=== PATIENT | male | born 1965 | race Caucasian/White ===

== ENCOUNTER 2016-11-29 11:17 | Day surgery (SDC) | payer BC ==
[2016-11-28 13:38] VITALS: BMI 31.7
[~2016-11-29 11:17] MED LIST: SODIUM CHLORIDE 0.9% 1,000 ML IV SCH
[2016-11-29 11:52] VITALS: RESP 16; TEMP 97.9
[2016-11-29 11:56] LABS: CH 30.9; CHCM 34.1; HCT 42.7 % (39.0-53.0); HDW 2.46; HGB 14.5 gm/dL (13.0-17.5); MCH 30.8 pg (25.0-35.0); MCHC 33.9 g/dL (31.0-37.0); MCV 90.8 fL (80.0-100.0); Mean Platelet Volume 6.6; RDW 13.1 % (11.5-15.5); WBC 8.9 k/uL (3.8-10.6)
[2016-11-29 12:04] LABS: Glucose,Whole Blood 173 mg/dL (75-99)
[2016-11-29 12:09] LABS: Anion Gap 10 mmol/L; Blood Urea Nitrogen 14 mg/dL (9-20); Calcium 9.2 mg/dL (8.4-10.2); Carbon Dioxide 23 mmol/L (22-30); Chloride 106 mmol/L (98-107); Cholesterol 133 mg/dL (<200); Glucose 175 mg/dL (74-99); HDL Cholesterol 35 mg/dL (40-60); Non-African American GFR(MDRD) >60 (>60 ml/min/1.73 sqM); Potassium 4.6 mmol/L (3.5-5.1); Sodium 139 mmol/L (137-145); Triglycerides 302 mg/dL (<150)
[2016-11-29] MEDS ORDERED: PROPOFOL 10 MG/ML 20 ML VIAL IV ONE (12:41)
[2016-11-29] MEDS ORDERED: fentaNYL (PF) 50 MCG/ML 2 ML AMP ONE (12:41)
[2016-11-29] MEDS ORDERED: LIDOCAINE 1% INJ 10MG/ML (20 ML MDV) ONE (12:41)
[2016-11-29] MEDS ORDERED: SODIUM CHLORIDE 0.9% 500 ML IV ONE (12:41)
[2016-11-29 14:07] VITALS: BP 104/62; PULSE 72
[2016-11-29 14:19] LABS: Hemoglobin A1C 8.2 % (4.2-6.1)
--- NOTE | 2016-11-29 14:51 | CC ---
Mr. Buenrostro has known ischemic cardiomyopathy with high DFT's. He was brought in for ICD interrogation and DFT testing on anesthesia. Shock and P-wave protocol was used to induce ventricular fibrillation. This was adequately detected at least sensitivity with 3 dropouts unsuccessfully, internally defibrillated with a 20 joule shock, charge time of 4 seconds, shocking impedance 69 ohms, no post-shock noise. The device was then reprogrammed, sensitivity was reprogrammed to 0.45 mV, pacing threshold was 1.25 v at 0.8 ms, R-wave 2.9 mV. Two zones of therapy, there is a VT zone of 176 beats a minute with extending detections. VF zone at 214 beats per minute with extended detections. Appropriate antitachycardiac therapy with cardioversion defibrillation programmed. A monitor VT zone is programmed. IMPRESSION: Ischemic cardiomyopathy high DVT and diminutive R waves, adequate sensing was noted During VF detection at least sensitivity. DFT at about 20 joules. MTDD
== END 2016-11-29 14:10 | disposition home or self-care (01) ==
LOC: CATHEP 11:17
PROVIDERS: ATTEND Internal Medicine Clinical Cardiac Electrophysiology
DX: I25.5 Ischemic cardiomyopathy (principal); Z45.02 Encounter for adjustment and management of automatic implantable cardiac defibrillator; I25.10 Atherosclerotic heart disease of native coronary artery without angina pectoris; Z95.5 Presence of coronary angioplasty implant and graft; I10 Essential (primary) hypertension; E78.5 Hyperlipidemia, unspecified; Z82.49 Family history of ischemic heart disease and other diseases of the circulatory system; E11.9 Type 2 diabetes mellitus without complications; Z79.84 Long term (current) use of oral hypoglycemic drugs; Z79.82 Long term (current) use of aspirin; Z79.891 Long term (current) use of opiate analgesic; Z79.899 Other long term (current) drug therapy; Z88.5 Allergy status to narcotic agent; Z88.8 Allergy status to other drugs, medicaments and biological substances; Z91.09 Other allergy status, other than to drugs and biological substances
CPT/HCPCS: 93642; 80061; 80048; 83036; 85027; J2001; J3010; J2704

== ENCOUNTER 2018-10-01 05:59 | Day surgery (SDC) | payer BC ==
[2018-09-26 15:28] VITALS: BMI 32.5
[2018-10-01] MEDS ORDERED: ASPIRIN 325 MG TAB PO STA (06:06)
[2018-10-01] MEDS ORDERED: ALPRAZolam 0.25 MG TAB PO PRN (06:06)
[2018-10-01] MEDS ORDERED: SODIUM CHLORIDE 0.9% 1,000 ML in EMPTY BAG 1 BAG IV ONE (06:06)
[2018-10-01] MEDS ORDERED: ATORVASTATIN 80 MG TAB PO STA (06:06)
[2018-10-01] MEDS ORDERED: ALPRAZolam 0.5 MG TAB PO PRN (06:06)
[2018-10-01] MEDS ORDERED: NITROGLYCERIN SL TABS 0.4 MG TAB SUBLINGUAL PRN (06:06)
[2018-10-01] MEDS ORDERED: HEPARIN SODIUM 1,000 UN/ML (10ML VL) ONE (07:23)
[2018-10-01] MEDS ORDERED: VERAPAMIL 2.5 MG/ML 2 ML AMP ONE (07:23)
[2018-10-01 07:24] LABS: Glucose,Whole Blood 207 mg/dL (75-99)
[2018-10-01 07:26] VITALS: TEMP 99
[2018-10-01] MEDS ORDERED: SODIUM CHLORIDE 0.9% 1,000 ML IV ONE ×2 (07:26→08:18)
[2018-10-01] MEDS ORDERED: BENZOCAINE SPRAY 1 CAN MUCOUS MEM ONE (07:34)
[2018-10-01 07:35] LABS: Basophils # (A) 0.1 k/uL (0-0.2); Basophils % (A) 1 %; Eosinophils # (A) 0.5 k/uL (0-0.7); Eosinophils % (A) 6 %; HCT 40.1 % (39.0-53.0); HGB 13.2 gm/dL (13.0-17.5); Lymphocytes # (A) 2.1 k/uL (1.0-4.8); Lymphocytes % (A) 25 %; MCH 29.7 pg (25.0-35.0); MCHC 33.1 g/dL (31.0-37.0); MCV 89.9 fL (80.0-100.0); Mean Platelet Volume 6.4; Monocytes # (A) 0.5 k/uL (0-1.0); Monocytes % (A) 7 %; Neutrophils # (A) 4.9 k/uL (1.3-7.7); Neutrophils % (A) 60 %; Platelet Count 257 k/uL (150-450); RBC 4.46 m/uL (4.30-5.90); RDW 12.7 % (11.5-15.5); WBC 8.2 k/uL (3.8-10.6)
[2018-10-01] MEDS ORDERED: MIDAZOLAM (PF) 2 MG/2 ML VIAL IV ONE ×2 (07:35→07:37)
[2018-10-01] MEDS ORDERED: fentaNYL (PF) 50 MCG/ML 2 ML AMP IV ONE (07:35)
[2018-10-01 07:42] VITALS: RESP 16
[2018-10-01 07:57] LABS: Anion Gap 6 mmol/L; Blood Urea Nitrogen 20 mg/dL (9-20); Carbon Dioxide 25 mmol/L (22-30); Chloride 108 mmol/L (98-107); Glucose 196 mg/dL (74-99); Potassium 4.4 mmol/L (3.5-5.1); Sodium 139 mmol/L (137-145)
[2018-10-01] MEDS ORDERED: LIDOCAINE 1% INJ 10MG/ML (20 ML MDV) SQ ONE (08:13)
[2018-10-01] MEDS ORDERED: VERAPAMIL SYRINGE (5 MG/10 ML) INTRAARTER ONE (08:15)
[2018-10-01] MEDS ORDERED: HEPARIN SODIUM 1,000 UN/ML (10ML VL) IV ONE (08:16)
--- NOTE | 2018-10-01 08:24 | ECHOT ---
TRANSESOPHAGEAL ECHOCARDIOGRAM DATE OF SERVICE: October 01, 2018 PERFORMING PHYSICIAN: Felton Yañez MD, coal hauler operator. PROCEDURE PERFORMED: Transesophageal echocardiogram. INDICATION: This is a pleasant 52-year-old gentleman with known history of coronary artery disease and prior stenting of the RCA and LAD and also known bicuspid aortic valve, underwent recently a transthoracic echocardiogram showed evidence of moderate to severe aortic insufficiency and mild aortic stenosis. Because of that, he was brought today to undergo transesophageal echocardiogram as well as a heart catheterization. COMPLICATION: None. LEVEL OF SEDATION: Moderate with sedation length of 16 minutes. PROCEDURE DESCRIPTION: After obtaining an informed consent, explaining the procedure, benefits, risks, complications and alternatives, the patient was brought to the transesophageal echocardiogram suite. A pulse oximetry and heart rate monitors were attached to the patient prior to the procedure. The patient's throat was sprayed using lidocaine locally. Following that, the patient was turned into left lateral position. A bite guard was placed and the patient was then sedated with the above doses of Versed and fentanyl in divided doses. Following that, the transesophageal echocardiogram probe was advanced through the bite guard into the mid esophagus where 2-D echocardiogram images as well as color Doppler images of various cardiac structures were obtained. We evaluated the interatrial septum using 2-D echocardiogram, color Doppler, and contrast study. The procedure was completed. There were no complications. FINDINGS: The left ventricle appeared to be dilated. Left ventricular systolic function is impaired with EF between 30% to 35% with a global hypokinesia. Right ventricle appeared to be of normal size and function. The left atrium and right atrium appeared to be mildly dilated. The aortic valve is bicuspid valve with fusion of the left and noncoronary cusp and evidence of moderate aortic insufficiency and mild aortic stenosis. The mitral valve seems to be mildly thickened with mild MR. Normal tricuspid valve and pulmonic valve seen. Aortic root is mildly dilated and measures 4.0 cm. CONCLUSION: 1. Impaired left ventricular function with ejection fraction between 30% to 35%. 2. Mild biatrial enlargement. 3. Bicuspid aortic valve with evidence of moderate aortic insufficiency and mild aortic stenosis. 4. Mildly thickened mitral valve leaflets with mild to moderate mitral regurgitation. 5. Mild tricuspid regurgitation and mild pulmonic insufficiency. 6. Mildly dilated aortic root at 4.0 cm. 7. No evidence of pericardial effusion. MMODL / IJN: [id number] /
[2018-10-01] MEDS ORDERED: IOPAMIDOL-370 125ML BTL INJ ONE (08:25)
[2018-10-01] MEDS ORDERED: IOPAMIDOL-370 50ML BTL INJ ONE (08:26)
[2018-10-01] MEDS ORDERED: RX INFO: IV CONTRAST WAS GIVEN 1 EACH MISC MISCELLANE PRN (08:31)
[2018-10-01] MEDS ORDERED: SODIUM CHLORIDE 0.9% 1,000 ML IV SCH (08:45)
[2018-10-01 08:49] LABS: Glucose,Whole Blood 194 mg/dL (75-99)
--- NOTE | 2018-10-01 09:30 | CC ---
CARDIAC CATHETERIZATION REPORT DATE OF SERVICE: October 01, 2018 PERFORMING PHYSICIAN: Felton Yañez MD, auto body detailer. PROCEDURE PERFORMED: 1. Selective right and left coronary angiogram. 2. Left heart catheterization. 3. Aortic root angiogram. INDICATION: This is a 52-year-old gentleman with history of coronary artery disease and prior stenting of the LAD and RCA as well as ischemic cardiomyopathy, and status post AICD and also known bicuspid aortic valve, underwent recently a transthoracic echocardiogram revealed evidence of bicuspid aortic valve with moderate to severe aortic insufficiency and mild aortic stenosis. APPROACH: Right radial artery. COMPLICATION: None. LEVEL OF SEDATION: Moderate with sedation length of 15 minutes. PROCEDURE DESCRIPTION: After obtaining an informed consent, the patient was brought to the cardiac blood bank laboratory technologist. The right radial artery was cannulated using micropuncture technique, the micropuncture wire passed easily then I placed a 6-Korean sheath in the right radial artery. After that I gave the patient 2 mg of verapamil IA and 10,000 units of heparin IV. I did selective right and left coronary angiogram using JR4 and JL3.5 catheters. Left heart catheterization and aortic root angiogram performed using 5-Korean pigtail catheter. The procedure was completed without any complication. SELECTIVE CORONARY ANGIOGRAM: 1. The right coronary artery is a large caliber vessel and it is a dominant vessel. The RCA appeared to be angiographically normal. Distally it bifurcates into PDA and PLV branches. The PDA branch appeared to have mild disease only and the PLV branch has intermediate disease in the midportion. That disease appeared to be distal to a stented segment. 2. The left main is angiographically normal. It bifurcates into the left circumflex and left anterior descending artery. The left circumflex is chronically occluded after the takeoff of a medium-sized obtuse marginal branch. It fills by left-to- left collateral. 3. The LAD: The proximal LAD appeared to be angiographically normal. The mid LAD appeared to be stented and the stent is patent. The LAD distally appeared to have intermediate disease only in the range of 50%, seems to be unchanged compared to before. HEMODYNAMICS: The left ventricular end-diastolic pressure appeared to be in the range of 10 mmHg with mild gradient across the aortic valve. AORTIC ROOT: Aortic root angiogram was performed in the KEMP projection and using a power injection. There was only 1 to 2+ AI. CONCLUSION: 1. Intermediate disease involving the PLV branch of the RCA distal to a stented segment. 2. 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 3. Intermediate disease involving the mid to distal LAD. 4. Mild aortic stenosis. 5. Moderate aortic insufficiency. POSTPROCEDURE MANAGEMENT: Giving the above anatomy, I do recommend maximized medical treatment and follow up with the patient. MMALEXUS / IJN: [id number] /
[2018-10-01 12:25] VITALS: BP 111/75; PULSE 75
== END 2018-10-01 13:35 | disposition home or self-care (01) ==
LOC: CATHCVL 05:59
PROVIDERS: ATTEND Internal Medicine Interventional Cardiology
DX: I25.10 Atherosclerotic heart disease of native coronary artery without angina pectoris (principal); I25.82 Chronic total occlusion of coronary artery; I08.3 Combined rheumatic disorders of mitral, aortic and tricuspid valves; I10 Essential (primary) hypertension; Q23.1 Congenital insufficiency of aortic valve; I25.5 Ischemic cardiomyopathy; Z95.810 Presence of automatic (implantable) cardiac defibrillator; E11.9 Type 2 diabetes mellitus without complications; E78.5 Hyperlipidemia, unspecified; Z82.49 Family history of ischemic heart disease and other diseases of the circulatory system; Z95.5 Presence of coronary angioplasty implant and graft; Z79.84 Long term (current) use of oral hypoglycemic drugs; Z79.82 Long term (current) use of aspirin; Z79.891 Long term (current) use of opiate analgesic; Z79.899 Other long term (current) drug therapy; Z88.5 Allergy status to narcotic agent; Z88.8 Allergy status to other drugs, medicaments and biological substances; Z91.09 Other allergy status, other than to drugs and biological substances
CPT/HCPCS: 93312; 93320; 93325; 93458; 93567; 80048; 85025; C1769; C1894; J2001; J3010; J1644; Q9967 ×2; J2250

== ENCOUNTER → 2020-05-13 | Day surgery (SDC) | payer BC ==
[2020-05-11 09:45] VITALS: BMI 32.2
[~2020-05-13] MED LIST changes: +ALPRAZolam 0.25 MG TAB PO PRN; +ALPRAZolam 0.5 MG TAB PO PRN; +ASPIRIN 325 MG TAB PO STA; +ATORVASTATIN 80 MG TAB PO STA; +HEPARIN SODIUM 1,000 UN/ML (10ML VL) ONE; +IOPAMIDOL-370 125ML BTL INJ ONE; +LIDOCAINE 1% INJ 10MG/ML (20 ML MDV) ONE; +LIDOCAINE 1% INJ 10MG/ML (20 ML MDV) SQ ONE; +MIDAZOLAM 2 MG/2 ML VIAL IV ONE; +NITROGLYCERIN SL TABS 0.4 MG TAB SUBLINGUAL PRN; +RX INFO: IV CONTRAST WAS GIVEN 1 EACH MISC MISCELLANE PRN; +SODIUM CHLORIDE 0.9% 1,000 ML IV ONE; +SODIUM CHLORIDE 0.9% 1,000 ML in EMPTY BAG 1 BAG IV ONE; +VERAPAMIL 2.5 MG/ML 2 ML AMP ONE
[2020-05-13 10:54] LABS: Glucose,Whole Blood 161 mg/dL (75-99)
[2020-05-13 10:57] VITALS: RESP 16; TEMP 99
[2020-05-13] MEDS: VERAPAMIL SYRINGE (5 MG/10 ML) INTRAARTER ONE ×2 (13:03→13:17)
--- NOTE | 2020-05-13 16:08 | CC ---
CARDIAC CATHETERIZATION REPORT DATE OF SERVICE: 05/13/2020 PERFORMING PHYSICIAN: Felton Yañez M.D. PROCEDURE PERFORMED: 1. Selective right and left coronary angiogram. INDICATION: This is a 54-year-old gentleman with coronary artery disease and prior stenting of the RCA and LAD who was experiencing symptoms of chest discomfort and underwent myocardial perfusion imaging and stress test. That revealed lateral ischemia. Because of that, a heart catheterization was advised. APPROACH: Right radial artery. COMPLICATIONS: None. LEVEL OF SEDATION: Moderate, with sedation length of 18 minutes. PROCEDURE DESCRIPTION: After obtaining informed consent, the patient was brought to the cardiac director of laboratory operations. The right radial artery was cannulated using micropuncture technique. The micropuncture wire passed easily. Then I placed a 6-Nepali sheath in the right radial artery. After that I gave the patient 2 mg of verapamil IA and 10,000 units of heparin IV. Selective right and left coronary angiogram was performed with JR4 and JL3.5 catheters. The procedure was completed without any complication. SELECTIVE CORONARY ANGIOGRAM: 1. The right coronary artery is a large-caliber vessel. It is a dominant vessel. The RCA is stented in the mid portion and the stent is patent. Distally it bifurcates into PDA and PLV branches. The PDA branch has mild disease only and the PLV branch has intermediate lesion in the mid portion. 2. The left main is angiographically normal. It bifurcates into LCX and LAD. 3. The LCX is a moderate-caliber vessel, a nondominant vessel. The proximal left circumflex is normal and gives rise to an OM1 which appeared to be normal. The proximal left circumflex after the bifurcation of OM1 is chronically occluded and fills by ipsilateral collateral. 4. The LAD. The proximal LAD is stented, and the stent is patent. The mid LAD has an intermediate lesion that appeared to be in the range of 60% to 70%. The LAD gives rise to a diagonal branch which seems to be normal. CONCLUSION: 1. Patent stent in the mid RCA. 2. Intermediate disease involving the PLV branch of the RCA. 3. Normal left main coronary artery. 4. 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 5. Intermediate to severe lesion involving the mid LAD. POST-PROCEDURE MANAGEMENT: 1. Given the above anatomy, I would advise maximized medical treatment. 2. Follow up with the patient. MMODL / IJN: [id number] /
[2020-05-13 17:21] VITALS: BP 115/71; PULSE 69
== END ==
LOC: CATHCVL 10:19
PROVIDERS: ATTEND Internal Medicine Interventional Cardiology
DX: I25.110 Atherosclerotic heart disease of native coronary artery with unstable angina pectoris (principal); I25.82 Chronic total occlusion of coronary artery; I25.5 Ischemic cardiomyopathy; I10 Essential (primary) hypertension; E78.00 Pure hypercholesterolemia, unspecified; E11.9 Type 2 diabetes mellitus without complications; E78.5 Hyperlipidemia, unspecified; Z82.49 Family history of ischemic heart disease and other diseases of the circulatory system; Z79.82 Long term (current) use of aspirin; Z79.899 Other long term (current) drug therapy; Z79.84 Long term (current) use of oral hypoglycemic drugs; Z91.048 Other nonmedicinal substance allergy status; Z88.5 Allergy status to narcotic agent; Z88.8 Allergy status to other drugs, medicaments and biological substances
CPT/HCPCS: 93454; C1769; C1894; J2250; J2001; J1644; Q9967

== ENCOUNTER 2020-08-10 09:53 | Day surgery (SDC) | payer BC ==
[2020-08-07 08:57] VITALS: BMI 34.9
[~2020-08-10 09:53] MED LIST changes: -ALPRAZolam 0.25 MG TAB PO PRN; -ALPRAZolam 0.5 MG TAB PO PRN; -ASPIRIN 325 MG TAB PO STA; -ATORVASTATIN 80 MG TAB PO STA; -HEPARIN SODIUM 1,000 UN/ML (10ML VL) ONE; -IOPAMIDOL-370 125ML BTL INJ ONE; -LIDOCAINE 1% INJ 10MG/ML (20 ML MDV) ONE; -LIDOCAINE 1% INJ 10MG/ML (20 ML MDV) SQ ONE; -MIDAZOLAM 2 MG/2 ML VIAL IV ONE; -NITROGLYCERIN SL TABS 0.4 MG TAB SUBLINGUAL PRN; -RX INFO: IV CONTRAST WAS GIVEN 1 EACH MISC MISCELLANE PRN; -SODIUM CHLORIDE 0.9% 1,000 ML IV ONE; -SODIUM CHLORIDE 0.9% 1,000 ML in EMPTY BAG 1 BAG IV ONE; -VERAPAMIL 2.5 MG/ML 2 ML AMP ONE; +ceFAZolin 1 GM in SODIUM CHLORIDE 0.9% 250 ML IRRIGATION PRN
[2020-08-10 10:21] VITALS: RESP 16; TEMP 98.4
[2020-08-10 10:23] LABS: Glucose,Whole Blood 193 mg/dL (75-99)
[2020-08-10 10:34] LABS: Basophils # (A) 0.1 k/uL (0-0.2); Basophils % (A) 1 %; Eosinophils # (A) 0.6 k/uL (0-0.7); Eosinophils % (A) 7 %; HCT 41.6 % (39.0-53.0); HGB 14.4 gm/dL (13.0-17.5); Lymphocytes # (A) 1.5 k/uL (1.0-4.8); Lymphocytes % (A) 19 %; MCH 31.1 pg (25.0-35.0); MCHC 34.6 g/dL (31.0-37.0); MCV 89.7 fL (80.0-100.0); Mean Platelet Volume 7.4; Monocytes # (A) 0.6 k/uL (0-1.0); Monocytes % (A) 7 %; Neutrophils # (A) 5.3 k/uL (1.3-7.7); Neutrophils % (A) 65 %; Platelet Count 235 k/uL (150-450); RBC 4.63 m/uL (4.30-5.90); RDW 12.7 % (11.5-15.5); WBC 8.1 k/uL (3.8-10.6)
[2020-08-10 10:52] LABS: African American GFR (CKD) >90 (>60 ml/min/1.73 sqM); Anion Gap 7 mmol/L; Blood Urea Nitrogen 19 mg/dL (9-20); Carbon Dioxide 25 mmol/L (22-30); Chloride 108 mmol/L (98-107); Glucose 212 mg/dL (74-99); Non-African American GFR(CKD) >90 (>60 ml/min/1.73 sqM); Potassium 4.6 mmol/L (3.5-5.1); Sodium 140 mmol/L (137-145)
[2020-08-10] MEDS ORDERED: fentaNYL (PF) 50 MCG/ML 2 ML AMP ONE (13:17)
[2020-08-10] MEDS ORDERED: MIDAZOLAM 2 MG/2 ML VIAL ONE (13:17)
[2020-08-10] MEDS ORDERED: PROPOFOL 10 MG/ML 20 ML VIAL IV ONE (13:17)
[2020-08-10] MEDS ORDERED: LIDOCAINE 1% INJ 10MG/ML (20 ML MDV) ONE (13:47)
[2020-08-10] MEDS ORDERED: LIDOCAINE 1% INJ 10MG/ML (20 ML MDV) SQ ONE (14:03)
[2020-08-10] MEDS ORDERED: ACETAMINOPHEN IV (For NPO) 1,000 MG in EMPTY BAG 1 BAG IVPB ONE (14:51)
[2020-08-10] MEDS ORDERED: ACETAMINOPHEN TAB 325 MG TAB PO PRN (14:51)
[2020-08-10] MEDS ORDERED: HYDROcodone/APAP 5-325MG 1 EACH TAB PO PRN (14:51)
--- NOTE | 2020-08-10 14:55 | P.PRLE ---
RE: Chase Buenrostro Dear Dr. Pete Stone underwent a single chamber ICD generator change. His generator had reached ROBYN His medications remain unchanged Follow-up with you and Dr. Cordova as before Thank you for entrusting me with the care of the patient Warm regards Sincerely Moreno Hernandez
--- NOTE | 2020-08-10 15:33 | CE ---
CARDIAC ELECTROPHYSIOLOGY REPORT Chase Buenrostro is a 54-year-old male patient with known ischemic cardiomyopathy, single- chamber ICD implantation in the past. Device at [facility], class 2 CHF, on guideline- directed medical treatment. His device at [facility] and he was brought in for ICD generator change. First cinefluoroscopy of the lead was performed. He has a single coil single-chamber ICD lead screwed in the low RV septum. No fractures or breaks were noted. The left pectoral area was prepped and draped as per protocol and 1% lidocaine was used for local anesthesia. A 4 cm incision was made parallel to the deltopectoral groove, about 1.5 cm medial to it. The incision was carried down to the level of the pectoralis muscle. A subfascial pocket was made. Hemostasis was assured. The generator was explanted. The lead was freed from the surrounding soft tissue and capsule. Partial capsulectomy was performed. The new generator was implanted. The lead was interrogated. The wound was closed in 3 layers and dressed per protocol and DFT testing was performed. The chronic RV lead was Medtronic model #6935, 65 cm in length and serial #[id number]. R-waves 5.3, pacing impedance 304 ohms, high-voltage impedance 71 ohms, pacing threshold 1.75 V at 0.4 milliseconds. The new ICD generator was a Medtronic model number NXOM6Q9, serial #[id number]. DFT testing was performed. Shock and T-wave protocol was used to induce ventricular fibrillation. This was adequately and appropriately detected at least sensitivity and successfully internally defibrillated with a 10-joule shock. The charge time was 4.3 seconds. Shocking impedance 71 ohms. No post shock noise. Post shock, he went into atrial fibrillation briefly for 20-30 seconds and spontaneously converted back to sinus rhythm. The device was then programmed to 2 zones of therapy, VT zone of 176 beats per minute, VF zone at 214 beats per minute. Appropriate antitachycardia pacing cardioversion defibrillation programmed. Sensitivity is programmed at 0.45. MMODL / IJN: [id number] /
[2020-08-10 16:38] VITALS: BP 107/71; PULSE 80
== END 2020-08-10 17:38 | disposition home or self-care (01) ==
LOC: CATHEP 09:53
PROVIDERS: ATTEND Internal Medicine Clinical Cardiac Electrophysiology
DX: Z45.02 Encounter for adjustment and management of automatic implantable cardiac defibrillator (principal); I25.10 Atherosclerotic heart disease of native coronary artery without angina pectoris; I25.82 Chronic total occlusion of coronary artery; I25.5 Ischemic cardiomyopathy; E78.5 Hyperlipidemia, unspecified; E11.9 Type 2 diabetes mellitus without complications; I35.1 Nonrheumatic aortic (valve) insufficiency; I25.2 Old myocardial infarction; I25.9 Chronic ischemic heart disease, unspecified; I11.0 Hypertensive heart disease with heart failure; I50.9 Heart failure, unspecified; Z95.5 Presence of coronary angioplasty implant and graft; Z79.82 Long term (current) use of aspirin; Z79.891 Long term (current) use of opiate analgesic; Z79.899 Other long term (current) drug therapy; Z79.84 Long term (current) use of oral hypoglycemic drugs; Z91.09 Other allergy status, other than to drugs and biological substances; Z88.5 Allergy status to narcotic agent; Z88.6 Allergy status to analgesic agent; Z88.8 Allergy status to other drugs, medicaments and biological substances; Z82.49 Family history of ischemic heart disease and other diseases of the circulatory system
CPT/HCPCS: 93641; 33262; 80048; 85025; C1722; J0690; J2001; J0131

== ENCOUNTER 2023-09-03 21:41 | Inpatient (IN) | payer MEDICARE, BC ==
--- NOTE | 2023-09-03 22:13 | ED ---
General Adult HPI - General Chief complaint: Abdominal Pain Stated complaint: Abdominal Pain Time Seen by Provider: 09/03/23 21:50 Source: patient, EMS, RN notes reviewed, old records reviewed Mode of arrival: EMS Limitations: no limitations - History of Present Illness Initial comments: 57-year-old male with right-sided abdominal pain. Pain began within the last 24 hours. Patient had normal bowel movement. He states that there was a significant amount of time with the pain had resolved and then just prior to arrival the pain returned suddenly, right sided abdominal pain no specific flank pain. No hematuria. He had several episodes of vomiting secondary to pain. No fever. - Related Data Home Medications Medication Instructions Recorded Confirmed Aspirin 81 mg PO DAILY 10/10/13 08/10/20 Atorvastatin [Lipitor] 40 mg PO HS 10/10/13 08/10/20 Enalapril [Vasotec] 2.5 mg PO DAILY 10/10/13 08/10/20 Metoprolol Succinate [Toprol XL] 50 mg PO BID 10/10/13 08/10/20 Nitroglycerin Sl Tabs [Nitrostat] 0.4 mg SUBLINGUAL DIRECTED PRN 10/10/13 08/07/20 Cholecalciferol [Vitamin D3 (25 2,000 unit PO DAILY@1200 02/20/14 08/10/20 Mcg = 1000 Iu)] Dulaglutide [Trulicity] 1.5 mg SQ ARCE 09/26/18 08/10/20 traMADol HCL [Ultram] 100 mg PO Q6HR PRN 05/11/20 08/10/20 metFORMIN HCL [Glucophage] 500 mg PO BID 08/07/20 08/10/20 Allergies Allergy/AdvReac Type Severity Reaction Status Date / Time codeine Allergy Itching Verified 09/03/23 21:57 prochlorperazine edisylate Allergy FEELING OF Verified 09/03/23 21:57 [From Compazine] BEING HOT AND IRRITABLE prochlorperazine maleate Allergy FEELING OF Verified 09/03/23 21:57 [From Compazine] BEING HOT AND IRRITABLE diclofenac AdvReac joint & Verified 09/03/23 21:57 muscle pain, hands numb ADHESIVE TAPE Allergy Severe Rash/Hives Uncoded 09/03/23 21:57 BANANAS Allergy Severe THROAT Uncoded 09/03/23 21:57 FEELS SCRATCHY AND SWOLLEN muskmelon Allergy Severe THROAT Uncoded 09/03/23 21:57 FEELS SCRATCHY AND SWOLLEN Review of Systems ROS Statement: Those systems with pertinent positive or pertinent negative responses have been documented in the HPI. ROS Other: All systems not noted in ROS Statement are negative. Past Medical History Past Medical History: Asthma, Coronary Artery Disease (CAD), Chest Pain / Angina, Diabetes Mellitus, Hyperlipidemia, Hypertension, Myocardial Infarction ([place]), Osteoarthritis (OA) Additional Past Medical History / Comment(s): HX: Severe ischemic cardiomyopathy, chronic stable asthma, SOB W/ ACTIVITY, DJD, HX DIVERTICULITIS, aortic valve leaking per pt, Last Myocardial Infarction Date:: 11/10/16 History of Any Multi-Drug Resistant Organisms: MRSA Date of last positivie culture/infection: 2010 MDRO Source:: AREAS TO NECK,BACK,AND ARMPIT Past Surgical History: AICD, Bowel Resection, Heart Catheterization, Heart Yue terization With Stent, Hernia Repair Additional Past Surgical History / Comment(s): multiple cardiac cath's w/stents, MEDTRONIC AICD 2011. Colostomy with reversal, pain procedure Past Anesthesia/Blood Transfusion Reactions: Postoperative Nausea & Vomiting (PONV) Additional Past Anesthesia/Blood Transfusion Reaction / Comment(s): Pt has never received blood. Date of Last Stent Placement:: 02/23/15 Type of Cardiac Device: AICD Device Placement Date:: 2011 Past Psychological History: No Psychological Hx Reported Smoking Status: Never smoker - Past Family History Father Family Medical History: Chest Pain / Angina, Coronary Artery Disease (CAD), Hypertension, Myocardial Infarction ([place]) Additional Family Medical History / Comment(s): CABG Mother Family Medical History: CVA/TIA Additional Family Medical History / Comment(s): right carotid endarterectomy, rh eumatic fever Brother(s) Family Medical History: AICD/Pacemaker, Coronary Artery Disease (CAD), Hypertension Additional Family Medical History / Comment(s): CODED on treadmill at [facility] Office General Exam Limitations: no limitations General appearance: alert, in no apparent distress Head exam: Present: atraumatic, normocephalic Eye exam: Present: normal appearance, PERRL ENT exam: Present: normal exam Neck exam: Present: normal inspection Respiratory exam: Present: normal lung sounds bilaterally. Absent: respiratory distress, wheezes Cardiovascular Exam: Present: regular rate, normal rhythm GI/Abdominal exam: Present: soft, tenderness (Minimal right lower quadrant tenderness). Absent: distended, guarding, rebound Extremities exam: Present: normal inspection, normal capillary refill. Absent: pedal edema Neurological exam: Present: alert, oriented X3, CN II-XII intact. Absent: motor sensory deficit Psychiatric exam: Present: normal affect, normal mood Skin exam: Present: warm, dry, intact. Absent: cyanosis, diaphoretic Course Vital Signs 09/03/23 09/04/23 21:51 00:00 Temperature 98.1 F Pulse Rate 101 H 98 Respiratory 18 16 Rate Blood Pressure 117/84 98/53 O2 Sat by Pulse 94 L 99 Oximetry Medical Decision Making - Medical Decision Making Was pt. sent in by a medical professional or institution (, PA, PRESCHOOL PRINCIPAL, urgent care, hospital, or halfway...) When possible be specific @ -No Did you speak to anyone other than the patient for history (EMS, parent, family, police, friend...)? What history was obtained from this source @ -No Did you review nursing and triage notes (agree or disagree)? Why? @ -I reviewed and agree with nursing and triage notes Were old charts reviewed (outside hosp., previous admission, EMS record, old EKG , old radiological studies, urgent care reports/EKG's, halfway records)? Report findings @ -No old charts were reviewed Differential Abdominal Pain Men: Appendicitis, cholecystitis, diverticulosis, ischemic bowel, pancreatitis, hepatitis, UTI, gastroenteritis, AAA, incarcerated hernia, bowel obstruction, constipation, inflammatory bowel, hepatitis, peptic ulcer disease, splenic infarction, perforated viscus, testicular torsion, this is not meant to be an all-inclusive list EKG interpreted by me (3pts min.). @ -As above X-rays interpreted by me (1pt min.). @ -None done CT interpreted by me (1pt min.). @ -CT showing nonobstructing renal calculi, no acute finding to explain this patient's pain. U/S interpreted by me (1pt. min.). @ -None done What testing was considered but not performed or refused? (CT, X-rays, U/S, labs)? Why? @ -None What meds were considered but not given or refused? Why? @ -None Did you discuss the management of the patient with other professionals (prof bell i.e. , PA, PRESCHOOL PRINCIPAL, lab, RT, psych nurse, socially responsible investment adviser, wood gluer, teacher, aoc plans intelligence officer, casey saw operator)? Give summary @[facility] Was smoking cessation discussed for >3mins.? @ -No Was critical care preformed (if so, how long)? @ -No Were there social determinants of health that impacted care today? How? (Homelessness, low income, unemployed, alcoholism, drug addiction, transportation, low edu. Level, literacy, decrease access to med. care, [place] [facility], rehab)? @ -No Was there de-escalation of care discussed even if they declined (Discuss DNR or withdrawal of care, Hospice)? DNR status @ -No What co-morbidities impacted this encounter? (DM, HTN, Smoking, COPD, CAD, Cancer, CVA, ARF, Chemo, Hep., AIDS, mental health diagnosis, sleep apnea, morbid obesity)? @ -Previous bowel resection Was patient admitted / discharged? Hospital course, mention meds given and route, prescriptions, significant lab abnormalities, going to OR and other pertinent info. @ -57-year-old male with right lower quadrant abdominal pain. Patient states the pain began somewhat abruptly. He does have hematuria, there is concern for renal colic versus other intra-abdominal pathology. Workup is initiated including CBC CMP. He has a white blood cell count at 18. Normal lactic acid. CT does not demonstrate obstructing renal calculi. Patient may have passed renal stone or have an alternative diagnosis. He continues to have pain in the emergency department. He is admitted for intractable abdominal pain. General surgery is placed on consult for evaluation of this pain. Undiagnosed new problem with uncertain prognosis? @ -No Drug Therapy requiring intensive monitoring for toxicity (Heparin, Nitro, Insu jak, Cardizem)? @ -No Were any procedures done? @ -No Diagnosis/symptom? @Intractable abdominal pain Acute, or Chronic, or Acute on Chronic? @Acute Uncomplicated (without systemic symptoms) or Complicated (systemic symptoms)? @ -Default Side effects of treatment? @ -No Exacerbation, Progression, or Severe Exacerbation? @ -No Poses a threat to life or bodily function? How? (Chest pain, USA, AR, pneumonia, PE, COPD, DKA, ARF, appy, cholecystitis, CVA, Diverticulitis, Homicidal, Suicidal, threat to staff... and all critical care pts) @ -No - Lab Data Result diagrams: 09/03/23 22:08 09/03/23 22:08 Lab Results 09/03/23 09/03/23 09/03/23 Range/Units 22:08 22:08 22:08 WBC 18.0 H (3.8-10.6) k/uL RBC 4.18 L (4.30-5.90) m/uL Hgb 13.2 (13.0-17.5) gm/dL Hct 38.7 L (39.0-53.0) % MCV 92.6 (80.0-100.0) fL MCH 31.5 (25.0-35.0) pg MCHC 34.0 (31.0-37.0) g/dL RDW 13.4 (11.5-15.5) % Plt Count 258 (150-450) k/uL MPV 8.1 Neutrophils % 88 % Lymphocytes % 5 % Monocytes % 4 % Eosinophils % 2 % Basophils % 0 % Neutrophils # 15.9 H (1.3-7.7) k/uL Lymphocytes # 1.0 (1.0-4.8) k/uL Monocytes # 0.7 (0-1.0) k/uL Eosinophils # 0.4 (0-0.7) k/uL Basophils # 0.1 (0-0.2) k/uL PT 10.8 (10.0-12.5) sec INR 1.0 (<1.2) APTT 21.0 L (22.0-30.0) sec Sodium 138 (137-145) mmol/L Potassium 5.0 (3.5-5.1) mmol/L Chloride 111 H (98-107) mmol/L Carbon Dioxide 17 L (22-30) mmol/L Anion Gap 10 mmol/L BUN 22 H (9-20) mg/dL Creatinine 1.06 (0.66-1.25) mg/dL Est GFR (CKD-EPI)AfAm 89 (>60 ml/min/1.73 sqM) Est GFR (CKD-EPI)NonAf 77 (>60 ml/min/1.73 sqM) Glucose 177 H (74-99) mg/dL Plasma Lactic Acid Dante (0.7-2.0) mmol/L Calcium 9.1 (8.4-10.2) mg/dL Total Bilirubin 2.2 H (0.2-1.3) mg/dL AST 44 (17-59) U/L ALT 36 (4-49) U/L Alkaline Phosphatase 78 (38-126) U/L Total Protein 6.8 (6.3-8.2) g/dL Albumin 4.0 (3.5-5.0) g/dL Amylase 58 (30-110) U/L Lipase 105 (23-300) U/L Urine Color Urine Appearance (Clear) Urine pH (5.0-8.0) Ur Specific Milton (1.001-1.035) Urine Protein (Negative) Urine Glucose (UA) (Negative) Urine Ketones (Negative) Urine Blood (Negative) Urine Nitrite (Negative) Urine Bilirubin (Negative) Urine Urobilinogen (<2.0) mg/dL Ur Leukocyte Esterase (Negative) Urine RBC (0-5) /hpf Urine WBC (0-5) /hpf Ur Squamous Epith Cells (0-4) /hpf Urine Bacteria (None) /hpf Urine Mucus (None) /hpf 09/03/23 09/03/23 Range/Units 22:08 22:25 WBC (3.8-10.6) k/uL RBC (4.30-5.90) m/uL Hgb (13.0-17.5) gm/dL Hct (39.0-53.0) % MCV (80.0-100.0) fL MCH (25.0-35.0) pg MCHC (31.0-37.0) g/dL RDW (11.5-15.5) % Plt Count (150-450) k/uL MPV Neutrophils % % Lymphocytes % % Monocytes % % Eosinophils % % Basophils % % Neutrophils # (1.3-7.7) k/uL Lymphocytes # (1.0-4.8) k/uL Monocytes # (0-1.0) k/uL Eosinophils # (0-0.7) k/uL Basophils # (0-0.2) k/uL PT (10.0-12.5) sec INR (<1.2) APTT (22.0-30.0) sec Sodium (137-145) mmol/L Potassium (3.5-5.1) mmol/L Chloride (98-107) mmol/L Carbon Dioxide (22-30) mmol/L Anion Gap mmol/L BUN (9-20) mg/dL Creatinine (0.66-1.25) mg/dL Est GFR (CKD-EPI)AfAm (>60 ml/min/1.73 sqM) Est GFR (CKD-EPI)NonAf (>60 ml/min/1.73 sqM) Glucose (74-99) mg/dL Plasma Lactic Acid Dante 1.4 (0.7-2.0) mmol/L Calcium (8.4-10.2) mg/dL Total Bilirubin (0.2-1.3) mg/dL AST (17-59) U/L ALT (4-49) U/L Alkaline Phosphatase (38-126) U/L Total Protein (6.3-8.2) g/dL Albumin (3.5-5.0) g/dL Amylase (30-110) U/L Lipase (23-300) U/L Urine Color Yellow Urine Appearance Clear (Clear) Urine pH 5.0 (5.0-8.0) Ur Specific Milton 1.025 (1.001-1.035) Urine Protein Trace H (Negative) Urine Glucose (UA) 3+ H (Negative) Urine Ketones 2+ H (Negative) Urine Blood Moderate H (Negative) Urine Nitrite Negative (Negative) Urine Bilirubin Negative (Negative) Urine Urobilinogen <2.0 (<2.0) mg/dL Ur Leukocyte Esterase Negative (Negative) Urine RBC 48 H (0-5) /hpf Urine WBC 1 (0-5) /hpf Ur Squamous Epith Cells <1 (0-4) /hpf Urine Bacteria Rare H (None) /hpf Urine Mucus Few H (None) /hpf Disposition Clinical Impression: Intractable abdominal pain Disposition: ADMITTED IP TO THIS [facility] Condition: Stable Is patient prescribed a controlled substance at d/c from ED?: No Referrals: Efraín Freeman MD [REFERRING] - 1-2 days Time of Disposition: 01:12
[2023-09-03 22:35] LABS: Basophils # (A) 0.1 k/uL (0-0.2); Basophils % (A) 0 %; Eosinophils # (A) 0.4 k/uL (0-0.7); Eosinophils % (A) 2 %; HCT 38.7 % (39.0-53.0); HGB 13.2 gm/dL (13.0-17.5); Lymphocytes % (A) 5 %; MCH 31.5 pg (25.0-35.0); MCV 92.6 fL (80.0-100.0); Mean Platelet Volume 8.1; Monocytes # (A) 0.7 k/uL (0-1.0); Monocytes % (A) 4 %; Neutrophils # (A) 15.9 k/uL (1.3-7.7); Neutrophils % (A) 88 %; Platelet Count 258 k/uL (150-450); RBC 4.18 m/uL (4.30-5.90); RDW 13.4 % (11.5-15.5)
[2023-09-03 22:44] LABS: ALT 36 U/L (4-49); AST 44 U/L (17-59); African American GFR (CKD) 89 (>60 ml/min/1.73 sqM); Alkaline Phosphatase 78 U/L (38-126); Amylase 58 U/L (30-110); Anion Gap 10 mmol/L; Blood Urea Nitrogen 22 mg/dL (9-20); Calcium 9.1 mg/dL (8.4-10.2); Carbon Dioxide 17 mmol/L (22-30); Chloride 111 mmol/L (98-107); Glucose 177 mg/dL (74-99); Lipase 105 U/L (23-300); Non-African American GFR(CKD) 77 (>60 ml/min/1.73 sqM); Sodium 138 mmol/L (137-145); Total Bilirubin 2.2 mg/dL (0.2-1.3); Total Protein 6.8 g/dL (6.3-8.2)
[2023-09-03] MEDS: HYDROmorphone 0.5 MG/0.5 ML SYRINGE IVP STA ×2 (22:44→23:54)
[2023-09-03 22:45] LABS: Prothrombin Time 10.8 sec (10.0-12.5)
[2023-09-03 23:27] LABS: Appearance,Urine Clear (Clear); Bacteria,Urine Rare /hpf; Bilirubin,Urine Negative (Negative); Blood,Urine Moderate (Negative); Color,Urine Yellow; Glucose,Urine (UA) 3+ (Negative); Leukocyte Esterase,Urine Negative (Negative); Mucus,Urine Few /hpf; Nitrite,Urine Negative (Negative); Protein,Urine Trace (Negative); RBC,Urine 48 /hpf (0-5); Specific Gravity,Urine 1.025 (1.001-1.035); Squamous Epithelial Cell,Urine <1 /hpf (0-4); Urobilinogen,Urine <2.0 mg/dL (<2.0); WBC,Urine 1 /hpf (0-5)
[2023-09-03 23:38] LABS: Ketones,Urine 2+ (Negative)
[2023-09-03] MEDS: SODIUM CHLORIDE 0.9% 500 ML 500 ML IV ONE (23:54)
--- NOTE | 2023-09-04 01:01 | CT ---
EXAM: CT Abdomen and Pelvis Without Intravenous Contrast CLINICAL HISTORY: ITS.REASON CT Reason: rt ab pain TECHNIQUE: Axial computed tomography images of the abdomen and pelvis without intravenous contrast. CTDI is 12.6 mGy and DLP is 788.6 mGy-cm. This CT exam was performed using one or more of the following dose reduction techniques: automated exposure control, adjustment of the mA and/or kV according to patient size, and/or use of iterative reconstruction technique. COMPARISON: No relevant prior studies available. FINDINGS: Lung bases: Unremarkable. No mass. No consolidation. ABDOMEN: Liver: Unremarkable. Gallbladder and bile ducts: Unremarkable. No calcified stones. No ductal dilation. Pancreas: Unremarkable. No ductal dilation. Spleen: Unremarkable. No splenomegaly. Adrenals: Unremarkable. No mass. Kidneys and ureters: Nonobstructing bilateral renal stones measuring up to 7 mm in the LEFT lower pole. Renal cysts. Stomach and bowel: Partial resection of the transverse colon. Diverticulosis, without acute diverticulitis. No small bowel obstruction. No free intraperitoneal air. PELVIS: Appendix: No findings to suggest acute appendicitis. Bladder: Decompressed urinary bladder. No stones. Reproductive: Unremarkable as visualized. ABDOMEN and PELVIS: Intraperitoneal space: Unremarkable. No free air. No significant fluid collection. Bones/joints: Degenerative changes of the spine. No acute fracture. No dislocation. Soft tissues: Unremarkable. Vasculature: Atherosclerotic changes of the aorta. No abdominal aortic aneurysm. Lymph nodes: Unremarkable. No enlarged lymph nodes. IMPRESSION: 1. Partial resection of the transverse colon. 2. Nonobstructing bilateral renal stones measuring up to 7 mm in the LEFT lower pole. 3. Diverticulosis, without acute diverticulitis. No small bowel obstruction. No free intraperitoneal air.
[2023-09-04] MEDS ORDERED: NALOXONE 0.4 MG/ML 1 ML VIAL IV PRN (01:10)
[2023-09-04] MEDS ORDERED: ACETAMINOPHEN TAB 325 MG TAB PO PRN (01:10)
[2023-09-04] MEDS: HYDROmorphone 0.5 MG/0.5 ML SYRINGE IVP STA (01:26)
[2023-09-04] MEDS: SODIUM CHLORIDE 0.9% 1,000 ML IV SCH (01:27)
[2023-09-04] MEDS: HYDROmorphone 0.5 MG/0.5 ML SYRINGE IVP PRN (01:30)
[2023-09-04] MEDS: ONDANSETRON 4 MG/2 ML VIAL IVP PRN (12:52)
[2023-09-04 12:58] LABS: Glucose,Whole Blood 180 mg/dL (70-110)
[2023-09-04] MEDS ORDERED: DEXTROSE 50% SYRINGE 50 ML IVP PRN ×2 (13:01)
--- NOTE | 2023-09-04 13:05 | P.HPIM ---
History of Present Illness H&P Date: 09/04/23 Chief Complaint: abdominal pain and nausea vomiting Patient is a 57-year-old male with a past medical history of diabetes mellitus, hypertension, hyperlipidemia, chronic systolic heart failure status post ICD, coronary disease status post multiple stents who presents to the ED with right flank pain. Patient states that he initially had an episode last night which woke him up from his sleep. He states that it then resolved on its own. He states that he then carried on with his normal work to schedule. The pain then came back. This time it prompted him to come to the ED. Patient states that since he has been in the ED he has been having intermittent right flank pain. He states that the pain gets up to 10 out of 10. He states that the IV pain medications are helping with his pain however when it wears off the pain comes back and he needs to get another shot of IV pain meds. He states that it is associated with nausea vomiting. He states that since this morning he has not yet vomited. He denies any dysuria or hematuria. In the ED patient WBC was 18.0. Total bilirubin 2.2. Urine showed 2+ ketones and moderate blood. CT abdomen pelvis showed nonobstructing bilateral renal stones measuring up to 7 mm in the left lower lobe. Patient was admitted to the medicine service due to intractable abdominal pain. Review of systems: 10 ROS reviewed and are negative except as noted in HPI Physical exam General: No acute distress, awake and alert Eye: [PERRL, EOMI, normal conjunctiva]. HENT: [Normocephalic, clear tympanic membranes, normal hearing, moist oral mucosa, no scleral icterus, no sinus tenderness]. Neck: [Supple, non-tender, no carotid bruits, no JVD, no lymphadenopathy]. Lungs: [Clear to auscultation and percussion, non-labored respiration]. Heart: [Normal rate, regular rhythm, no murmur, gallop or edema]. Abdomen: [Soft, non-tender, non-distended, normal bowel sounds, no masses]. Musculoskeletal: [Normal range of motion and strength, no tenderness or swelling]. Skin: [Skin is warm, dry and pink, no rashes or lesions]. Neurologic: [Awake, alert, and oriented X3, CN II-XII intact]. Psychiatric: [Cooperative, appropriate mood and affect]. Assessment and plan Intractable abdominal pain. Could be passing of renal stone Continue with as needed Dilaudid 0.5 mg every 3 hours Continue with normal saline 75 cc an hour Consult general surgery for acute abdomen Consult urology Zofran as needed Clear liquid diet Microscopic hematuria Likely due to kidney stones Repeat UA outpatient Leukocytosis Secondary to vomiting No signs or symptoms of infection Trend CBC Mildly elevated bilirubin Patient denying any right upper quadrant pain Trend CMP Hypertension Continue with enalapril 2.5 mg daily, metoprolol 1 mg p.o. daily Chronic heart failure with reduced ejection fraction status post ICD Patient currently appears hypovolemic so we will hold off on spironolactone Monitor volume status while on gentle fluids Continue with PAYAM inhibitor and beta-mirela Hyperlipidemia Continue with statin Coronary disease status post stents Continue with statin Diabetes mellitus Hold oral meds Sliding scale insulin DVT prophylaxis: Subcu Lovenox Past Medical History Past Medical History: Asthma, Coronary Artery Disease (CAD), Chest Pain / Angina, Diabetes Mellitus, Hyperlipidemia, Hypertension, Myocardial Infarction ([place]), Osteoarthritis (OA) Additional Past Medical History / Comment(s): HX: Severe ischemic cardiomyopathy, chronic stable asthma, SOB W/ ACTIVITY, DJD, HX DIVERTICULITIS, aortic valve leaking per pt, Last Myocardial Infarction Date:: 11/10/16 History of Any Multi-Drug Resistant Organisms: MRSA Date of last positivie culture/infection: 2010 MDRO Source:: AREAS TO NECK,BACK,AND ARMPIT Past Surgical History: AICD, Bowel Resection, Heart Catheterization, Heart Catheterization With Stent, Hernia Repair Additional Past Surgical History / Comment(s): multiple cardiac cath's w/stents, MEDTRONIC AICD 2011. Colostomy with reversal, pain procedure Past Anesthesia/Blood Transfusion Reactions: Postoperative Nausea & Vomiting (PONV) Additional Past Anesthesia/Blood Transfusion Reaction / Comment(s): Pt has never received blood. Date of Last Stent Placement:: 02/23/15 Type of Cardiac Device: AICD Device Placement Date:: 2011 Past Psychological History: No Psychological Hx Reported Additional Psychological History / Comment(s): Pt resides with his spouse. He is independent. He drives. Smoking Status: Never smoker Past Alcohol Use History: Rare Past Drug Use History: None Reported - Past Family History Father Family Medical History: Chest Pain / Angina, Coronary Artery Disease (CAD), Hypertension, Myocardial Infarction ([place]) Additional Family Medical History / Comment(s): CABG Mother Family Medical History: CVA/TIA Additional Family Medical History / Comment(s): right carotid endarterectomy, rheumatic fever Brother(s) Family Medical History: AICD/Pacemaker, Coronary Artery Disease (CAD), Hypertension Additional Family Medical History / Comment(s): CODED on treadmill at [facility] Office Medications and Allergies Home Medications Medication Instructions Recorded Confirmed Type Enalapril [Vasotec] 2.5 mg PO DAILY 10/10/13 09/04/23 History Nitroglycerin Sl Tabs [Nitrostat] 0.4 mg SUBLINGUAL Q5M PRN 10/10/13 09/04/23 History traMADol HCL [Ultram] 50 mg PO Q6HR PRN 05/11/20 09/04/23 History metFORMIN HCL [Glucophage] 500 mg PO BID 08/07/20 09/04/23 History Atorvastatin [Lipitor] 80 mg PO HS 09/04/23 09/04/23 History Dulaglutide [Trulicity] 3 mg SQ WE 09/04/23 09/04/23 History Glimepiride [Amaryl] 1 mg PO [id number] 09/04/23 09/04/23 History Ibuprofen [Motrin] 800 mg PO TID 09/04/23 09/04/23 History Metoprolol Succinate [Toprol XL] 100 mg PO DAILY 09/04/23 09/04/23 History Spironolactone [Aldactone] 25 mg PO DAILY 09/04/23 09/04/23 History Allergies Allergy/AdvReac Type Severity Reaction Status Date / Time adhesive tape Allergy Rash/Hives Verified 09/04/23 10:31 banana Allergy THROAT Verified 09/04/23 10:31 FEELS SCRATCHY AND SWOLLEN codeine Allergy Itching Verified 09/04/23 10:31 diclofenac AdvReac joint & Verified 09/04/23 10:31 muscle pain, hands numb prochlorperazine edisylate AdvReac FEELING OF Verified 09/04/23 10:31 [From Compazine] BEING HOT AND IRRITABLE prochlorperazine maleate AdvReac FEELING OF Verified 09/04/23 10:31 [From Compazine] BEING HOT AND IRRITABLE muskmelon Allergy Severe THROAT Uncoded 09/04/23 10:31 FEELS SCRATCHY AND SWOLLEN Physical Exam Osteopathic Statement: *. No significant issues noted on an osteopathic structural exam other than those noted in the History and Physical/Consult. Vitals: Vital Signs Temp Pulse Pulse Resp BP BP Pulse Ox 09/04/23 12:32 97 09/04/23 09:07 98.1 F 89 16 125/87 96 09/04/23 06:16 92 18 105/73 96 09/04/23 04:48 97 09/04/23 04:40 99 16 128/93 90 L 09/04/23 00:00 98 16 98/53 99 09/03/23 21:51 98.1 F 101 H 18 117/84 94 L Intake and Output 09/03/23 09/04/23 09/04/23 22:59 06:59 14:59 Other: # Voids 1 Weight 90.718 kg 90.718 kg Results CBC & Chem 7: 09/03/23 22:08 09/03/23 22:08 Labs: Abnormal Lab Results - Last 24 Hours (Table) 09/03/23 09/03/23 09/03/23 Range/Units 22:08 22:08 22:08 WBC 18.0 H (3.8-10.6) k/uL RBC 4.18 L (4.30-5.90) m/uL Hct 38.7 L (39.0-53.0) % Neutrophils # 15.9 H (1.3-7.7) k/uL APTT 21.0 L (22.0-30.0) sec Chloride 111 H (98-107) mmol/L Carbon Dioxide 17 L (22-30) mmol/L BUN 22 H (9-20) mg/dL Glucose 177 H (74-99) mg/dL POC Glucose (mg/dL) (70-110) mg/dL Total Bilirubin 2.2 H (0.2-1.3) mg/dL Urine Protein (Negative) Urine Glucose (UA) (Negative) Urine Ketones (Negative) Urine Blood (Negative) Urine RBC (0-5) /hpf Urine Bacteria (None) /hpf Urine Mucus (None) /hpf 09/03/23 09/04/23 Range/Units 22:25 12:56 WBC (3.8-10.6) k/uL RBC (4.30-5.90) m/uL Hct (39.0-53.0) % Neutrophils # (1.3-7.7) k/uL APTT (22.0-30.0) sec Chloride (98-107) mmol/L Carbon Dioxide (22-30) mmol/L BUN (9-20) mg/dL Glucose (74-99) mg/dL POC Glucose (mg/dL) 180 H (70-110) mg/dL Total Bilirubin (0.2-1.3) mg/dL Urine Protein Trace H (Negative) Urine Glucose (UA) 3+ H (Negative) Urine Ketones 2+ H (Negative) Urine Blood Moderate H (Negative) Urine RBC 48 H (0-5) /hpf Urine Bacteria Rare H (None) /hpf Urine Mucus Few H (None) /hpf
--- NOTE | 2023-09-04 15:18 | P.GSCN ---
History of Present Illness Consult date: 09/04/23 History of present illness: CHIEF COMPLAINT: Abdominal pain HISTORY OF PRESENT ILLNESS: This is a 57-year-old male who presented with right- sided abdominal pain x 2 days. Patient reports the pain started 2 days ago around 3 AM. Pain radiated from the right flank to the right side of the abdomen and down into the groin. He did have nausea and vomiting last night. He initially thought he was constipated but did have a loose stool. His urinalysis did reveal hematuria. He denies any urinary symptoms. He does believe he had a prior history of a kidney stone. CT scan abdomen pelvis without contrast did reveal bilateral renal stones and diverticulosis. He has a past abdominal surgical history of diverticulitis with bowel resection and colostomy with colostomy reversal about 20 years ago and surgery was down close in general and had a history of umbilical hernia with mesh placement over 20 years ago. Patient has a cardiac history of coronary disease with cardiac stents ischemic cardiomyopathy with AICD. Last colonoscopy he reports was 2 years ago with no significant findings per patient. PAST MEDICAL HISTORY: Asthma, Coronary Artery Disease (CAD), Chest Pain / Angina, Diabetes Mellitus, Hyperlipidemia, Hypertension, Myocardial Infarction ([place]), Osteoarthritis (OA),Severe ischemic cardiomyopathy, chronic stable asthma, SOB W/ ACTIVITY, DJD, HX DIVERTICULITIS, aortic valve leaking per pt, diabetes mellitus PAST SURGICAL HISTORY: AICD, Bowel Resection, Heart Catheterization, Heart Catheterization With Stent, Hernia Repair, multiple cardiac cath's w/stents, [employer] AICD 2011. Colostomy with reversal, pain procedure MEDICATIONS: See below ALLERGIES: See below SOCIAL HISTORY: No illicit drug use. REVIEW OF SYSTEMS: CONSTITUTIONAL: Denies fever or chills. HEENT: Denies blurred vision, vision changes, or eye pain. Denies hemoptysis CARDIOVASCULAR: Denies chest pain or pressure. RESPIRATORY: No shortness of breath. GASTROINTESTINAL: See HPI for pertinent findings HEMATOLOGIC: Denies bleeding disorders. GENITOURINARY: Denies any blood in urine or increased urinary frequency. SKIN: Denies pruitis. Denies rash. PHYSICAL EXAM: VITAL SIGNS: Reviewed GENERAL: Well-developed in no acute distress. HEENT: No sclera icterus. Extraocular movements grossly intact. Moist buccal mucosa. Head is atraumatic, normocephalic. No nasal drainage. ABDOMEN: Soft. Nondistended. Tenderness with palpation to right lower quadrant and right groin NEUROLOGIC: Alert and oriented. Cranial nerves II through XII grossly intact. LABORATORY DATA: WBC 18 Hgb 13.2 platelets 258 Sodium is 138 potassium is 5.0 creatinine 1.06 Lactic acid 1.4 Total bili 2.2 AST 44 ALT 36 lipase 105 Urinalysis with moderate blood IMAGING: CT scan of pelvis reports partial resection of the transverse colon. Nonobstructing bilateral renal stones measuring up to 7 mm in the left lower pole. Diverticulosis without diverticulitis. No small bowel obstruction. No free intraperitoneal air. No findings to suggest acute appendicitis. ASSESSMENT: 1. Right-sided lower abdominal pain possibly related to kidney stones. Patient does have blood noted on urinalysis 2. Leukocytosis 3. Nonobstructing bilateral renal stones noted on CT 4. History of diverticulitis with bowel resection colostomy placement and colostomy reversal 5. History of umbilical hernia repair with abdominal mesh PLAN: -ok for regular diet -Continue supportive care -Continue pain management -Continue IV fluids -Repeat CBC in a.m. Physician Controls Technician note has been reviewed by physician. Signing provider agrees with the documented findings, assessment, and plan of care. Past Medical History Past Medical History: Asthma, Coronary Artery Disease (CAD), Chest Pain / Angina, Diabetes Mellitus, Hyperlipidemia, Hypertension, Myocardial Infarction ([place]), Osteoarthritis (OA) Additional Past Medical History / Comment(s): HX: Severe ischemic cardiomyopathy, chronic stable asthma, SOB W/ ACTIVITY, DJD, HX DIVERTICULITIS, aortic valve leaking per pt, Last Myocardial Infarction Date:: 11/10/16 History of Any Multi-Drug Resistant Organisms: MRSA Year Discovered:: 2010 MDRO Source:: AREAS TO NECK,BACK,AND ARMPIT Past Surgical History: AICD, Bowel Resection, Heart Catheterization, Heart Catheterization With Stent, Hernia Repair Additional Past Surgical History / Comment(s): multiple cardiac cath's w/stents, [employer] AICD 2011. Colostomy with reversal, pain procedure Past Anesthesia/Blood Transfusion Reactions: Postoperative Nausea & Vomiting (PONV) Additional Past Anesthesia/Blood Transfusion Reaction / Comm: Pt has never received blood. Date of Last Stent Placement:: 02/23/15 Type of Cardiac Device: AICD Device Placement Date:: 2011 Past Psychological History: No Psychological Hx Reported Additional Psychological History / Comment(s): Pt resides with his spouse. He is independent. He drives. Smoking Status: Never smoker Past Alcohol Use History: Rare Past Drug Use History: None Reported - Past Family History Father Family Medical History: Chest Pain / Angina, Coronary Artery Disease (CAD), Hypertension, Myocardial Infarction ([place]) Additional Family Medical History / Comment(s): CABG Mother Family Medical History: CVA/TIA Additional Family Medical History / Comment(s): right carotid endarterectomy, rheumatic fever Brother(s) Family Medical History: AICD/Pacemaker, Coronary Artery Disease (CAD), Hypertension Additional Family Medical History / Comment(s): CODED on treadmill at [facility] Office Medications and Allergies Home Medications Medication Instructions Recorded Confirmed Type Enalapril [Vasotec] 2.5 mg PO DAILY 10/10/13 09/04/23 History Nitroglycerin Sl Tabs [Nitrostat] 0.4 mg SUBLINGUAL Q5M PRN 10/10/13 09/04/23 History traMADol HCL [Ultram] 50 mg PO Q6HR PRN 05/11/20 09/04/23 History metFORMIN HCL [Glucophage] 500 mg PO BID 08/07/20 09/04/23 History Atorvastatin [Lipitor] 80 mg PO HS 09/04/23 09/04/23 History Dulaglutide [Trulicity] 3 mg SQ WE 09/04/23 09/04/23 History Glimepiride [Amaryl] 1 mg PO AC-BRKFST 09/04/23 09/04/23 History Ibuprofen [Motrin] 800 mg PO TID 09/04/23 09/04/23 History Metoprolol Succinate [Toprol XL] 100 mg PO DAILY 09/04/23 09/04/23 History Spironolactone [Aldactone] 25 mg PO DAILY 09/04/23 09/04/23 History Allergies Allergy/AdvReac Type Severity Reaction Status Date / Time adhesive tape Allergy Rash/Hives Verified 09/04/23 10:31 banana Allergy THROAT Verified 09/04/23 10:31 FEELS SCRATCHY AND SWOLLEN codeine Allergy Itching Verified 09/04/23 10:31 diclofenac AdvReac joint & Verified 09/04/23 10:31 muscle pain, hands numb prochlorperazine edisylate AdvReac FEELING OF Verified 09/04/23 10:31 [From Compazine] BEING HOT AND IRRITABLE prochlorperazine maleate AdvReac FEELING OF Verified 09/04/23 10:31 [From Compazine] BEING HOT AND IRRITABLE muskmelon Allergy Severe THROAT Uncoded 09/04/23 10:31 FEELS SCRATCHY AND SWOLLEN Surgical - Exam Vital Signs Temp Pulse Resp BP Pulse Ox 98.1 F 101 H 18 117/84 94 L 09/03/23 21:51 09/03/23 21:51 09/03/23 21:51 09/03/23 21:51 09/03/23 21:51 Results - Labs 09/03/23 22:08 09/03/23 22:08 Abnormal Lab Results - Last 24 Hours (Table) 09/03/23 09/03/23 09/03/23 Range/Units 22:08 22:08 22:08 WBC 18.0 H (3.8-10.6) k/uL RBC 4.18 L (4.30-5.90) m/uL Hct 38.7 L (39.0-53.0) % Neutrophils # 15.9 H (1.3-7.7) k/uL APTT 21.0 L (22.0-30.0) sec Chloride 111 H (98-107) mmol/L Carbon Dioxide 17 L (22-30) mmol/L BUN 22 H (9-20) mg/dL Glucose 177 H (74-99) mg/dL Total Bilirubin 2.2 H (0.2-1.3) mg/dL Urine Protein (Negative) Urine Glucose (UA) (Negative) Urine Ketones (Negative) Urine Blood (Negative) Urine RBC (0-5) /hpf Urine Bacteria (None) /hpf Urine Mucus (None) /hpf 09/03/23 Range/Units 22:25 WBC (3.8-10.6) k/uL RBC (4.30-5.90) m/uL Hct (39.0-53.0) % Neutrophils # (1.3-7.7) k/uL APTT (22.0-30.0) sec Chloride (98-107) mmol/L Carbon Dioxide (22-30) mmol/L BUN (9-20) mg/dL Glucose (74-99) mg/dL Total Bilirubin (0.2-1.3) mg/dL Urine Protein Trace H (Negative) Urine Glucose (UA) 3+ H (Negative) Urine Ketones 2+ H (Negative) Urine Blood Moderate H (Negative) Urine RBC 48 H (0-5) /hpf Urine Bacteria Rare H (None) /hpf Urine Mucus Few H (None) /hpf Diabetes panel 09/03/23 Range/Units 22:08 Sodium 138 (137-145) mmol/L Potassium 5.0 (3.5-5.1) mmol/L Chloride 111 H (98-107) mmol/L Carbon Dioxide 17 L (22-30) mmol/L BUN 22 H (9-20) mg/dL Creatinine 1.06 (0.66-1.25) mg/dL Glucose 177 H (74-99) mg/dL Calcium 9.1 (8.4-10.2) mg/dL AST 44 (17-59) U/L ALT 36 (4-49) U/L Alkaline Phosphatase 78 (38-126) U/L Total Protein 6.8 (6.3-8.2) g/dL Albumin 4.0 (3.5-5.0) g/dL Calcium panel 09/03/23 Range/Units 22:08 Calcium 9.1 (8.4-10.2) mg/dL Albumin 4.0 (3.5-5.0) g/dL Pituitary panel 09/03/23 Range/Units 22:08 Sodium 138 (137-145) mmol/L Potassium 5.0 (3.5-5.1) mmol/L Chloride 111 H (98-107) mmol/L Carbon Dioxide 17 L (22-30) mmol/L BUN 22 H (9-20) mg/dL Creatinine 1.06 (0.66-1.25) mg/dL Glucose 177 H (74-99) mg/dL Calcium 9.1 (8.4-10.2) mg/dL Adrenal panel 09/03/23 Range/Units 22:08 Sodium 138 (137-145) mmol/L Potassium 5.0 (3.5-5.1) mmol/L Chloride 111 H (98-107) mmol/L Carbon Dioxide 17 L (22-30) mmol/L BUN 22 H (9-20) mg/dL Creatinine 1.06 (0.66-1.25) mg/dL Glucose 177 H (74-99) mg/dL Calcium 9.1 (8.4-10.2) mg/dL Total Bilirubin 2.2 H (0.2-1.3) mg/dL AST 44 (17-59) U/L ALT 36 (4-49) U/L Alkaline Phosphatase 78 (38-126) U/L Total Protein 6.8 (6.3-8.2) g/dL Albumin 4.0 (3.5-5.0) g/dL
[2023-09-04 17:28] LABS: Glucose,Whole Blood 117 mg/dL (70-110)
[2023-09-04] MEDS: INSULIN ASPART (NovoLOG) 100 UNIT/ML VIAL SQ SCH (17:44)
[2023-09-04 21:02] LABS: Glucose,Whole Blood 147 mg/dL (70-110)
[2023-09-04] MEDS: ATORVASTATIN 80 MG TAB PO SCH (21:27)
[2023-09-05 06:24] LABS: Glucose,Whole Blood 105 mg/dL (70-110)
[2023-09-05] MEDS: METOPROLOL SUCCINATE (ER) 100 MG TAB.ER.24H PO SCH (08:32)
[2023-09-05] MEDS: lisinopriL 5 MG TAB PO SCH (08:32)
[2023-09-05 11:46] LABS: Basophils # (A) 0.05 X 10*3/uL (0.00-0.10); Basophils % (A) 0.6 %; Eosinophils # (A) 0.34 X 10*3/uL (0.04-0.35); Eosinophils % (A) 4.2 %; HCT 34.2 % (39.6-50.0); HGB 11.1 g/dL (13.0-17.0); Lymphocytes # (A) 1.36 X 10*3/uL (0.90-5.00); Lymphocytes % (A) 16.9 %; MCH 30.8 pg (27.0-32.0); MCHC 32.5 g/dL (32.0-37.0); Mean Platelet Volume 10.4 FL (9.5-12.2); Monocytes # (A) 0.73 X 10*3/uL (0.20-1.00); NRBC Per 100 WBC 0 X 10*3/uL (0.00-0.01); Neutrophils # (A) 5.56 X 10*3/uL (1.80-7.70); Neutrophils % (A) 68.9 %; Platelet Count 185 X 10*3/uL (140-440); RDW 13.2 % (11.5-14.5); WBC 8.07 X 10*3/uL (4.50-10.00)
[2023-09-05 11:57] LABS: ALT 23 U/L (10-49); AST 41 U/L (14-35); Albumin 3.6 g/dL (3.8-4.9); Alkaline Phosphatase 63 U/L (41-126); Blood Urea Nitrogen 16.7 mg/dL (9.0-27.0); Calcium 8.3 mg/dL (8.7-10.3); Carbon Dioxide 22.3 mmol/L (21.6-31.8); Chloride 109 mmol/L (96-109); Globulin 1.8 g/dL (1.6-3.3); Glucose 101 mg/dL (70-110); Potassium 4.3 mmol/L (3.5-5.5); Sodium 141 mmol/L (135-145); Total Bilirubin 1.7 mg/dL (0.3-1.2); Total Protein 5.4 g/dL (6.2-8.2)
[2023-09-05 12:25] LABS: Glucose,Whole Blood 157 mg/dL (70-110)
[2023-09-05] MEDS: ENOXAPARIN 40 MG/0.4 ML SYRINGE SQ SCH (12:45)
--- NOTE | 2023-09-05 12:58 | US ---
EXAMINATION TYPE: US gallbladder DATE OF EXAM: 09/05/2023 COMPARISON: Correlation CT 09/04/2023 CLINICAL INDICATION: Male, 57 years old with history of pain; Right sided pain and nausea TECHNIQUE: Multiple sonographic images of the right upper quadrant are obtained. FINDINGS: EXAM MEASUREMENTS: Liver Length: 16.4 cm Gallbladder Wall: 0.2 cm CBD: 0.4 cm Right Kidney: 10.8 x 5.6 x 6.4 cm Pancreas: Only portions of the pancreatic head and body are seen. Most of the body and tail is obscu red by bowel gas shadowing. Liver: wnl Gallbladder: 1.1cm non shadowing stone versus other etiology. No abnormal distention, wall thickenin g, or surrounding fluid. Evidence for sonographic Walton's sign: no CBD: wnl Right Kidney: 9 mm echogenic focus at the mid pole. Superior pole cyst = 4.3 x 4.0 x 3.7cm. No hydro nephrosis. IMPRESSION: 1. Either a 1.1 cm nonshadowing stone versus gallbladder wall polyp near the neck of the gallbladder. The former is favored. 3 month follow-up ultrasound to reassess. 2. No ancillary findings of acute cholecystitis. No biliary ductal dilatation. 3. 9 mm nonobstructive right renal calculus.
--- NOTE | 2023-09-05 15:14 | P.GSCN ---
History of Present Illness Consult date: 09/05/23 Reason for Consult: Right ureteral stone History of present illness: This is a 57-year-old male that presented to the hospital with right-sided abdominal pain that radiates to the flank and the right growing, pain is sudden onset. Pain is associated with nausea but denies any vomiting. He denies any gross hematuria or dysuria. In the ER he underwent a CT abdomen pelvis which showed evidence of bilateral nonobstructing stone, but on review of images there is also evidence of a 4 mm right-sided distal stone. No previous history of kidney stones. No previous urological history. No known family history of kidney stones. This afternoon on evaluation he indicated the pain has improved but he is still having some pain along the right flank and groin Review of Systems - Constitutional Denies fever, Denies weight loss - EENT Ears, nose, mouth and throat: Denies dysphagia - Cardiovascular Denies chest pain, Denies shortness of breath - Respiratory Denies cough, Denies 7 - Gastrointestinal Reports abdominal pain, Reports nausea, Denies vomiting - Genitourinary Reports flank pain, Denies hematuria - Neurological Denies headaches, Denies syncope Past Medical History Past Medical History: Asthma, Coronary Artery Disease (CAD), Chest Pain / Angina, Diabetes Mellitus, Hyperlipidemia, Hypertension, Myocardial Infarction ([place]), Osteoarthritis (OA) Additional Past Medical History / Comment(s): HX: Severe ischemic cardiomyopathy, chronic stable asthma, SOB W/ ACTIVITY, DJD, HX DIVERTICULITIS, aortic valve leaking per pt, Last Myocardial Infarction Date:: 11/10/16 History of Any Multi-Drug Resistant Organisms: MRSA Year Discovered:: 2010 MDRO Source:: AREAS TO NECK,BACK,AND ARMPIT Past Surgical History: AICD, Bowel Resection, Heart Catheterization, Heart Catheterization With Stent, Hernia Repair Additional Past Surgical History / Comment(s): multiple cardiac cath's w/stents, [employer] AICD 2011. Colostomy with reversal, pain procedure Past Anesthesia/Blood Transfusion Reactions: Postoperative Nausea & Vomiting (PONV) Additional Past Anesthesia/Blood Transfusion Reaction / Comm: Pt has never received blood. Date of Last Stent Placement:: 02/23/15 Type of Cardiac Device: AICD Device Placement Date:: 2011 Past Psychological History: No Psychological Hx Reported Additional Psychological History / Comment(s): Pt resides with his spouse. He is independent. He drives. Smoking Status: Never smoker Past Alcohol Use History: Rare Past Drug Use History: None Reported - Past Family History Father Family Medical History: Chest Pain / Angina, Coronary Artery Disease (CAD), Hypertension, Myocardial Infarction ([place]) Additional Family Medical History / Comment(s): CABG Mother Family Medical History: CVA/TIA Additional Family Medical History / Comment(s): right carotid endarterectomy, rheumatic fever Brother(s) Family Medical History: AICD/Pacemaker, Coronary Artery Disease (CAD), Hypertension Additional Family Medical History / Comment(s): CODED on treadmill at [facility] Office Medications and Allergies Home Medications Medication Instructions Recorded Confirmed Type Enalapril [Vasotec] 2.5 mg PO DAILY 10/10/13 09/04/23 History Nitroglycerin Sl Tabs [Nitrostat] 0.4 mg SUBLINGUAL Q5M PRN 10/10/13 09/04/23 History traMADol HCL [Ultram] 50 mg PO Q6HR PRN 05/11/20 09/04/23 History metFORMIN HCL [Glucophage] 500 mg PO BID 08/07/20 09/04/23 History Atorvastatin [Lipitor] 80 mg PO HS 09/04/23 09/04/23 History Dulaglutide [Trulicity] 3 mg SQ WE 09/04/23 09/04/23 History Glimepiride [Amaryl] 1 mg PO AC-BRKFST 09/04/23 09/04/23 History Ibuprofen [Motrin] 800 mg PO TID 09/04/23 09/04/23 History Metoprolol Succinate [Toprol XL] 100 mg PO DAILY 09/04/23 09/04/23 History Spironolactone [Aldactone] 25 mg PO DAILY 09/04/23 09/04/23 History Allergies Allergy/AdvReac Type Severity Reaction Status Date / Time adhesive tape Allergy Rash/Hives Verified 09/04/23 10:31 banana Allergy THROAT Verified 09/04/23 10:31 FEELS SCRATCHY AND SWOLLEN codeine Allergy Itching Verified 09/04/23 10:31 diclofenac AdvReac joint & Verified 09/04/23 10:31 muscle pain, hands numb prochlorperazine edisylate AdvReac FEELING OF Verified 09/04/23 10:31 [From Compazine] BEING HOT AND IRRITABLE prochlorperazine maleate AdvReac FEELING OF Verified 09/04/23 10:31 [From Compazine] BEING HOT AND IRRITABLE muskmelon Allergy Severe THROAT Uncoded 09/04/23 10:31 FEELS SCRATCHY AND SWOLLEN Surgical - Exam Vital Signs Temp Pulse Resp BP Pulse Ox 98.1 F 101 H 18 117/84 94 L 09/03/23 21:51 09/03/23 21:51 09/03/23 21:51 09/03/23 21:51 09/03/23 21:51 - General no distress, moderate pain - Eyes normal ocular movement, no pale - ENT normal nares, normal mucosa - Respiratory normal expansion, normal respiratory effort - Abdomen Abdomen: soft, non tender, no distended - Psychiatric oriented to time, oriented to person, oriented to place Results - Labs 09/05/23 06:15 09/05/23 06:15 Abnormal Lab Results - Last 24 Hours (Table) 09/04/23 09/04/23 09/05/23 Range/Units 17:27 21:02 06:15 RBC (4.40-5.60) X 10*6/uL Hgb (13.0-17.0) g/dL Hct (39.6-50.0) % POC Glucose (mg/dL) 117 H 147 H (70-110) mg/dL Hemoglobin A1c 7.3 H (<=6.0) % Calcium (8.7-10.3) mg/dL Total Bilirubin (0.3-1.2) mg/dL AST (14-35) U/L Total Protein (6.2-8.2) g/dL Albumin (3.8-4.9) g/dL 09/05/23 09/05/23 09/05/23 Range/Units 06:15 06:15 12:23 RBC 3.60 L (4.40-5.60) X 10*6/uL Hgb 11.1 L (13.0-17.0) g/dL Hct 34.2 L (39.6-50.0) % POC Glucose (mg/dL) 157 H (70-110) mg/dL Hemoglobin A1c (<=6.0) % Calcium 8.3 L (8.7-10.3) mg/dL Total Bilirubin 1.7 H (0.3-1.2) mg/dL AST 41 H (14-35) U/L Total Protein 5.4 L (6.2-8.2) g/dL Albumin 3.6 L (3.8-4.9) g/dL Diabetes panel 09/05/23 09/05/23 Range/Units 06:15 06:15 Sodium 141 (135-145) mmol/L Potassium 4.3 (3.5-5.5) mmol/L Chloride 109 (96-109) mmol/L Carbon Dioxide 22.3 (21.6-31.8) mmol/L BUN 16.7 (9.0-27.0) mg/dL Creatinine 1.0 (0.6-1.5) mg/dL Glucose 101 (70-110) mg/dL Hemoglobin A1c 7.3 H (<=6.0) % Calcium 8.3 L (8.7-10.3) mg/dL AST 41 H (14-35) U/L ALT 23 (10-49) U/L Alkaline Phosphatase 63 (41-126) U/L Total Protein 5.4 L (6.2-8.2) g/dL Albumin 3.6 L (3.8-4.9) g/dL Calcium panel 09/05/23 Range/Units 06:15 Calcium 8.3 L (8.7-10.3) mg/dL Albumin 3.6 L (3.8-4.9) g/dL Pituitary panel 09/05/23 Range/Units 06:15 Sodium 141 (135-145) mmol/L Potassium 4.3 (3.5-5.5) mmol/L Chloride 109 (96-109) mmol/L Carbon Dioxide 22.3 (21.6-31.8) mmol/L BUN 16.7 (9.0-27.0) mg/dL Creatinine 1.0 (0.6-1.5) mg/dL Glucose 101 (70-110) mg/dL Calcium 8.3 L (8.7-10.3) mg/dL Adrenal panel 09/05/23 Range/Units 06:15 Sodium 141 (135-145) mmol/L Potassium 4.3 (3.5-5.5) mmol/L Chloride 109 (96-109) mmol/L Carbon Dioxide 22.3 (21.6-31.8) mmol/L BUN 16.7 (9.0-27.0) mg/dL Creatinine 1.0 (0.6-1.5) mg/dL Glucose 101 (70-110) mg/dL Calcium 8.3 L (8.7-10.3) mg/dL Total Bilirubin 1.7 H (0.3-1.2) mg/dL AST 41 H (14-35) U/L ALT 23 (10-49) U/L Alkaline Phosphatase 63 (41-126) U/L Total Protein 5.4 L (6.2-8.2) g/dL Albumin 3.6 L (3.8-4.9) g/dL - Imaging CT scan - abdomen: image reviewed (4 mm right-sided distal stone with minimal hydronephrosis) Assessment and Plan Assessment: This is a 57-year-old male admitted to the hospital with right-sided flank pain, I reviewed the CT there is evidence of a 4 mm right-sided distal ureteral stone, discussed with him his pain is most likely secondary to that. Discussed with him the stone is fairly small and high potential of spontaneous passage. Discussed with him medical expulsive is preferred. Discussed potential of passing the stones (80 to 90%. Discussed if he continues to have intractable pain then we can proceed with right-sided ureteroscopy with holmium laser to address the stone -strain urine -NPO past MN, will reassess tomorrow
--- NOTE | 2023-09-05 16:20 | P.PN ---
Subjective Progress Note Date: 09/05/23 CHIEF COMPLAINT: Abdominal pain HISTORY OF PRESENT ILLNESS: Patient continues to have right flank pain that radiates into the right groin. He reports the pain is slightly less. But he did have severe pain yesterday with vomiting last night. Patient reports that he is tolerating diet. He reports his urine has small black pieces noted. Gallbladder ultrasound reported either a 1.1 cm nonshadowing stone versus gallbladder wall polyp near the neck of the gallbladder. No findings of acute cholecystitis. No biliary ductal dilatation. 9 mm nonobstructive right renal calculus. Afebrile. WBC 8.07 total bilirubin 1.7 AST 41 ALT 23 alk phos 63 PHYSICAL EXAM: VITAL SIGNS: Reviewed. GENERAL: Well-developed in no acute distress. ABDOMEN: Soft. Nondistended. Right flank tenderness NEUROLOGIC: Alert and oriented. Cranial nerves II through XII grossly intact. ASSESSMENT: 1. Abdominal pain likely due to kidney stone 2. Ultrasound reporting 1.1 cm nonshadowing stone versus gallbladder wall polyp near the neck of the gallbladder. Reporting no findings of acute cholecystitis PLAN: -Continue urology workup -Strain urine -Mildly elevated AST and total bilirubin. Repeat labs in a.m. -Continue to monitor Physician Central Supply Nurse note has been reviewed by physician. Signing provider agrees with the documented findings, assessment, and plan of care. Objective - Vital Signs Vital signs: Vital Signs Temp 98.2 F 09/05/23 15:00 Pulse 101 H 09/05/23 15:00 Resp 18 09/05/23 15:00 BP 100/63 09/05/23 15:00 Pulse Ox 93 L 09/05/23 15:00 FiO2 Intake & Output 09/04/23 09/05/23 09/05/23 18:59 06:59 18:59 Intake Total 358 Balance 358 Weight 90.718 kg Intake: Oral 358 Other: # Voids 1 2 1 - Labs CBC & Chem 7: 09/05/23 06:15 09/05/23 06:15 Labs: Abnormal Lab Results - Last 24 Hours (Table) 09/04/23 09/04/23 09/05/23 Range/Units 17:27 21:02 06:15 RBC (4.40-5.60) X 10*6/uL Hgb (13.0-17.0) g/dL Hct (39.6-50.0) % POC Glucose (mg/dL) 117 H 147 H (70-110) mg/dL Hemoglobin A1c 7.3 H (<=6.0) % Calcium (8.7-10.3) mg/dL Total Bilirubin (0.3-1.2) mg/dL AST (14-35) U/L Total Protein (6.2-8.2) g/dL Albumin (3.8-4.9) g/dL 09/05/23 09/05/23 09/05/23 Range/Units 06:15 06:15 12:23 RBC 3.60 L (4.40-5.60) X 10*6/uL Hgb 11.1 L (13.0-17.0) g/dL Hct 34.2 L (39.6-50.0) % POC Glucose (mg/dL) 157 H (70-110) mg/dL Hemoglobin A1c (<=6.0) % Calcium 8.3 L (8.7-10.3) mg/dL Total Bilirubin 1.7 H (0.3-1.2) mg/dL AST 41 H (14-35) U/L Total Protein 5.4 L (6.2-8.2) g/dL Albumin 3.6 L (3.8-4.9) g/dL
--- NOTE | 2023-09-05 17:06 | P.PN ---
Subjective Progress Note Date: 09/05/23 (delayed charting seen at 1045) Patient is a 57-year-old male with diabetes mellitus, hypertension, hyperlipidemia, chronic systolic heart failure status post ICD, coronary disease status post multiple stents who presented to the ED with right flank pain. IN the ER he underwent extensive evaluation. Laboratory analysis was remarkable for WBC was 18.0, Total bilirubin 2.2, Urine showed 2+ ketones and moderate blood. His CT abdomen pelvis showed nonobstructing bilateral renal stones measuring up to 7 mm in the left lower lobe. For intractable abdominal pain. He was started on a clear liquid diet, normal saline, and IV narcotic medications for pain. General surgery and urology were consulted. Patient seen and examined at bedside. Continues to have significant right lower abdominal pain that radiates into his groin. He states this started after being active on his boat. He denies any chest pain or shortness of breath. Continues to have some nausea without vomiting. No other complaints currently. Vital signs reviewed General: Nontoxic, no distress, appears at stated age Cardiovascular: S1S2 reg, no murmur Lungs: CTA bilateral, no rhonchi, no rales, no accessory muscle use Abdominal: Soft, nontender to palpation, no guarding Ext: No gross muscle atrophy, no edema b/l lower extremities, no contractures Neuro: CN II-XI grossly intact, no focal neuro deficits Psych: Alert, oriented, appropriate affect Assessment/Plan: Intractable abdominal pain due to 4 mm right sided ureteric stone Microscopic hematuria -Urology consult reviewed: Likely will pass spontaneously but if continues to have intractable pain could consider right sided ureteroscope, strain urine, n.p.o. past midnight - Dilaudid 0.5 mg every 3 hours as needed for pain -normal saline 75 cc an hour - consistent carb diet Mildly elevated bilirubin - Gallbladder US ordered and reviewed nonobstructing 1.1 cm stone versus. 3- month follow-up recommended -Surgical recs: Continue to monitor Hypertension Chronic heart failure with reduced ejection fraction status post ICD, EF 30-35% Coronary disease status post stents Hyperlipidemia -Continue with 5 mg daily, metoprolol succinate 100 mg daily, - hold off on spironolactone conitnue with normal saline 75 ml/hr - Continue to monitor volume status while on gentle fluids - Lipitor 80 mg daily Diabetes mellitus - Hold metformin, glimepride - Sliding scale insulin - A1C 7.3 Leukocytosis, resolved Imaging: As above Data Review: Today include CBC, CMP, A1c which are remarkable for hemoglobin 11.1, bilirubin 1.5 then down from 2.2, and AST of 71 DVT prophylaxis: Lovenox Anticipated discharge date: Pending Clinical Course Anticipated discharge place: Pending Clinical Course This dictation was prepared using [employer] voice recognition software. Though every attempt is made to correct errors during dictation some may still exist. Objective - Vital Signs Vital signs: Vital Signs Temp 98.2 F 09/05/23 15:00 Pulse 101 H 09/05/23 15:00 Resp 18 09/05/23 15:00 BP 100/63 09/05/23 15:00 Pulse Ox 93 L 09/05/23 15:00 FiO2 Intake & Output 09/04/23 09/05/23 09/05/23 18:59 06:59 18:59 Intake Total 358 Balance 358 Weight 90.718 kg Intake: Oral 358 Other: # Voids 1 2 1 - Labs CBC & Chem 7: 09/05/23 06:15 09/05/23 06:15 Labs: Abnormal Lab Results - Last 24 Hours (Table) 09/04/23 09/04/23 09/05/23 Range/Units 17:27 21:02 06:15 RBC (4.40-5.60) X 10*6/uL Hgb (13.0-17.0) g/dL Hct (39.6-50.0) % POC Glucose (mg/dL) 117 H 147 H (70-110) mg/dL Hemoglobin A1c 7.3 H (<=6.0) % Calcium (8.7-10.3) mg/dL Total Bilirubin (0.3-1.2) mg/dL AST (14-35) U/L Total Protein (6.2-8.2) g/dL Albumin (3.8-4.9) g/dL 09/05/23 09/05/23 09/05/23 Range/Units 06:15 06:15 12:23 RBC 3.60 L (4.40-5.60) X 10*6/uL Hgb 11.1 L (13.0-17.0) g/dL Hct 34.2 L (39.6-50.0) % POC Glucose (mg/dL) 157 H (70-110) mg/dL Hemoglobin A1c (<=6.0) % Calcium 8.3 L (8.7-10.3) mg/dL Total Bilirubin 1.7 H (0.3-1.2) mg/dL AST 41 H (14-35) U/L Total Protein 5.4 L (6.2-8.2) g/dL Albumin 3.6 L (3.8-4.9) g/dL
[2023-09-05 17:34] LABS: Glucose,Whole Blood 159 mg/dL (70-110)
[2023-09-05] MEDS: TAMSULOSIN 0.4 MG CAP.ER.24H PO SCH (17:45)
[2023-09-05 19:57] LABS: Glucose,Whole Blood 157 mg/dL (70-110)
[2023-09-06 06:37] LABS: Glucose,Whole Blood 147 mg/dL (70-110)
[2023-09-06 07:07] LABS: Basophils # (A) 0.1 k/uL (0-0.2); Basophils % (A) 1 %; Eosinophils # (A) 0.5 k/uL (0-0.7); Eosinophils % (A) 6 %; HCT 34.1 % (39.0-53.0); HGB 11.2 gm/dL (13.0-17.5); Lymphocytes % (A) 13 %; MCH 31.5 pg (25.0-35.0); MCHC 32.9 g/dL (31.0-37.0); MCV 95.7 fL (80.0-100.0); Mean Platelet Volume 8.2; Monocytes # (A) 0.5 k/uL (0-1.0); Monocytes % (A) 7 %; Neutrophils # (A) 5.8 k/uL (1.3-7.7); Neutrophils % (A) 73 %; Platelet Count 207 k/uL (150-450); RBC 3.56 m/uL (4.30-5.90); WBC 7.9 k/uL (3.8-10.6)
[2023-09-06 07:32] LABS: ALT 28 U/L (4-49); AST 33 U/L (17-59); African American GFR (CKD) >90 (>60 ml/min/1.73 sqM); Albumin/Globulin Ratio 1.3; Alkaline Phosphatase 62 U/L (38-126); Anion Gap 7 mmol/L; Blood Urea Nitrogen 19 mg/dL (9-20); Calcium 8.2 mg/dL (8.4-10.2); Carbon Dioxide 23 mmol/L (22-30); Chloride 110 mmol/L (98-107); Globulin 2.3 g/dL; Glucose 139 mg/dL (74-99); Non-African American GFR(CKD) >90 (>60 ml/min/1.73 sqM); Potassium 4.4 mmol/L (3.5-5.1); Sodium 140 mmol/L (137-145); Total Bilirubin 2.3 mg/dL (0.2-1.3); Total Protein 5.3 g/dL (6.3-8.2)
[2023-09-06] MEDS: ASPIRIN 81 MG PO SCH (09:14)
[2023-09-06] MEDS: ASPIRIN 325 MG TAB PO STA ×2 (09:14→11:20)
--- NOTE | 2023-09-06 09:28 | P.PN ---
Subjective Progress Note Date: 09/06/23 A shunt is in the hospital with abdominal pain due to a ureteral calculus. He is feeling better today. He was seen by yesterday. Objective - Vital Signs Vital signs: Vital Signs Temp 98.7 F 09/06/23 07:00 Pulse 94 09/06/23 07:00 Resp 16 09/06/23 07:00 BP 117/78 09/06/23 07:00 Pulse Ox 96 09/06/23 07:00 FiO2 Intake & Output 09/05/23 09/06/23 09/06/23 18:59 06:59 18:59 Intake Total 598 Balance 598 Intake: Oral 598 Other: Voiding Method Toilet # Voids 1 2 - Labs CBC & Chem 7: 09/06/23 06:12 09/06/23 06:12 Labs: Abnormal Lab Results - Last 24 Hours (Table) 09/05/23 09/05/23 09/05/23 Range/Units 06:15 06:15 06:15 RBC 3.60 L (4.40-5.60) X 10*6/uL Hgb 11.1 L (13.0-17.0) g/dL Hct 34.2 L (39.6-50.0) % Chloride (98-107) mmol/L Glucose (74-99) mg/dL POC Glucose (mg/dL) (70-110) mg/dL Hemoglobin A1c 7.3 H (<=6.0) % Calcium 8.3 L (8.7-10.3) mg/dL Total Bilirubin 1.7 H (0.3-1.2) mg/dL AST 41 H (14-35) U/L Total Protein 5.4 L (6.2-8.2) g/dL Albumin 3.6 L (3.8-4.9) g/dL 09/05/23 09/05/23 09/05/23 Range/Units 12:23 17:33 19:56 RBC (4.40-5.60) X 10*6/uL Hgb (13.0-17.0) g/dL Hct (39.6-50.0) % Chloride (98-107) mmol/L Glucose (74-99) mg/dL POC Glucose (mg/dL) 157 H 159 H 157 H (70-110) mg/dL Hemoglobin A1c (<=6.0) % Calcium (8.7-10.3) mg/dL Total Bilirubin (0.3-1.2) mg/dL AST (14-35) U/L Total Protein (6.2-8.2) g/dL Albumin (3.8-4.9) g/dL 09/06/23 09/06/23 09/06/23 Range/Units 06:12 06:12 06:35 RBC 3.56 L (4.40-5.60) X 10*6/uL Hgb 11.2 L (13.0-17.0) g/dL Hct 34.1 L (39.6-50.0) % Chloride 110 H (98-107) mmol/L Glucose 139 H (74-99) mg/dL POC Glucose (mg/dL) 147 H (70-110) mg/dL Hemoglobin A1c (<=6.0) % Calcium 8.2 L (8.7-10.3) mg/dL Total Bilirubin 2.3 H (0.3-1.2) mg/dL AST (14-35) U/L Total Protein 5.3 L (6.2-8.2) g/dL Albumin 3.0 L (3.8-4.9) g/dL Assessment and Plan Assessment: Impression/Recommendations: The patient has a right ureteral calculus. At present he is relatively asymptomatic. From urologic standpoint he wishes to try to pass this. He also has cardiac issues that need to be addressed including shortness of breath. In that light I do not wish to proceed with an anesthetic. He'll continue to try to pass this. We will follow.
[2023-09-06] MEDS ORDERED: HEPARIN SODIUM 1,000 UN/ML (10ML VL) IV PRN (10:29)
[2023-09-06] MEDS ORDERED: ALPRAZolam 0.25 MG TAB PO PRN (10:50)
[2023-09-06] MEDS ORDERED: NITROGLYCERIN SL TABS 0.4 MG TAB SUBLINGUAL PRN (10:50)
[2023-09-06] MEDS ORDERED: ALPRAZolam 0.5 MG TAB PO PRN (10:50)
[2023-09-06] MEDS: ATORVASTATIN 80 MG TAB PO STA (11:20)
--- NOTE | 2023-09-06 11:40 | P.CRDCN ---
History of Present Illness History of present illness: HISTORY OF PRESENT ILLNESS: This is a 57-year-old male with a past medical history significant for coronary artery disease with previous stenting, ischemic cardiomyopathy, AICD implantati on, hypertension, hyperlipidemia, valvular heart disease, bicuspid aortic valve with aortic stenosis and regurgitation, and diabetes. Patient follows in the office with Dr. Yañez. We have been asked to see the patient in consultation for chest pain. Patient examined at the bedside. Patient initially presented to the hospital with right sided abdominal pain. Patient was found to have right ureteral calculus. Patient is being followed by urology. Patient is requesting to attempt to pass the stone on his own. The patient developed discomfort this morning in between his shoulder blades which he states feels similar to when he required stenting in the past and cardiology was consulted for evaluation. EKG revealed sinus mechanism with no signs of acute ischemia. Troponin was drawn and resulted at 1.23. DIAGNOSTICS: - EKG reveals sinus mechanism with TWI laterally - Laboratory data: WBC 7.9. Hemoglobin 11.2. Platelet count 207. Sodium 140. Potassium 4.4. BUN 19. Creatinine 0.84. Troponin 1.230. - Current home cardiac medications include Lipitor 80 mg at night, metoprolol succinate 100 mg daily, Aldactone 25 mg daily, enalapril 2.5 mg daily. - Most recent echocardiogram obtained in February 2023 revealing EF 35%, severe , mild to moderate MR, moderate AR - Cardiac catheterization history: May 2020 revealing patent stent in the mid RCA. Intermediate disease involving the PLV branch of the RCA. Normal left main coronary artery. 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 Intermediate to severe lesion involving the mid LAD. Me dical management was recommended. REVIEW OF SYSTEMS: At the time of my exam: CONSTITUTIONAL: Denies fever or chills. HEENT: Denies blurred vision, vision changes, or eye pain. Denies hemoptysis CARDIOVASCULAR: Denies chest pain. Denies orthopnea. Denies PND. Denies palpitations RESPIRATORY: Denies shortness of breath. GASTROINTESTINAL: Denies abdominal pain. Denies nausea or vomiting. HEMATOLOGIC: Denies bleeding disorders. GENITOURINARY: Denies any blood in urine. SKIN: Denies pruitis. Denies rash. PHYSICAL EXAM: VITAL SIGNS: Reviewed. GENERAL: Well-developed in no acute distress. HEENT: Head is normocephalic. Pupils are equal, round. Sclerae anicteric. Mucous membranes of the mouth are moist. Neck supple. No JVD or thyromegaly LUNGS: Respirations even and unlabored. Lungs essentially clear to auscultation bilaterally. HEART: Regular rate and rhythm. S1 and S2 heard. Systolic murmur noted. ABDOMEN: Soft. Nondistended. Nontender. EXTREMITIES: Normal range of motion. No clubbing or cyanosis. Peripheral pulses intact. No lower extremity edema NEUROLOGIC: Awake and alert. Oriented x 3. ASSESSMENT: Abdominal pain Right-sided ureteral calculus Non-STEMI Coronary artery disease with previous stenting Ischemic cardiomyopathy History of AICD implantation Hypertension Hyperlipidemia Valvular heart disease including bicuspid aortic valve with severe , moderate AR, and mild to moderate MR Diabetes PLAN: Continue home cardiac medications Begin IV heparin Add Nitropaste Patient to undergo cardiac catheterization today with Dr. Yañez Further recommendations pending patient course Nurse practitioner note has been reviewed by physician. Signing provider agrees with the documented findings, assessment, and plan of care documented by [employer] as a scribe. Past Medical History Past Medical History: Asthma, Coronary Artery Disease (CAD), Chest Pain / Angina, Diabetes Mellitus, Hyperlipidemia, Hypertension, Myocardial Infarction ( NM), Osteoarthritis (OA) Additional Past Medical History / Comment(s): HX: Severe ischemic cardiomyopathy, chronic stable asthma, SOB W/ ACTIVITY, DJD, HX DIVERTICULITIS, aortic valve leaking per pt, Last Myocardial Infarction Date:: 11/10/16 History of Any Multi-Drug Resistant Organisms: MRSA Date of last positivie culture/infection: 2010 MDRO Source:: AREAS TO NECK,BACK,AND ARMPIT Past Surgical History: AICD, Bowel Resection, Heart Catheterization, Heart Catheterization With Stent, Hernia Repair Additional Past Surgical History / Comment(s): multiple cardiac cath's w/stents, [employer] AICD 2011. Colostomy with reversal, pain procedure Past Anesthesia/Blood Transfusion Reactions: Postoperative Nausea & Vomiting (PONV) Additional Past Anesthesia/Blood Transfusion Reaction / Comment(s): Pt has never received blood. Date of Last Stent Placement:: 02/23/15 Type of Cardiac Device: AICD Device Placement Date:: 2011 Past Psychological History: No Psychological Hx Reported Additional Psychological History / Comment(s): Pt resides with his spouse. He is independent. He drives. Smoking Status: Never smoker Past Alcohol Use History: Rare Past Drug Use History: None Reported - Past Family History Father Family Medical History: Chest Pain / Angina, Coronary Artery Disease (CAD), Hypertension, Myocardial Infarction (NM) Additional Family Medical History / Comment(s): CABG Mother Family Medical History: CVA/TIA Additional Family Medical History / Comment(s): right carotid endarterectomy, rheumatic fever Brother(s) Family Medical History: AICD/Pacemaker, Coronary Artery Disease (CAD), Hyperten kayden Additional Family Medical History / Comment(s): CODED on treadmill at [facility] Office Medications and Allergies Home Medications Medication Instructions Recorded Confirmed Type Enalapril [Vasotec] 2.5 mg PO DAILY 10/10/13 09/04/23 History Nitroglycerin Sl Tabs [Nitrostat] 0.4 mg SUBLINGUAL Q5M PRN 10/10/13 09/04/23 History traMADol HCL [Ultram] 50 mg PO Q6HR PRN 05/11/20 09/04/23 History metFORMIN HCL [Glucophage] 500 mg PO BID 08/07/20 09/04/23 History Atorvastatin [Lipitor] 80 mg PO HS 09/04/23 09/04/23 History Dulaglutide [Trulicity] 3 mg SQ WE 09/04/23 09/04/23 History Glimepiride [Amaryl] 1 mg PO [id number] 09/04/23 09/04/23 History Ibuprofen [Motrin] 800 mg PO TID 09/04/23 09/04/23 History Metoprolol Succinate [Toprol XL] 100 mg PO DAILY 09/04/23 09/04/23 History Spironolactone [Aldactone] 25 mg PO DAILY 09/04/23 09/04/23 History Allergies Allergy/AdvReac Type Severity Reaction Status Date / Time adhesive tape Allergy Rash/Hives Verified 09/04/23 10:31 banana Allergy THROAT Verified 09/04/23 10:31 FEELS SCRATCHY AND SWOLLEN codeine Allergy Itching Verified 09/04/23 10:31 diclofenac AdvReac joint & Verified 09/04/23 10:31 muscle pain, hands numb prochlorperazine edisylate AdvReac FEELING OF Verified 09/04/23 10:31 [From Compazine] BEING HOT AND IRRITABLE prochlorperazine maleate AdvReac FEELING OF Verified 09/04/23 10:31 [From Compazine] BEING HOT AND IRRITABLE muskmelon Allergy Severe THROAT Uncoded 09/04/23 10:31 FEELS SCRATCHY AND SWOLLEN Physical Exam Vitals: Vital Signs Temp Pulse Resp BP BP Pulse Ox 09/06/23 07:00 98.7 F 94 16 117/78 96 09/06/23 03:26 97.6 F 89 16 103/67 97 09/05/23 19:55 98.8 F 89 16 105/64 94 L 09/05/23 15:00 98.2 F 101 H 18 100/63 93 L Intake and Output 09/05/23 09/06/23 09/06/23 22:59 06:59 14:59 Intake Total 240 Balance 240 Intake: Oral 240 Other: Voiding Method Toilet Toilet # Voids 1 2 Results 09/06/23 12:03 09/06/23 06:12 Cardiac Enzymes 09/05/23 09/06/23 Range/Units 06:15 06:12 AST 41 H 33 (14-35) U/L CBC 09/05/23 09/06/23 Range/Units 06:15 06:12 WBC 8.07 7.9 (4.50-10.00) X 10*3/uL RBC 3.60 L 3.56 L (4.40-5.60) X 10*6/uL Hgb 11.1 L 11.2 L (13.0-17.0) g/dL Hct 34.2 L 34.1 L (39.6-50.0) % Plt Count 185 207 (140-440) X 10*3/uL Comprehensive Metabolic Panel 09/05/23 09/06/23 Range/Units 06:15 06:12 Sodium 141 140 (135-145) mmol/L Potassium 4.3 4.4 (3.5-5.5) mmol/L Chloride 109 110 H (96-109) mmol/L Carbon Dioxide 22.3 23 (21.6-31.8) mmol/L BUN 16.7 19 (9.0-27.0) mg/dL Creatinine 1.0 0.84 (0.6-1.5) mg/dL Glucose 101 139 H (70-110) mg/dL Calcium 8.3 L 8.2 L (8.7-10.3) mg/dL AST 41 H 33 (14-35) U/L ALT 23 28 (10-49) U/L Alkaline Phosphatase 63 62 (41-126) U/L Total Protein 5.4 L 5.3 L (6.2-8.2) g/dL Albumin 3.6 L 3.0 L (3.8-4.9) g/dL Current Medications Generic Name Dose Route Start Last Admin Trade Name Freq PRN Reason Stop Dose Admin Acetaminophen 650 mg 09/04/23 01:10 Acetaminophen Tab 325 Mg Tab PO Q6HR PRN Mild Pain or Fever > 100.5 Hydrocodone Bitart/Acetaminophen 1 each 09/06/23 09:00 Hydrocodone/Apap 7.5-325mg 1 Each Tab PO Q6HR PRN Pain Aspirin 81 mg 09/06/23 09:00 09/06/23 09:14 Aspirin 81 Mg PO Not Given DAILY MERLE Atorvastatin Calcium 80 mg 09/04/23 21:00 09/05/23 20:30 Atorvastatin 80 Mg Tab PO 80 mg HS MERLE Administration Dextrose/Water 25 ml 09/04/23 13:01 Dextrose 50% Syringe 50 Ml IVP PER PROTOCOL PRN Hypoglycemia Protocol Dextrose/Water 50 ml 09/04/23 13:01 Dextrose 50% Syringe 50 Ml IVP PER PROTOCOL PRN Hypoglycemia Protocol Enoxaparin Sodium 40 mg 09/05/23 09:00 09/06/23 09:14 Enoxaparin 40 Mg/0.4 Ml Syringe SQ 40 mg DAILY MERLE Administration Hydromorphone HCl 0.5 mg 09/06/23 09:02 Hydromorphone 0.5 Mg/0.5 Ml Syringe IVP Q4HR PRN Moderate Pain (Scale 4 to 6) Sodium Chloride 1,000 mls @ 75 mls/hr 09/04/23 01:15 09/06/23 05:48 Saline 0.9% IV 75 mls/hr .[id number] MERLE Administration Insulin Aspart 0 unit 09/04/23 17:30 09/06/23 06:42 Insulin Aspart (Novolog) 100 Unit/Ml Vial SQ Not Given ACHS MERLE Protocol Lisinopril 5 mg 09/05/23 09:00 09/06/23 09:14 Lisinopril 5 Mg Tab PO 5 mg DAILY MERLE Administration Metoprolol Succinate 100 mg 09/05/23 09:00 09/06/23 09:14 Metoprolol Succinate (Er) 100 Mg Tab.Er.24h PO 100 mg DAILY MERLE Administration Naloxone HCl 0.2 mg 09/04/23 01:10 Naloxone 0.4 Mg/Ml 1 Ml Vial IV Q2M PRN Opioid Reversal Ondansetron HCl 4 mg 09/04/23 01:10 09/05/23 08:38 Ondansetron 4 Mg/2 Ml Vial IVP 4 mg Q8HR PRN Administration Nausea And Vomiting Tamsulosin HCl 0.4 mg 09/05/23 18:30 09/05/23 17:45 Tamsulosin 0.4 Mg Cap.Er.24h PO 0.4 mg PC-SUPPER MERLE Administration Intake and Output 09/05/23 09/06/23 09/06/23 22:59 06:59 14:59 Intake Total 240 Balance 240 Intake: Oral 240 Other: Voiding Method Toilet Toilet # Voids 1 2 09/06/23 06:12 09/06/23 06:12
[2023-09-06] MEDS: HYDROcodone/APAP 7.5-325MG 1 EACH TAB PO PRN (11:45)
[2023-09-06] MEDS: HEPARIN SOD,PORK IN 0.45% NACL 25,000 UNIT in 0.45% NACL 1 250ML.BAG IV SCH (11:51)
[2023-09-06] MEDS: SODIUM CHLORIDE 0.9% 1,000 ML in EMPTY BAG 1 BAG IV SCH (11:51)
[2023-09-06] MEDS: HEPARIN SODIUM 1,000 UN/ML (10ML VL) IV ONE (11:52)
[2023-09-06] MEDS: tiZANidine 4 MG TAB PO PRN (11:55)
[2023-09-06 12:30] LABS: Glucose,Whole Blood 218 mg/dL (70-110)
[2023-09-06 12:31] LABS: Basophils # (A) 0.1 k/uL (0-0.2); Basophils % (A) 1 %; Eosinophils # (A) 0.4 k/uL (0-0.7); Eosinophils % (A) 5 %; HCT 38.2 % (39.0-53.0); HGB 12.1 gm/dL (13.0-17.5); Lymphocytes # (A) 1.4 k/uL (1.0-4.8); Lymphocytes % (A) 16 %; MCHC 31.7 g/dL (31.0-37.0); MCV 97.6 fL (80.0-100.0); Mean Platelet Volume 7.8; Monocytes # (A) 0.6 k/uL (0-1.0); Monocytes % (A) 7 %; Neutrophils # (A) 6.3 k/uL (1.3-7.7); Neutrophils % (A) 71 %; Platelet Count 202 k/uL (150-450); RBC 3.92 m/uL (4.30-5.90); RDW 12.9 % (11.5-15.5); WBC 8.9 k/uL (3.8-10.6)
[2023-09-06 12:36] LABS: INR 1.2 (<1.2); Prothrombin Time 12.4 sec (10.0-12.5)
[2023-09-06] MEDS: NITROGLYCERIN OINT 1 INCH/GM PACKET TOPICAL SCH (13:29)
[2023-09-06] MEDS ORDERED: VERAPAMIL 2.5 MG/ML 2 ML AMP ONE (13:44)
[2023-09-06] MEDS ORDERED: LIDOCAINE 1% INJ 10MG/ML (20 ML MDV) ONE (13:45)
[2023-09-06] MEDS ORDERED: fentaNYL (PF) 50 MCG/ML 2 ML AMP ONE (13:45)
[2023-09-06] MEDS ORDERED: HEPARIN SODIUM 1,000 UN/ML (10ML VL) ONE (13:45)
[2023-09-06] MEDS: SODIUM CHLORIDE 0.9% 1,000 ML IV ONE (13:53)
[2023-09-06] MEDS: fentaNYL (PF) 50 MCG/ML 2 ML AMP IVP ONE (13:53)
[2023-09-06] MEDS: MIDAZOLAM 2 MG/2 ML VIAL IVP ONE ×2 (13:53→14:10)
[2023-09-06] MEDS: LIDOCAINE 2% (PF) 20 MG/ML 5 ML VIAL SQ ONE (13:54)
[2023-09-06] MEDS: VERAPAMIL SYRINGE (5 MG/10 ML) INTRAARTER ONE (13:59)
[2023-09-06] MEDS: IOPAMIDOL-370 100ML BTL INJ ONE (14:21)
[2023-09-06] MEDS ORDERED: RX INFO: IV CONTRAST WAS GIVEN 1 EACH MISC MISCELLANE PRN (14:22)
--- NOTE | 2023-09-06 14:31 | P.PCN ---
Date of Procedure: 09/06/23 Operative Findings: CARDIAC CATHETERIZATION PERFORMING PHYSICIAN: Felton Yañez MD, RPVI PROCEDURE PERFORMED: 1. Selective right and left coronary angiogram 2. Ultrasound-guided access of the right radial artery INDICATION: Acute non-ST elevation myocardial infarction COMPLICATION: None APPROACH: Right radial artery LEVEL OF SEDATION: Moderate with a sedation length of 24 minutes PROCEDURE DESCRIPTION: After obtaining an informed consent, the patient was brought to cardiac laborer tanbark. Local anesthesia was performed using lidocaine subcutaneously. The right radial artery was cannulated using Seldinger technique, the guidewire passed easily, following that we advanced a 5-Turkmen sheath dilator assembly, the wire and dilator were removed and sheath was flushed. Following that, 2 mg of verapamil along with 5000 unit heparin were given. Selective right and left coronary angiogram using a 6-Turkmen JR4 and JL 3.5 catheters. The procedure was completed there was no complication. SELECTIVE CORONARY ANGIOGRAM: The right coronary artery: Large-caliber vessel and a dominant vessel. The stent in the mid RCA is patent. The RCA gives rise into the PDA branch which appears to be patent and PLV branch which has intermediate to severe lesion appears to be slightly worse compared to before. Left main: Is angiographically normal. The left circumflex: The left circumflex is chronically occluded and this is a known finding from before The left anterior descending artery: Large caliber vessel. The LAD is stented in the midportion and appears to have mild in-stent restenosis. The LAD gives rise into a large diagonal branch and that seems to be normal. Distal to the diagonal branch there is mild to moderate disease in the LAD CONCLUSION: 1. Patent stent in the mid RCA. Intermediate to severe disease involving the PLV branch of the RCA. 2. Chronic total occlusion of the LCx which is a known finding from before 3. Patent stent in the mid LAD with mild disease involving the distal LAD appears to be the same as before POSTPROCEDURE MANAGEMENT: Consider medical treatment at this point Follow-up on the echocardiogram to assess aortic valve Consider PCI of the PLV branch if the patient remains symptomatic on maximized medical treatment
[2023-09-06] MEDS: SODIUM CHLORIDE 0.9% 1,000 ML IV SCH (16:09)
--- NOTE | 2023-09-06 16:18 | P.PN ---
Subjective Progress Note Date: 09/06/23 CHIEF COMPLAINT: Abdominal pain HISTORY OF PRESENT ILLNESS: Patient reports improvement in his abdominal pain. He is now having pain between his shoulder blades and shortness of breath. Has had no further nausea or vomiting. He did have some dark stone flecks in his urine. Patient evaluated by cardiology for chest pain. Had elevated troponin and underwent heart catheterization today. Afebrile. WBC 8.9 Hgb 12.1 PHYSICAL EXAM: VITAL SIGNS: Reviewed. GENERAL: Well-developed in no acute distress. ABDOMEN: Soft. Nondistended. Nontender NEUROLOGIC: Alert and oriented. Cranial nerves II through XII grossly intact. ASSESSMENT: 1. Abdominal pain improved. Possibly due to both the kidney stone and cholecystitis 2. Chronic cholecystitis. Ultrasound reporting 1.1 cm nonshadowing stone versus gallbladder wall polyp near the neck of the gallbladder. Reporting no findings of acute cholecystitis PLAN: -Recommend outpatient cholecystectomy when medically stable and completed cardiac workup Physician Commercial Stripper note has been reviewed by physician. Signing provider agrees with the documented findings, assessment, and plan of care. Objective - Vital Signs Vital signs: Vital Signs Temp 98.1 F 09/06/23 14:39 Pulse 84 09/06/23 16:07 Resp 17 09/06/23 16:07 BP 101/67 09/06/23 16:07 Pulse Ox 96 09/06/23 16:07 FiO2 Intake & Output 09/05/23 09/06/23 09/06/23 18:59 06:59 18:59 Intake Total 598 415 Balance 598 415 Intake: IV 175 Oral 598 240 Other: Voiding Method Toilet Toilet # Voids 1 2 - Labs CBC & Chem 7: 09/06/23 12:03 09/06/23 06:12 Labs: Abnormal Lab Results - Last 24 Hours (Table) 09/05/23 09/05/23 09/06/23 Range/Units 17:33 19:56 06:12 RBC 3.56 L (4.30-5.90) m/uL Hgb 11.2 L (13.0-17.5) gm/dL Hct 34.1 L (39.0-53.0) % INR (<1.2) APTT (22.0-30.0) sec Chloride (98-107) mmol/L Glucose (74-99) mg/dL POC Glucose (mg/dL) 159 H 157 H (70-110) mg/dL Calcium (8.4-10.2) mg/dL Total Bilirubin (0.2-1.3) mg/dL Troponin I (0.000-0.034) ng/mL Total Protein (6.3-8.2) g/dL Albumin (3.5-5.0) g/dL 09/06/23 09/06/23 09/06/23 Range/Units 06:12 06:35 09:07 RBC (4.30-5.90) m/uL Hgb (13.0-17.5) gm/dL Hct (39.0-53.0) % INR (<1.2) APTT (22.0-30.0) sec Chloride 110 H (98-107) mmol/L Glucose 139 H (74-99) mg/dL POC Glucose (mg/dL) 147 H (70-110) mg/dL Calcium 8.2 L (8.4-10.2) mg/dL Total Bilirubin 2.3 H (0.2-1.3) mg/dL Troponin I 1.230 H* (0.000-0.034) ng/mL Total Protein 5.3 L (6.3-8.2) g/dL Albumin 3.0 L (3.5-5.0) g/dL 09/06/23 09/06/23 09/06/23 Range/Units 12:03 12:03 12:03 RBC 3.92 L (4.30-5.90) m/uL Hgb 12.1 L (13.0-17.5) gm/dL Hct 38.2 L (39.0-53.0) % INR 1.2 H (<1.2) APTT 93.0 H (22.0-30.0) sec Chloride (98-107) mmol/L Glucose (74-99) mg/dL POC Glucose (mg/dL) (70-110) mg/dL Calcium (8.4-10.2) mg/dL Total Bilirubin (0.2-1.3) mg/dL Troponin I 1.100 H* (0.000-0.034) ng/mL Total Protein (6.3-8.2) g/dL Albumin (3.5-5.0) g/dL 09/06/23 Range/Units 12:29 RBC (4.30-5.90) m/uL Hgb (13.0-17.5) gm/dL Hct (39.0-53.0) % INR (<1.2) APTT (22.0-30.0) sec Chloride (98-107) mmol/L Glucose (74-99) mg/dL POC Glucose (mg/dL) 218 H (70-110) mg/dL Calcium (8.4-10.2) mg/dL Total Bilirubin (0.2-1.3) mg/dL Troponin I (0.000-0.034) ng/mL Total Protein (6.3-8.2) g/dL Albumin (3.5-5.0) g/dL
[2023-09-06 16:23] LABS: Glucose,Whole Blood 226 mg/dL (70-110)
--- NOTE | 2023-09-06 16:28 | P.PN ---
Subjective Progress Note Date: 09/06/23 (delayed charting seen at 0930) Patient is a 57-year-old male with diabetes mellitus, hypertension, hyperlipidemia, chronic systolic heart failure status post ICD, coronary disease status post multiple stents who presented to the ED with right flank pain. IN the ER he underwent extensive evaluation. Laboratory analysis was remarkable for WBC was 18.0, Total bilirubin 2.2, Urine showed 2+ ketones and moderate blood. His CT abdomen pelvis showed nonobstructing bilateral renal stones measuring up to 7 mm in the left lower lobe. For intractable abdominal pain. He was started on a clear liquid diet, normal saline, and IV narcotic medications for pain. General surgery and urology were consulted. Patient seen and examined at bedside. He reports shortness of breath with pain in between his shoulder blades. He reports this is similar to his prior episodes of myocardial infarction. He denies any nausea or vomiting. His right lower quadrant pain has almost completely resolved. Vital signs reviewed General: Nontoxic, mild distress due to pain, appears at stated age Cardiovascular: S1S2 reg, no murmur Lungs: CTA bilateral, no rhonchi, no rales, no accessory muscle use Abdominal: Soft, nontender to palpation, no guarding Ext: No gross muscle atrophy, no edema b/l lower extremities, no contractures Neuro: CN II-XI grossly intact, no focal neuro deficits Psych: Alert, oriented, appropriate affect Assessment/Plan: Intractable abdominal pain due to 4 mm right sided ureteric stone Microscopic hematuria -Urology note reviewed: No surgical intervention warranted at this point in time - Dilaudid 0.5 mg every 3 hours as needed for pain -normal saline 75 cc an hour - consistent carb diet Chest pain NSTEMI -EKG ordered and reviewed which demonstrates no significant ST-T wave changes -Stat troponin ordered and reviewed -Stat administration of aspirin 325 mg ordered And consult cardiology -Troponin reviewed and elevated at 1.230. Orders reviewed and cardiology started heparin drip and plan is for cardiac catheterization Hypertension Chronic heart failure with reduced ejection fraction status post ICD, EF 30-35% Coronary disease status post stents Hyperlipidemia -Continue with Lisinopril 5 mg daily, metoprolol succinate 100 mg daily, - hold off on spironolactone continue - D/C normal saline 75 ml/hr - Continue to monitor volume status while on gentle fluids - Lipitor 80 mg daily Chronic cholecystitis possible gallstone vs polyp -Surgery note reviewed: Outpatient cholecystectomy when medically stable Diabetes mellitus - Hold metformin, glimepride - Sliding scale insulin - A1C 7.3 Leukocytosis, resolved Imaging: As above Data Review: Labs reviewed from today include CBC which is remarkable for hemoglobin 12 DVT prophylaxis: Lovenox Anticipated discharge date: Pending Clinical Course Anticipated discharge place: Pending Clinical Course This dictation was prepared using [email or web address] voice recognition software. Though every attempt is made to correct errors during dictation some may still exist. Objective - Vital Signs Vital signs: Vital Signs Temp 98.1 F 09/06/23 14:39 Pulse 84 09/06/23 16:07 Resp 17 09/06/23 16:07 BP 101/67 09/06/23 16:07 Pulse Ox 96 09/06/23 16:07 FiO2 Intake & Output 09/05/23 09/06/23 09/06/23 18:59 06:59 18:59 Intake Total 598 415 Balance 598 415 Intake: IV 175 Oral 598 240 Other: Voiding Method Toilet Toilet # Voids 1 2 - Labs CBC & Chem 7: 09/06/23 12:03 09/06/23 06:12 Labs: Abnormal Lab Results - Last 24 Hours (Table) 09/05/23 09/05/23 09/06/23 Range/Units 17:33 19:56 06:12 RBC 3.56 L (4.30-5.90) m/uL Hgb 11.2 L (13.0-17.5) gm/dL Hct 34.1 L (39.0-53.0) % INR (<1.2) APTT (22.0-30.0) sec Chloride (98-107) mmol/L Glucose (74-99) mg/dL POC Glucose (mg/dL) 159 H 157 H (70-110) mg/dL Calcium (8.4-10.2) mg/dL Total Bilirubin (0.2-1.3) mg/dL Troponin I (0.000-0.034) ng/mL Total Protein (6.3-8.2) g/dL Albumin (3.5-5.0) g/dL 09/06/23 09/06/23 09/06/23 Range/Units 06:12 06:35 09:07 RBC (4.30-5.90) m/uL Hgb (13.0-17.5) gm/dL Hct (39.0-53.0) % INR (<1.2) APTT (22.0-30.0) sec Chloride 110 H (98-107) mmol/L Glucose 139 H (74-99) mg/dL POC Glucose (mg/dL) 147 H (70-110) mg/dL Calcium 8.2 L (8.4-10.2) mg/dL Total Bilirubin 2.3 H (0.2-1.3) mg/dL Troponin I 1.230 H* (0.000-0.034) ng/mL Total Protein 5.3 L (6.3-8.2) g/dL Albumin 3.0 L (3.5-5.0) g/dL 09/06/23 09/06/23 09/06/23 Range/Units 12:03 12:03 12:03 RBC 3.92 L (4.30-5.90) m/uL Hgb 12.1 L (13.0-17.5) gm/dL Hct 38.2 L (39.0-53.0) % INR 1.2 H (<1.2) APTT 93.0 H (22.0-30.0) sec Chloride (98-107) mmol/L Glucose (74-99) mg/dL POC Glucose (mg/dL) (70-110) mg/dL Calcium (8.4-10.2) mg/dL Total Bilirubin (0.2-1.3) mg/dL Troponin I 1.100 H* (0.000-0.034) ng/mL Total Protein (6.3-8.2) g/dL Albumin (3.5-5.0) g/dL 09/06/23 Range/Units 12:29 RBC (4.30-5.90) m/uL Hgb (13.0-17.5) gm/dL Hct (39.0-53.0) % INR (<1.2) APTT (22.0-30.0) sec Chloride (98-107) mmol/L Glucose (74-99) mg/dL POC Glucose (mg/dL) 218 H (70-110) mg/dL Calcium (8.4-10.2) mg/dL Total Bilirubin (0.2-1.3) mg/dL Troponin I (0.000-0.034) ng/mL Total Protein (6.3-8.2) g/dL Albumin (3.5-5.0) g/dL
[2023-09-06 19:57] LABS: Glucose,Whole Blood 178 mg/dL (70-110)
[2023-09-07 06:08] LABS: Glucose,Whole Blood 141 mg/dL (70-110)
[2023-09-07] MEDS ORDERED: HEPARIN SODIUM,PORCINE (1 ML) 2,500 UNIT in SODIUM CHLORIDE 0.9% 250 ML IRRIGATION PRN (07:00)
[2023-09-07] MEDS ORDERED: HEPARIN SODIUM,PORCINE 10,000 UNIT in SODIUM CHLORIDE 0.9% 1,000 ML IRRIGATION PRN (07:00)
--- NOTE | 2023-09-07 07:46 | P.PN ---
Subjective Progress Note Date: 09/07/23 The patient has been seen by urology for a small distal right ureteral stone, 4mm. His pain is minimal He had a a cardiac cath yesterday. Objective - Vital Signs Vital signs: Vital Signs Temp 98.3 F 09/07/23 04:00 Pulse 87 09/07/23 04:00 Resp 16 09/07/23 04:00 BP 92/55 09/07/23 04:00 Pulse Ox 97 09/07/23 04:00 FiO2 Intake & Output 09/06/23 09/06/23 09/07/23 06:59 18:59 06:59 Intake Total 533 Balance 533 Intake: IV 175 Oral 358 Other: Voiding Method Toilet Toilet Toilet # Voids 2 1 - Labs CBC & Chem 7: 09/06/23 12:03 09/06/23 06:12 Labs: Abnormal Lab Results - Last 24 Hours (Table) 09/06/23 09/06/23 09/06/23 Range/Units 06:12 06:12 06:35 RBC 3.56 L (4.30-5.90) m/uL Hgb 11.2 L (13.0-17.5) gm/dL Hct 34.1 L (39.0-53.0) % INR (<1.2) APTT (22.0-30.0) sec Chloride 110 H (98-107) mmol/L Glucose 139 H (74-99) mg/dL POC Glucose (mg/dL) 147 H (70-110) mg/dL Calcium 8.2 L (8.4-10.2) mg/dL Total Bilirubin 2.3 H (0.2-1.3) mg/dL Troponin I (0.000-0.034) ng/mL Total Protein 5.3 L (6.3-8.2) g/dL Albumin 3.0 L (3.5-5.0) g/dL 09/06/23 09/06/23 09/06/23 Range/Units 09:07 12:03 12:03 RBC 3.92 L (4.30-5.90) m/uL Hgb 12.1 L (13.0-17.5) gm/dL Hct 38.2 L (39.0-53.0) % INR (<1.2) APTT (22.0-30.0) sec Chloride (98-107) mmol/L Glucose (74-99) mg/dL POC Glucose (mg/dL) (70-110) mg/dL Calcium (8.4-10.2) mg/dL Total Bilirubin (0.2-1.3) mg/dL Troponin I 1.230 H* 1.100 H* (0.000-0.034) ng/mL Total Protein (6.3-8.2) g/dL Albumin (3.5-5.0) g/dL 09/06/23 09/06/23 09/06/23 Range/Units 12:03 12:29 16:21 RBC (4.30-5.90) m/uL Hgb (13.0-17.5) gm/dL Hct (39.0-53.0) % INR 1.2 H (<1.2) APTT 93.0 H (22.0-30.0) sec Chloride (98-107) mmol/L Glucose (74-99) mg/dL POC Glucose (mg/dL) 218 H 226 H (70-110) mg/dL Calcium (8.4-10.2) mg/dL Total Bilirubin (0.2-1.3) mg/dL Troponin I (0.000-0.034) ng/mL Total Protein (6.3-8.2) g/dL Albumin (3.5-5.0) g/dL 09/06/23 09/07/23 Range/Units 19:56 06:06 RBC (4.30-5.90) m/uL Hgb (13.0-17.5) gm/dL Hct (39.0-53.0) % INR (<1.2) APTT (22.0-30.0) sec Chloride (98-107) mmol/L Glucose (74-99) mg/dL POC Glucose (mg/dL) 178 H 141 H (70-110) mg/dL Calcium (8.4-10.2) mg/dL Total Bilirubin (0.2-1.3) mg/dL Troponin I (0.000-0.034) ng/mL Total Protein (6.3-8.2) g/dL Albumin (3.5-5.0) g/dL Assessment and Plan Assessment: Impression; right ureteral stone Plan: spontaneous passage if possible. at present since he isnot having pain we will continue with that treatment plan.
[2023-09-07 08:12] LABS: Basophils % (A) 1 %; Eosinophils # (A) 0.6 k/uL (0-0.7); Eosinophils % (A) 8 %; HCT 36.8 % (39.0-53.0); Lymphocytes # (A) 1.1 k/uL (1.0-4.8); Lymphocytes % (A) 15 %; MCH 31.3 pg (25.0-35.0); MCHC 32.5 g/dL (31.0-37.0); MCV 96.2 fL (80.0-100.0); Mean Platelet Volume 7.7; Monocytes # (A) 0.5 k/uL (0-1.0); Monocytes % (A) 7 %; Neutrophils # (A) 4.9 k/uL (1.3-7.7); Neutrophils % (A) 69 %; Platelet Count 203 k/uL (150-450); RBC 3.83 m/uL (4.30-5.90); WBC 7.2 k/uL (3.8-10.6)
[2023-09-07 08:21] LABS: INR 1.1 (<1.2); Prothrombin Time 11.6 sec (10.0-12.5)
[2023-09-07 08:25] LABS: ALT 28 U/L (4-49); AST 27 U/L (17-59); African American GFR (CKD) >90 (>60 ml/min/1.73 sqM); Albumin 3.2 g/dL (3.5-5.0); Alkaline Phosphatase 71 U/L (38-126); Anion Gap 5 mmol/L; Blood Urea Nitrogen 16 mg/dL (9-20); Calcium 8.6 mg/dL (8.4-10.2); Carbon Dioxide 23 mmol/L (22-30); Chloride 112 mmol/L (98-107); Glucose 148 mg/dL (74-99); Magnesium 1.6 mg/dL (1.6-2.3); Non-African American GFR(CKD) >90 (>60 ml/min/1.73 sqM); Phosphorus 3.2 mg/dL (2.5-4.5); Potassium 4.1 mmol/L (3.5-5.1); Sodium 140 mmol/L (137-145); Total Bilirubin 2.8 mg/dL (0.2-1.3); Total Protein 5.7 g/dL (6.3-8.2)
--- NOTE | 2023-09-07 10:07 | P.PN ---
Subjective Progress Note Date: 09/07/23 Hospital course: Patient is a very pleasant 57-year-old male with a past medical history of diabetes mellitus, hypertension, hyperlipidemia, chronic systolic heart failure status post ICD, coronary disease status post multiple stents. He presented to the ED on 09/03/2023 with a chief complaint of right flank pain. Patient underwent evaluation in the emergency department.. Laboratory analysis was remarkable for WBC was 18.0, Total bilirubin 2.2, Urine showed 2+ ketones and moderate blood. His CT abdomen pelvis showed nonobstructing bilateral renal stones measuring up to 7 mm in the left lower lobe. He was admitted under our services for intractable abdominal pain and was started on a clear liquid diet, normal saline, and IV narcotic medications for pain. General surgery and urology were consulted. On 09/06/2023, patient developed reports of chest pain and an EKG was obtained showing normal sinus rhythm at 91 bpm with T wave inversion in leads I, aVL and V4 through V6. A troponin was obtained resulting at 1.230 with repeat troponin of 1.100. Cardiology was consulted and patient was taken for cardiac catheterization which reported patent stent in the mid RCA with intermediate to severe disease involving the PLV branch of the RCA and chronic total occlusion of the left circumflex with patent stent in the mid LAD with mild disease involving the distal LAD appearing to be unchanged per cardiology report. Gas Appliance Repairer recommending continuing of medical management at this point and following up with echocardiogram to assess aortic valve stating they will consider PCI of the PLV branch if patient remains symptomatic on maximized medical management. Physical exam: Seen and fully evaluated at bedside this morning. He is currently free from pain or complaints. Echocardiogram was completed and pending results. Vital signs reviewed and stable. General: Nontoxic, no distress and appears stated age. Derm: Skin warm and dry, normal coloration for ethnicity. Head: Atraumatic, normocephalic and symmetric. Eyes: EOMs intact, no lid lag, and anicteric sclera Mouth: no lip lesions, mucus membranes moist Cardiovascular: regular rate and rhythm with normal S1S2, no murmur, positive posterior tibial pulses bilaterally, and cap refill < 2 seconds. Lungs: Respirations even, regular, and unlabored on room air. Lungs CTA bilaterally, no rhonchi, no rales, no wheezing, and no accessory muscle usage. Abdominal: soft, nontender to palpation, no guarding, no appreciable organomegaly Ext: ROM intact. No gross muscle atrophy, no edema, no contractures Neuro: Speech clear, face symmetrical and CN II-XII grossly intact with no noted focal neuro deficits Psych: Alert and oriented to person, place, time, and situation. Appropriate and pleasant affect. Assessment and Plan of Care: NSTEMI -EKG was obtained showing normal sinus rhythm at 91 bpm with T wave inversion in leads I, aVL and V4 through V6. -Troponin resulting at 1.230 with repeat troponin of 1.100. -Cardiology following and took patient for cardiac catheterization on 09/06/2023 which reported patent stent in the mid RCA with intermediate to severe disease involving the PLV branch of the RCA and chronic total occlusion of the left circumflex with patent stent in the mid LAD with mild disease involving the distal LAD appearing to be unchanged per cardiology report. -Gas Appliance Repairer recommending continuing of medical management at this point and following up with echocardiogram to assess aortic valve stating they will consider PCI of the PLV branch if patient remains symptomatic on maximized medical management. -Continue aspirin 81 mg daily, atorvastatin 80 mg nightly, lisinopril 5 mg daily, metoprolol 100 mg daily, and as needed sublingual nitroglycerin 0.4 mg as needed for chest pain. -Echocardiogram pending. Intractable abdominal pain due to 4 mm right sided ureteric stone Microscopic hematuria -Urology note reviewed: No surgical intervention warranted at this point in time - Dilaudid 0.5 mg every 3 hours as needed for pain -normal saline 75 cc an hour - consistent carb diet Chronic cholecystitis possible gallstone vs polyp -Surgery note reviewed: Outpatient cholecystectomy when medically stable Hypertension Chronic heart failure with reduced ejection fraction status post ICD, EF 30-35% Coronary disease status post stents Hyperlipidemia -Continue aspirin 81 mg daily, atorvastatin 80 mg nightly, lisinopril 5 mg daily, and metoprolol 100 mg daily Diabetes mellitus - Hold metformin and glimepride and continue with glycemic protocol with NovoLog sliding scale. - A1C 7.3 Leukocytosis, resolved Imaging: As above Data Review: -Labs reviewed from today include CBC showing mild normocytic anemia with hemoglobin stable at 12.0. Coagulation profile normal findings. BMP revealing mild hyperchloremia with chloride of 112 otherwise normal findings. Blood glucose slightly elevated at 148. Liver profile showing continued elevation of total bili at 2.8. -Vital signs reviewed. Blood pressure 92/55, heart rate 87, respiratory rate 16, temp 98.3 F, and SpO2 of 97% on 2 L. CODE STATUS: Full code DVT prophylaxis: Heparin Anticipated discharge date: Pending Clinical Course Anticipated discharge place: Pending Clinical Course Patient was seen independently by Nurse Pracitioner. This document was prepared using [employer] dictation software. Please allow for errors in garbage collector, while rare they do occur. Asif Hernandez CONSUMER EDUCATOR rendered care for this patient independently, reviewed the findings and plan as documented in the note above. I did not physically speak with or examine the patient on this date. Objective - Vital Signs Vital signs: Vital Signs Temp 98.3 F 09/07/23 04:00 Pulse 87 09/07/23 04:00 Resp 16 09/07/23 04:00 BP 92/55 09/07/23 04:00 Pulse Ox 97 09/07/23 04:00 FiO2 Intake & Output 09/06/23 09/07/23 09/07/23 18:59 06:59 18:59 Intake Total 533 Balance 533 Intake: IV 175 Oral 358 Other: Voiding Method Toilet Toilet # Voids 1 - Labs CBC & Chem 7: 09/09/23 07:13 09/09/23 07:13 Labs: Abnormal Lab Results - Last 24 Hours (Table) 09/06/23 09/06/23 09/06/23 Range/Units 09:07 12:03 12:03 RBC 3.92 L (4.30-5.90) m/uL Hgb 12.1 L (13.0-17.5) gm/dL Hct 38.2 L (39.0-53.0) % INR (<1.2) APTT (22.0-30.0) sec POC Glucose (mg/dL) (70-110) mg/dL Troponin I 1.230 H* 1.100 H* (0.000-0.034) ng/mL 09/06/23 09/06/23 09/06/23 Range/Units 12:03 12:29 16:21 RBC (4.30-5.90) m/uL Hgb (13.0-17.5) gm/dL Hct (39.0-53.0) % INR 1.2 H (<1.2) APTT 93.0 H (22.0-30.0) sec POC Glucose (mg/dL) 218 H 226 H (70-110) mg/dL Troponin I (0.000-0.034) ng/mL 09/06/23 09/07/23 Range/Units 19:56 06:06 RBC (4.30-5.90) m/uL Hgb (13.0-17.5) gm/dL Hct (39.0-53.0) % INR (<1.2) APTT (22.0-30.0) sec POC Glucose (mg/dL) 178 H 141 H (70-110) mg/dL Troponin I (0.000-0.034) ng/mL
[2023-09-07 11:41] LABS: Glucose,Whole Blood 166 mg/dL (70-110)
--- NOTE | 2023-09-07 12:00 | P.PN ---
Subjective Progress Note Date: 09/07/23 CHIEF COMPLAINT: Abdominal pain HISTORY OF PRESENT ILLNESS: Patient is status post heart catheterization yesterday. He did have pain again between the shoulder blades earlier today with shortness of breath. He is still passing pieces of dark flecks in urine. Patient denies any abdominal pain. Denies any nausea or vomiting. Tolerating diet. Afebrile. WBC 7.2 Hgb 12 total bilirubin 2.8. LFTs normal PHYSICAL EXAM: VITAL SIGNS: Reviewed. GENERAL: Well-developed in no acute distress. ABDOMEN: Soft. Nondistended. Nontender NEUROLOGIC: Alert and oriented. Cranial nerves II through XII grossly intact. ASSESSMENT: 1. Abdominal pain improved. Possibly due to both the kidney stone and chol ecystitis 2. Chronic cholecystitis. Ultrasound reporting 1.1 cm nonshadowing stone versus gallbladder wall polyp near the neck of the gallbladder. Reporting no findings of acute cholecystitis PLAN: -Recommend outpatient cholecystectomy when medically stable Physician Recordak Operator note has been reviewed by physician. Signing provider agrees with the documented findings, assessment, and plan of care. Objective - Vital Signs Vital signs: Vital Signs Temp 98.2 F 09/07/23 11:30 Pulse 92 09/07/23 11:30 Resp 16 09/07/23 11:30 BP 109/74 09/07/23 11:30 Pulse Ox 96 09/07/23 11:30 FiO2 Intake & Output 09/06/23 09/07/23 09/07/23 18:59 06:59 18:59 Intake Total 533 118 Balance 533 118 Intake: IV 175 Oral 358 118 Other: Voiding Method Toilet Toilet Toilet # Voids 1 1 - Labs CBC & Chem 7: 09/07/23 07:56 09/07/23 07:56 Labs: Abnormal Lab Results - Last 24 Hours (Table) 09/06/23 09/06/23 09/06/23 Range/Units 12:03 12:03 12:03 RBC 3.92 L (4.30-5.90) m/uL Hgb 12.1 L (13.0-17.5) gm/dL Hct 38.2 L (39.0-53.0) % INR 1.2 H (<1.2) APTT 93.0 H (22.0-30.0) sec Chloride (98-107) mmol/L Glucose (74-99) mg/dL POC Glucose (mg/dL) (70-110) mg/dL Total Bilirubin (0.2-1.3) mg/dL Troponin I 1.100 H* (0.000-0.034) ng/mL Total Protein (6.3-8.2) g/dL Albumin (3.5-5.0) g/dL 09/06/23 09/06/23 09/06/23 Range/Units 12:29 16:21 19:56 RBC (4.30-5.90) m/uL Hgb (13.0-17.5) gm/dL Hct (39.0-53.0) % INR (<1.2) APTT (22.0-30.0) sec Chloride (98-107) mmol/L Glucose (74-99) mg/dL POC Glucose (mg/dL) 218 H 226 H 178 H (70-110) mg/dL Total Bilirubin (0.2-1.3) mg/dL Troponin I (0.000-0.034) ng/mL Total Protein (6.3-8.2) g/dL Albumin (3.5-5.0) g/dL 09/07/23 09/07/23 09/07/23 Range/Units 06:06 07:56 07:56 RBC 3.83 L (4.30-5.90) m/uL Hgb 12.0 L (13.0-17.5) gm/dL Hct 36.8 L (39.0-53.0) % INR (<1.2) APTT (22.0-30.0) sec Chloride 112 H (98-107) mmol/L Glucose 148 H (74-99) mg/dL POC Glucose (mg/dL) 141 H (70-110) mg/dL Total Bilirubin 2.8 H (0.2-1.3) mg/dL Troponin I (0.000-0.034) ng/mL Total Protein 5.7 L (6.3-8.2) g/dL Albumin 3.2 L (3.5-5.0) g/dL 09/07/23 Range/Units 11:40 RBC (4.30-5.90) m/uL Hgb (13.0-17.5) gm/dL Hct (39.0-53.0) % INR (<1.2) APTT (22.0-30.0) sec Chloride (98-107) mmol/L Glucose (74-99) mg/dL POC Glucose (mg/dL) 166 H (70-110) mg/dL Total Bilirubin (0.2-1.3) mg/dL Troponin I (0.000-0.034) ng/mL Total Protein (6.3-8.2) g/dL Albumin (3.5-5.0) g/dL
--- NOTE | 2023-09-07 15:07 | P.PN ---
Subjective HISTORY OF PRESENT ILLNESS: This is a 57-year-old male with a past medical history significant for coronary artery disease with previous stenting, ischemic cardiomyopathy, AICD implantation, hypertension, hyperlipidemia, valvular heart disease, bicuspid aortic valve with aortic stenosis and regurgitation, and diabetes. Patient follows in the office with Dr. Yañez. We have been asked to see the patient in consultation for chest pain. Patient examined at the bedside. Patient initially presented to the hospital with right sided abdominal pain. Patient was found to have right ureteral calculus. Patient is being followed by urology. Patient is requesting to attempt to pass the stone on his own. The patient developed discomfort this morning in between his shoulder blades which he states feels similar to when he required stenting in the past and cardiology was consulted for evaluation. EKG revealed sinus mechanism with no signs of acute ischemia. Troponin was drawn and resulted at 1.23. DIAGNOSTICS: - EKG reveals sinus mechanism with TWI laterally - Laboratory data: WBC 7.9. Hemoglobin 11.2. Platelet count 207. Sodium 140. Potassium 4.4. BUN 19. Creatinine 0.84. Troponin 1.230. - Current home cardiac medications include Lipitor 80 mg at night, metoprolol succinate 100 mg daily, Aldactone 25 mg daily, enalapril 2.5 mg daily. - Most recent echocardiogram obtained in February 2023 revealing EF 35%, severe , mild to moderate MR, moderate AR - Cardiac catheterization history: May 2020 revealing patent stent in the mid RCA. Intermediate disease involving the PLV branch of the RCA. Normal left main coronary artery. 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 Intermediate to severe lesion involving the mid LAD. Medical management was recommended. 09/06 patient seen and examined. Patient admits he is feeling short of breath and this is somewhat worse then previous. He has been receiving IV fluids. Repeat echo does show EF approximately 25-30% on personal review and does appear to have low flow low gradient severe aortic stenosis. He admits he has been having some shortness breath over the last few months. PHYSICAL EXAM: VITAL SIGNS: Reviewed. GENERAL: Well-developed in no acute distress. HEENT: Head is normocephalic. Pupils are equal, round. Sclerae anicteric. Mucous membranes of the mouth are moist. Neck supple. No JVD or thyromegaly LUNGS: Respirations even and unlabored. Lungs essentially clear to auscultation bilaterally. HEART: Regular rate and rhythm. S1 and S2 heard. Systolic murmur noted. ABDOMEN: Soft. Nondistended. Nontender. EXTREMITIES: Normal range of motion. No clubbing or cyanosis. Peripheral pulses intact. No lower extremity edema NEUROLOGIC: Awake and alert. Oriented x 3. ASSESSMENT: Abdominal pain Right-sided ureteral calculus Non-STEMI Coronary artery disease with previous stenting Ischemic cardiomyopathy History of AICD implantation Hypertension Hyperlipidemia Valvular heart disease including bicuspid aortic valve with severe , moderate AR, and mild to moderate MR Diabetes acute on chronic systolic heart failure PLAN: patient underwent heart catheterization with stable CAD other than small caliber PLV branch. This may be utility sales representative of stress-induced cardiomyopathy with echo on personal review showing some more atypical hypokinesis with basal sparing. He does have some increased shortness breath and appears to be in heart failure and we will give Lasix. Would recommend monitoring at least 1 mor e day and if stable discharge home tomorrow. Objective - Vital Signs Vital signs: Vital Signs Temp 98.2 F 09/07/23 11:30 Pulse 92 09/07/23 11:30 Resp 16 09/07/23 11:30 BP 109/74 09/07/23 11:30 Pulse Ox 96 09/07/23 11:30 FiO2 Intake & Output 09/06/23 09/07/23 09/07/23 18:59 06:59 18:59 Intake Total 533 236 Balance 533 236 Intake: IV 175 Oral 358 236 Other: Voiding Method Toilet Toilet Toilet # Voids 1 1 - Labs CBC & Chem 7: 09/07/23 07:56 09/07/23 07:56 Labs: Abnormal Lab Results - Last 24 Hours (Table) 09/06/23 09/06/23 09/07/23 Range/Units 16:21 19:56 06:06 RBC (4.30-5.90) m/uL Hgb (13.0-17.5) gm/dL Hct (39.0-53.0) % Chloride (98-107) mmol/L Glucose (74-99) mg/dL POC Glucose (mg/dL) 226 H 178 H 141 H (70-110) mg/dL Total Bilirubin (0.2-1.3) mg/dL Total Protein (6.3-8.2) g/dL Albumin (3.5-5.0) g/dL 09/07/23 09/07/23 09/07/23 Range/Units 07:56 07:56 11:40 RBC 3.83 L (4.30-5.90) m/uL Hgb 12.0 L (13.0-17.5) gm/dL Hct 36.8 L (39.0-53.0) % Chloride 112 H (98-107) mmol/L Glucose 148 H (74-99) mg/dL POC Glucose (mg/dL) 166 H (70-110) mg/dL Total Bilirubin 2.8 H (0.2-1.3) mg/dL Total Protein 5.7 L (6.3-8.2) g/dL Albumin 3.2 L (3.5-5.0) g/dL
[2023-09-07 16:48] LABS: Glucose,Whole Blood 140 mg/dL (70-110)
[2023-09-07] MEDS: FUROSEMIDE 10 MG/ML 4 ML VIAL IV SCH (17:01)
[2023-09-07 20:01] LABS: Glucose,Whole Blood 209 mg/dL (70-110)
[2023-09-08 06:16] LABS: Glucose,Whole Blood 134 mg/dL (70-110)
--- NOTE | 2023-09-08 07:39 | CA ---
Transthoracic Echo Report Name: Chase Buenrostro Age: 57 Gender: M : 1965 Exam Date: 09/07/2023 08:14 Exam Location: [facility] Ht (in): 68 Wt (lb): 200 Ordering Physician: Vira Neely Attending/Referring Phys: [id number], Florinda Folder Operator Gladys Hartley RDCS Procedure CPT: Indications: LV function Cardiac Hx: AICD, STENTS Technical Quality: Technically difficult study Contrast 1: Definity Total Dose (mL): 2 Contrast 2: Total Dose (mL): MEASUREMENTS (Male / Female) Normal Values 2D ECHO LV Diastolic Diameter PLAX 7.3 cm 4.2 - 5.9 / 3.9 - 5.3 cm LV Systolic Diameter PLAX 5.9 cm IVS Diastolic Thickness 1.7 cm 0.6 - 1.0 / 0.6 - 0.9 cm LVPW Diastolic Thickness 1.4 cm 0.6 - 1.0 / 0.6 - 0.9 cm LV Relative Wall Thickness 0.4 RV Internal Dim ED PLAX 3.2 cm LVOT Diameter 2.5 cm LA Systolic Diameter LX 3.7 cm 3.0 - 4.0 / 2.7 - 3.8 cm LA Volume 85.7 cm??? 18 - 58 / 22 - 52 cm??? LA Volume Index 40.6 cm???/m??? 16 - 28 cm???/m??? M-MODE Aortic Root Diameter MM 3.6 cm DOPPLER AV Peak Velocity 364.6 cm/s AV Peak Gradient 53.2 mmHg AV Mean Velocity 292.9 cm/s AV Mean Gradient 36.8 mmHg AV Velocity Time Integral 83.1 cm LVOT Peak Velocity 91.0 cm/s LVOT Peak Gradient 3.3 mmHg AV Area Cont Eq pk 1.3 cm??? MV Area PHT 6.4 cm??? Mitral E Point Velocity 133.2 cm/s Mitral A Point Velocity 70.0 cm/s Mitral E to A Ratio 1.9 MV Deceleration Time 119.3 ms TR Peak Velocity 362.8 cm/s TR Peak Gradient 52.7 mmHg Right Ventricular Systolic Press 56.2 mmHg FINDINGS Left Ventricle Left ventricular ejection fraction is estimated at 25-30 %. Severely increased septal wall thickness. Severely increased left ventricular diastolic diameter. Severely reduced global left ventricular systolic function. Right Ventricle Normal right ventricular size. Severe pulmonary hypertension. Right ventricular systolic pressure estimated at 56 mm hg. Right Atrium Normal right atrial size. Left Atrium Severely increased left atrial volume. Mildly increased left atrial area. Mitral Valve Structurally normal mitral valve. Mitral annular calcification. Mild mitral regurgitation. Aortic Valve Moderate aortic valve sclerosis. Moderate aortic stenosis with a peak gradient of 53 mmHg and a mean gradient of 37 mmHg. Tricuspid Valve Tricuspid valve not well visualized. [id number] tricuspid regurgitation. Pulmonic Valve Pulmonic valve not well visualized. Pericardium No pericardial effusion. Aorta Aortic annulus normal. Moderately dilated proximal ascending aorta 44 mm CONCLUSIONS Severe LV dysfunction Severe pulmonary hypertension Severe left atrial enlargement Reduced aortic valve excursion in the setting of a low EF Mean gradient 37 mmHg Previewed by: Dr. Moreno Hernandez MD (Electronically Signed) Final Date: 08 September 2023 07:38
[2023-09-08 10:11] LABS: HGB 13.3 gm/dL (13.0-17.5); MCH 32.2 pg (25.0-35.0); MCHC 34.2 g/dL (31.0-37.0); MCV 94.1 fL (80.0-100.0); Mean Platelet Volume 8.5; Platelet Count 241 k/uL (150-450); RBC 4.14 m/uL (4.30-5.90); RDW 13.3 % (11.5-15.5); WBC 8.6 k/uL (3.8-10.6)
[2023-09-08 10:17] LABS: African American GFR (CKD) >90 (>60 ml/min/1.73 sqM); Anion Gap 7 mmol/L; Blood Urea Nitrogen 18 mg/dL (9-20); Calcium 9.4 mg/dL (8.4-10.2); Carbon Dioxide 28 mmol/L (22-30); Chloride 104 mmol/L (98-107); Glucose 240 mg/dL (74-99); Magnesium 1.4 mg/dL (1.6-2.3); Non-African American GFR(CKD) >90 (>60 ml/min/1.73 sqM); Potassium 4.1 mmol/L (3.5-5.1); Sodium 139 mmol/L (137-145)
[2023-09-08 12:06] LABS: Glucose,Whole Blood 189 mg/dL (70-110)
[2023-09-08] MEDS: LIDOCAINE 4% PATCH TOPICAL SCH (12:38)
[2023-09-08] MEDS: MAGNESIUM SULFATE-D5W PMX 1 GM in DEXTROSE/WATER 1 100ML.BAG IVPB SCH (13:08)
--- NOTE | 2023-09-08 13:42 | P.PN ---
Subjective Progress Note Date: 09/08/23 Hospital course: Patient is a very pleasant 57-year-old male with a past medical history of diabetes mellitus, hypertension, hyperlipidemia, chronic systolic heart failure status post ICD, coronary disease status post multiple stents. He presented to the ED on 09/03/2023 with a chief complaint of right flank pain. Patient underwent evaluation in the emergency department.. Laboratory analysis was remarkable for WBC was 18.0, Total bilirubin 2.2, Urine showed 2+ ketones and moderate blood. His CT abdomen pelvis showed nonobstructing bilateral renal stones measuring up to 7 mm in the left lower lobe. He was admitted under our services for intractable abdominal pain and was started on a clear liquid diet, normal saline, and IV narcotic medications for pain. General surgery and urology were consulted. On 09/06/2023, patient developed reports of chest pain and an EKG was obtained showing normal sinus rhythm at 91 bpm with T wave inversion in leads I, aVL and V4 through V6. A troponin was obtained resulting at 1.230 with repeat troponin of 1.100. Cardiology was consulted and patient was taken for cardiac catheterization which reported patent stent in the mid RCA with intermediate to severe disease involving the PLV branch of the RCA and chronic total occlusion of the left circumflex with patent stent in the mid LAD with mild disease involving the distal LAD appearing to be unchanged per cardiology report. Community Marketing Coordinator recommending continuing of medical management at this point and following up with echocardiogram to assess aortic valve stating they will consider PCI of the PLV branch if patient remains symptomatic on maximized medical management. Echocardiogram revealing severely reduced EF of 25 to 30% with severe pulmonary hypertension and severe left atrial enlargement. Physical exam: Patient was seen and fully evaluated at bedside this morning. He is currently reporting pain to upper back/neck described as spasmy with sharp shooting pains downward his spine. Patient reports this is an acute on chronic pain and currently sees a painting instructor for lower lumbar spinal injections. Order placed for lidocaine patch. Vital signs reviewed and stable. General: Nontoxic, no distress and appears stated age. Derm: Skin warm and dry, normal coloration for ethnicity. Head: Atraumatic, normocephalic and symmetric. Eyes: EOMs intact, no lid lag, and anicteric sclera Mouth: no lip lesions, mucus membranes moist Cardiovascular: regular rate and rhythm with normal S1S2, no murmur, positive posterior tibial pulses bilaterally, and cap refill < 2 seconds. Lungs: Respirations even, regular, and unlabored on room air. Lungs CTA bilaterally, no rhonchi, no rales, no wheezing, and no accessory muscle usage. Abdominal: soft, nontender to palpation, no guarding, no appreciable organomegaly Ext: ROM intact. No gross muscle atrophy, no edema, no contractures Neuro: Speech clear, face symmetrical and CN II-XII grossly intact with no noted focal neuro deficits Psych: Alert and oriented to person, place, time, and situation. Appropriate and pleasant affect. Assessment and Plan of Care: NSTEMI Ischemic cardiomyopathy status post AICD Valvular heart disease with bicuspid aortic valve and severe aortic stenosis -EKG was obtained showing normal sinus rhythm at 91 bpm with T wave inversion in leads I, aVL and V4 through V6. -Troponin resulting at 1.230 with repeat troponin of 1.100. -Cardiology following and took patient for cardiac catheterization on 09/06/2023 which reported patent stent in the mid RCA with intermediate to severe disease involving the PLV branch of the RCA and chronic total occlusion of the left circumflex with patent stent in the mid LAD with mild disease involving the distal LAD appearing to be unchanged per cardiology report. -Echocardiogram revealing severely reduced EF of 25 to 30% with severe pulmonary hypertension and severe left atrial enlargement. -Continue aspirin 81 mg daily, atorvastatin 80 mg nightly, lisinopril 5 mg daily, metoprolol 100 mg daily, and as needed sublingual nitroglycerin 0.4 mg as needed for chest pain. Intractable abdominal pain due to 4 mm right sided ureteric stone Microscopic hematuria -Urology note reviewed: No surgical intervention warranted at this point in time - Dilaudid 0.5 mg every 3 hours as needed for pain -normal saline 75 cc an hour - consistent carb diet Chronic cholecystitis possible gallstone vs polyp -Surgery note reviewed: Outpatient cholecystectomy when medically stable Hypertension Chronic systolic heart failure Coronary artery disease status post stents Hyperlipidemia -Continue aspirin 81 mg daily, atorvastatin 80 mg nightly, lisinopril 5 mg daily, and metoprolol 100 mg daily Diabetes mellitus - Hold metformin and glimepride and continue with glycemic protocol with NovoLog sliding scale. - A1C 7.3 Leukocytosis, resolved Hypomagnesemia Magnesium 1.4. Orders placed for mag sulfate 2 g IVPB. Data Reviewed: -Labs reviewed from today include CBC and BMP unremarkable. Magnesium low at 1.4. -Vital signs reviewed. Blood pressure 105/71, heart rate 89, respiratory rate 16, temp 98.2 F, and SpO2 of 95% on room air. Initial plan was for discharge this morning as patient was medically cleared, cleared by urology, and cleared by cardiology, however was notified by RN that patient reported pain again in his right upper quadrant and right scapular r egion shortly after eating and is concerned that gallbladder is the cause of these pains. Discussed with general surgery, patient to remain hospitalized and they are planning to take patient for laparoscopic cholecystectomy on 09/11/2023. CODE STATUS: Full code DVT prophylaxis: Heparin Anticipated discharge date: Pending Clinical Course Anticipated discharge place: Pending Clinical Course Patient was seen independently by Nurse Pracitioner. This document was prepared using [employer] dictation software. Please allow for errors in helmet hat brim cutter, while rare they do occur. Asif Hernandez NP rendered care for this patient independently, reviewed the findings and plan as documented in the note above. I did not physically speak with or examine the patient on this date. Objective - Vital Signs Vital signs: Vital Signs Temp 98 F 09/08/23 04:00 Pulse 79 09/08/23 04:00 Resp 16 09/08/23 04:00 BP 92/59 09/08/23 04:00 Pulse Ox 92 L 09/08/23 04:00 FiO2 Intake & Output 09/07/23 09/08/23 09/08/23 18:59 06:59 18:59 Intake Total 236 118 Output Total 750 1700 Balance -514 -1582 Intake: Oral 236 118 Output: Urine 750 1700 Other: Voiding Method Toilet Toilet # Voids 1 2 - Labs CBC & Chem 7: 09/09/23 07:13 09/09/23 07:13 Labs: Abnormal Lab Results - Last 24 Hours (Table) 09/07/23 09/07/23 09/07/23 Range/Units 07:56 07:56 11:40 RBC 3.83 L (4.30-5.90) m/uL Hgb 12.0 L (13.0-17.5) gm/dL Hct 36.8 L (39.0-53.0) % Chloride 112 H (98-107) mmol/L Glucose 148 H (74-99) mg/dL POC Glucose (mg/dL) 166 H (70-110) mg/dL Total Bilirubin 2.8 H (0.2-1.3) mg/dL Total Protein 5.7 L (6.3-8.2) g/dL Albumin 3.2 L (3.5-5.0) g/dL 09/07/23 09/07/23 09/08/23 Range/Units 16:46 20:00 06:14 RBC (4.30-5.90) m/uL Hgb (13.0-17.5) gm/dL Hct (39.0-53.0) % Chloride (98-107) mmol/L Glucose (74-99) mg/dL POC Glucose (mg/dL) 140 H 209 H 134 H (70-110) mg/dL Total Bilirubin (0.2-1.3) mg/dL Total Protein (6.3-8.2) g/dL Albumin (3.5-5.0) g/dL
[2023-09-08 16:23] LABS: Glucose,Whole Blood 166 mg/dL (70-110)
--- NOTE | 2023-09-08 16:32 | P.PN ---
Subjective Progress Note Date: 09/08/23 CHIEF COMPLAINT: Abdominal pain HISTORY OF PRESENT ILLNESS: Patient was initially to be discharged today. Patient initially evaluated this morning and abdominal pain had resolved. However, patient had right-sided abdominal pain after eating this afternoon. He was concerned that it was his gallbladder and concerned about going home. Afebrile. WBC 8.6 Hgb 13.3 platelets 241 sodium is 139 potassium 4.1 creatinine 0.89 magnesium 1.4 PHYSICAL EXAM: VITAL SIGNS: Reviewed. GENERAL: Well-developed in no acute distress. ABDOMEN: Soft. Nondistended. Nontender NEUROLOGIC: Alert and oriented. Cranial nerves II through XII grossly intact. ASSESSMENT: 1. Recurrent episode of right upper quadrant abdominal pain after eating. Concerns for cholecystitis 2. Chronic cholecystitis. Ultrasound reporting 1.1 cm nonshadowing stone versus gallbladder wall polyp near the neck of the gallbladder. Reporting no findings of acute cholecystitis 3. Right sided kidney stones 4. Hypomagnesemia. Magnesium being replaced PLAN: -Recommend to keep patient and plan for laparoscopic cholecystectomy on Monday with Dr. Rees -add low fat diet Physician Community Relations Liaison note has been reviewed by physician. Signing provider agrees with the documented findings, assessment, and plan of care. Objective - Vital Signs Vital signs: Vital Signs Temp 98.2 F 09/08/23 08:11 Pulse 89 09/08/23 08:11 Resp 16 09/08/23 08:11 BP 105/71 09/08/23 08:11 Pulse Ox 95 09/08/23 08:11 FiO2 Intake & Output 09/07/23 09/08/23 09/08/23 18:59 06:59 18:59 Intake Total 236 118 Output Total 750 1700 Balance -514 -1582 Intake: Oral 236 118 Output: Urine 750 1700 Other: Voiding Method Toilet Toilet Toilet # Voids 1 2 - Labs CBC & Chem 7: 09/08/23 09:00 09/08/23 09:00 Labs: Abnormal Lab Results - Last 24 Hours (Table) 09/07/23 09/07/23 09/08/23 Range/Units 16:46 20:00 06:14 RBC (4.30-5.90) m/uL Glucose (74-99) mg/dL POC Glucose (mg/dL) 140 H 209 H 134 H (70-110) mg/dL Magnesium (1.6-2.3) mg/dL 09/08/23 09/08/23 Range/Units 09:00 09:00 RBC 4.14 L (4.30-5.90) m/uL Glucose 240 H (74-99) mg/dL POC Glucose (mg/dL) (70-110) mg/dL Magnesium 1.4 L (1.6-2.3) mg/dL
[2023-09-08 20:28] LABS: Glucose,Whole Blood 193 mg/dL (70-110)
--- NOTE | 2023-09-08 22:04 | CONS ---
CONSULTATION HISTORY OF PRESENT ILLNESS: Chase is a 57-year-old gentleman, who is admitted to hospital initially with abdominal discomfort and interscapular chest pain. He has renal stones and gallstones. The patient was seen by my associate, Dr. Moore. Has known ischemic cardiomyopathy, status post ICD implant. Has bicuspid aortic valve with aortic stenosis and regurgitation and he sees Dr. Yañez regularly in the office. Following discomfort between shoulder blades, he had elevated troponin and underwent cardiac catheterization that revealed stable CAD. He had episodes of shortness of breath and was given IV Lasix with significant improvement in his symptoms. At the time of my evaluation this morning, he is lying comfortably in bed and I asked him to ambulate and see how he does. I am going to switch his Lasix to p.o. PHYSICAL EXAMINATION: GENERAL: Comfortable at rest. VITAL SIGNS: Stable. CHEST: Reveals good air entry bilaterally. HEART: Reveals first and second heart sounds. A grade 3/6 ejection systolic murmur in the aortic area. ABDOMEN: Soft. EXTREMITIES: Did not reveal any edema. Peripheral pulses are felt. LABORATORY DATA: Hemoglobin is 13.3. Potassium is 4.1. Creatinine is 0.8. BNP was elevated. ASSESSMENT AND PLAN: 1. Acute exacerbation of chronic systolic heart failure. 2. Severe aortic stenosis thought to be low-flow gradient. 3. Coronary artery disease, on medical therapy, status post cardiac catheterization on this admission that revealed a patent stent in the mid RCA, chronically occluded circumflex coronary artery and a patent stent within the mid LAD and the patient was advised medical therapy. I am going to continue with Toprol-XL 100 mg daily, Zestril 5 mg daily, switch the nitroglycerin paste to Imdur and Lasix can be changed to p.o. Ambulate him and if he is feeling well, discharge him home with outpatient followup with Dr. Yañez. MMDEANNEL / IJN: [id number] /
[2023-09-09 06:23] LABS: Glucose,Whole Blood 166 mg/dL (70-110)
[2023-09-09 07:57] LABS: HGB 12.9 gm/dL (13.0-17.5); Mean Platelet Volume 8.6; Platelet Count 238 k/uL (150-450); RBC 4.15 m/uL (4.30-5.90); RDW 13.4 % (11.5-15.5); WBC 9.6 k/uL (3.8-10.6)
[2023-09-09 08:02] LABS: African American GFR (CKD) >90 (>60 ml/min/1.73 sqM); Anion Gap 6 mmol/L; Blood Urea Nitrogen 18 mg/dL (9-20); Calcium 9.1 mg/dL (8.4-10.2); Carbon Dioxide 24 mmol/L (22-30); Chloride 108 mmol/L (98-107); Glucose 172 mg/dL (74-99); Magnesium 1.7 mg/dL (1.6-2.3); Non-African American GFR(CKD) >90 (>60 ml/min/1.73 sqM); Potassium 4.4 mmol/L (3.5-5.1); Sodium 138 mmol/L (137-145)
[2023-09-09] MEDS: ENOXAPARIN 40 MG/0.4 ML SYRINGE SQ SCH (08:57)
--- NOTE | 2023-09-09 10:44 | P.PN ---
Subjective Progress Note Date: 09/09/23 The patient is in the hospital with abdominal pain. He apparently is going to have a cholecystectomy on Monday. He also has a ureteral calculus on the right. He is asymptomatic from that. Objective - Vital Signs Vital signs: Vital Signs Temp 98.7 F 09/09/23 04:00 Pulse 92 09/09/23 04:00 Resp 18 09/09/23 04:00 BP 98/68 09/09/23 04:00 Pulse Ox 92 L 09/09/23 04:00 FiO2 Intake & Output 09/08/23 09/09/23 09/09/23 18:59 06:59 18:59 Intake Total 360 120 180 Output Total 1900 1150 Balance -1540 -1030 180 Weight 86.5 kg Intake: Oral 360 120 180 Output: Urine 1900 1150 Other: Voiding Method Toilet Toilet # Bowel Movements 0 0 - Labs CBC & Chem 7: 09/09/23 07:13 09/09/23 07:13 Labs: Abnormal Lab Results - Last 24 Hours (Table) 09/08/23 09/08/23 09/08/23 Range/Units 12:02 16:20 20:26 RBC (4.30-5.90) m/uL Hgb (13.0-17.5) gm/dL Chloride (98-107) mmol/L Glucose (74-99) mg/dL POC Glucose (mg/dL) 189 H 166 H 193 H (70-110) mg/dL 09/09/23 09/09/23 09/09/23 Range/Units 06:20 07:13 07:13 RBC 4.15 L (4.30-5.90) m/uL Hgb 12.9 L (13.0-17.5) gm/dL Chloride 108 H (98-107) mmol/L Glucose 172 H (74-99) mg/dL POC Glucose (mg/dL) 166 H (70-110) mg/dL Assessment and Plan Assessment: Impression: Cholecystitis, right ureteral calculus Recommendations: The patient will have a cholecystectomy on Monday. I will obtain a KUB to see if the ureteral stone is still present. He is not having pain from that.
--- NOTE | 2023-09-09 10:52 | P.PN ---
Subjective Progress Note Date: 09/09/23 HISTORY OF PRESENT ILLNESS: This is a 57-year-old male with a past medical history significant for coronary artery disease with previous stenting, ischemic cardiomyopathy, AICD implantation, hypertension, hyperlipidemia, valvular heart disease, bicuspid aortic valve with aortic stenosis and regurgitation, and diabetes. Patient follows in the office with Dr. Yañez. We have been asked to see the patient in consultation for chest pain. Patient examined at the bedside. Patient initially presented to the hospital with right sided abdominal pain. Patient was found to have right ureteral calculus. Patient is being followed by urology. Patient is requesting to attempt to pass the stone on his own. The patient developed discomfort this morning in between his shoulder blades which he states feels s imilar to when he required stenting in the past and cardiology was consulted for evaluation. EKG revealed sinus mechanism with no signs of acute ischemia. Troponin was drawn and resulted at 1.23. DIAGNOSTICS: - EKG reveals sinus mechanism with TWI laterally - Laboratory data: WBC 7.9. Hemoglobin 11.2. Platelet count 207. Sodium 140. Potassium 4.4. BUN 19. Creatinine 0.84. Troponin 1.230. - Current home cardiac medications include Lipitor 80 mg at night, metoprolol succinate 100 mg daily, Aldactone 25 mg daily, enalapril 2.5 mg daily. - Most recent echocardiogram obtained in February 2023 revealing EF 35%, severe , mild to moderate MR, moderate AR - Cardiac catheterization history: May 2020 revealing patent stent in the mid RCA. Intermediate disease involving the PLV branch of the RCA. Normal left main coronary artery. 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 Intermediate to severe lesion involving the mid LAD. Medical management was recommended. 09/06 patient seen and examined. Patient admits he is feeling short of breath and this is somewhat worse then previous. He has been receiving IV fluids. Repeat echo does show EF approximately 25-30% on personal review and does appear to have low flow low gradient severe aortic stenosis. He admits he has been having some shortness breath over the last few months. 09/08 Blood pressure 98/68, heart rate 79-92, pulse ox 92% on room air. Repeat blood work reveals hemoglobin 12.9, WBC 9.6. Potassium 4.4, creatinine 0.77. Patient states that he is undergoing gallbladder surgery on Monday. He states he has had ongoing problems with pain between his shoulder blades. Yesterday Nitropaste was transition to Imdur and Lasix IV to oral. PHYSICAL EXAM: VITAL SIGNS: Reviewed. GENERAL: Well-developed in no acute distress. HEENT: Head is normocephalic. Pupils are equal, round. Sclerae anicteric. Mucous membranes of the mouth are moist. Neck supple. No JVD or thyromegaly LUNGS: Respirations even and unlabored. Lungs essentially clear to auscultation bilaterally. HEART: Regular rate and rhythm. S1 and S2 heard. Systolic murmur noted. ABDOMEN: Soft. Nondistended. Nontender. EXTREMITIES: Normal range of motion. No clubbing or cyanosis. Peripheral pulses intact. No lower extremity edema NEUROLOGIC: Awake and alert. Oriented x 3. ASSESSMENT: Abdominal pain Right-sided ureteral calculus Non-STEMI Coronary artery disease with previous stenting Ischemic cardiomyopathy versus stress-induced cardiomyopathy History of AICD implantation Hypertension Hyperlipidemia Valvular heart disease including bicuspid aortic valve with severe , moderate AR, and mild to moderate MR Diabetes acute on chronic systolic heart failure Cholecystitis with plan for laparoscopic cholecystectomy on Monday PLAN: Patient underwent heart catheterization with stable CAD other than small caliber PLV branch. This may be patient registration representative of stress-induced cardiomyopathy with echo on personal review showing some more atypical hypokinesis with basal sparing. Regarding surgical intervention planned for Monday, patient is at increased risk for complications during the perioperative period secondary to cardiomyopathy, coronary artery disease, aortic stenosis. Patient is not currently in overt heart failure and cardiac catheterization has revealed stable CAD. No absolute contraindications for surgical intervention. Continue current cardiac medications Further recommendations as patient progresses Nurse practitioner note has been reviewed, I agree with documented findings and plan of care. Patient was seen and examined. Objective - Vital Signs Vital signs: Vital Signs Temp 98.7 F 09/09/23 04:00 Pulse 92 09/09/23 04:00 Resp 18 09/09/23 04:00 BP 98/68 09/09/23 04:00 Pulse Ox 92 L 09/09/23 04:00 FiO2 Intake & Output 09/08/23 09/09/23 09/09/23 18:59 06:59 18:59 Intake Total 360 120 180 Output Total 1900 1150 Balance -1540 -1030 180 Weight 86.5 kg Intake: Oral 360 120 180 Output: Urine 1900 1150 Other: Voiding Method Toilet Toilet # Bowel Movements 0 0 - Labs CBC & Chem 7: 09/09/23 07:13 09/09/23 07:13 Labs: Abnormal Lab Results - Last 24 Hours (Table) 09/08/23 09/08/23 09/08/23 Range/Units 09:00 09:00 12:02 RBC 4.14 L (4.30-5.90) m/uL Hgb (13.0-17.5) gm/dL Chloride (98-107) mmol/L Glucose 240 H (74-99) mg/dL POC Glucose (mg/dL) 189 H (70-110) mg/dL Magnesium 1.4 L (1.6-2.3) mg/dL 09/08/23 09/08/23 09/09/23 Range/Units 16:20 20:26 06:20 RBC (4.30-5.90) m/uL Hgb (13.0-17.5) gm/dL Chloride (98-107) mmol/L Glucose (74-99) mg/dL POC Glucose (mg/dL) 166 H 193 H 166 H (70-110) mg/dL Magnesium (1.6-2.3) mg/dL 09/09/23 09/09/23 Range/Units 07:13 07:13 RBC 4.15 L (4.30-5.90) m/uL Hgb 12.9 L (13.0-17.5) gm/dL Chloride 108 H (98-107) mmol/L Glucose 172 H (74-99) mg/dL POC Glucose (mg/dL) (70-110) mg/dL Magnesium (1.6-2.3) mg/dL
[2023-09-09 11:31] LABS: Glucose,Whole Blood 177 mg/dL (70-110)
--- NOTE | 2023-09-09 13:22 | P.PN ---
Subjective Progress Note Date: 09/09/23 Hospital course: Patient is a very pleasant 57-year-old male with a past medical history of diabetes mellitus, hypertension, hyperlipidemia, chronic systolic heart failure status post ICD, coronary disease status post multiple stents. He presented to the ED on 09/03/2023 with a chief complaint of right flank pain. Patient underwent evaluation in the emergency department.. Laboratory analysis was remarkable for WBC was 18.0, Total bilirubin 2.2, Urine showed 2+ ketones and moderate blood. His CT abdomen pelvis showed nonobstructing bilateral renal stones measuring up to 7 mm in the left lower lobe. He was admitted under our services for intractable abdominal pain and was started on a clear liquid diet, normal saline, and IV narcotic medications for pain. General surgery and urology were consulted. On 09/06/2023, patient developed reports of chest pain and an EKG was obtained showing normal sinus rhythm at 91 bpm with T wave inversion in leads I, aVL and V4 through V6. A troponin was obtained resulting at 1.230 with repeat troponin of 1.100. Cardiology was consulted and patient was taken for cardiac catheterization which reported patent stent in the mid RCA with intermediate to severe disease involving the PLV branch of the RCA and chronic total occlusion of the left circumflex with patent stent in the mid LAD with mild disease involving the distal LAD appearing to be unchanged per cardiology report. Chipper recommending continuing of medical management at this point and following up with echocardiogram to assess aortic valve stating they will consider PCI of the PLV branch if patient remains symptomatic on maximized medical management. Echocardiogram revealing severely reduced EF of 25 to 30% with severe pulmonary hypertension and severe left atrial enlargement. Initial plan was for discharge 09/08/23 as patient was medically cleared, cleared by urology, and cleared by cardiology, however notified by RN that patient reported pain returned in his right upper quadrant and right scapular region shortly after eating and is concerned that gallbladder is the cause of these pains. Discussed with general surgery, they recommended patient to remain hospitalized and they are planning to take patient for laparoscopic cho lecystectomy on 09/11/2023. Physical exam: Patient was seen and fully evaluated at bedside this morning. He reports continued intermittent pain to upper back and beneath right scapula. He denies having any headache, lightheadedness, dizziness, palpitations, shortness of breath, or experiencing any other complaints at this time. Vital signs reviewed and stable. General: Nontoxic, no distress and appears stated age. Derm: Skin warm and dry, normal coloration for ethnicity. Head: Atraumatic, normocephalic and symmetric. Eyes: EOMs intact, no lid lag, and anicteric sclera Mouth: no lip lesions, mucus membranes moist Cardiovascular: regular rate and rhythm with normal S1S2, no murmur, positive posterior tibial pulses bilaterally, and cap refill < 2 seconds. Lungs: Respirations even, regular, and unlabored on room air. Lungs CTA bilaterally, no rhonchi, no rales, no wheezing, and no accessory muscle usage. Abdominal: soft, nontender to palpation, no guarding, no appreciable organomegaly Ext: ROM intact. No gross muscle atrophy, no edema, no contractures Neuro: Speech clear, face symmetrical and CN II-XII grossly intact with no noted focal neuro deficits Psych: Alert and oriented to person, place, time, and situation. Appropriate and pleasant affect. Assessment and Plan of Care: NSTEMI Ischemic cardiomyopathy status post AICD Valvular heart disease with bicuspid aortic valve and severe aortic stenosis -EKG was obtained showing normal sinus rhythm at 91 bpm with T wave inversion in leads I, aVL and V4 through V6. -Troponin resulting at 1.230 with repeat troponin of 1.100. -Cardiology following and took patient for cardiac catheterization on 09/06/2023 which reported patent stent in the mid RCA with intermediate to severe disease involving the PLV branch of the RCA and chronic total occlusion of the left circumflex with patent stent in the mid LAD with mild disease involving the distal LAD appearing to be unchanged per cardiology report. -Echocardiogram revealing severely reduced EF of 25 to 30% with severe pulmonary hypertension and severe left atrial enlargement. -Continue aspirin 81 mg daily, atorvastatin 80 mg nightly, lisinopril 5 mg daily, metoprolol 100 mg daily, and as needed sublingual nitroglycerin 0.4 mg as needed for chest pain. Intractable abdominal pain due to 4 mm right sided ureteric stone Microscopic hematuria -Urology note reviewed: No surgical intervention warranted at this point in time -Dilaudid 0.5 mg every 3 hours as needed for pain -normal saline 75 cc an hour -consistent carb diet Chronic cholecystitis possible gallstone vs polyp -Surgery evaluated planning to take patient for laparoscopic cholecystectomy on 09/11/2023. Hypertension Chronic systolic heart failure Coronary artery disease status post stents Hyperlipidemia -Continue aspirin 81 mg daily, atorvastatin 80 mg nightly, lisinopril 5 mg daily, and metoprolol 100 mg daily Diabetes mellitus - Hold metformin and glimepride and continue with glycemic protocol with NovoLog sliding scale. - A1C 7.3 Leukocytosis, resolved Hypomagnesemia Magnesium 1.7. Orders placed for mag sulfate 2 g IVPB. Data Reviewed: -Labs reviewed. CBC showing stable normocytic anemia with hemoglobin of 12.9. BMP showing mild hyperchloremia with chloride of 108 otherwise normal findings. Blood glucose 172. Magnesium 1.7. -Vital signs reviewed. Blood pressure 98/68, heart rate 92, respiratory rate 18, temp 98.7 F, and SpO2 of 92% on room air. CODE STATUS: Full code DVT prophylaxis: Heparin Anticipated discharge date: Pending Clinical Course Anticipated discharge place: Pending Clinical Course Patient was seen independently by Nurse Pracitioner. This document was prepared using [employer] dictation software. Please allow for errors in cardiac monitor, while rare they do occur. Asif Hernandez NP rendered care for this patient independently, reviewed the findings and plan as documented in the note above. I did not physically speak with or examine the patient on this date. Objective - Vital Signs Vital signs: Vital Signs Temp 98.7 F 09/09/23 04:00 Pulse 92 09/09/23 04:00 Resp 18 09/09/23 04:00 BP 98/68 09/09/23 04:00 Pulse Ox 92 L 09/09/23 04:00 FiO2 Intake & Output 09/08/23 09/09/23 09/09/23 18:59 06:59 18:59 Intake Total 360 120 Output Total 1900 1150 Balance -1540 -1030 Weight 86.5 kg Intake: Oral 360 120 Output: Urine 1900 1150 Other: Voiding Method Toilet Toilet # Bowel Movements 0 0 - Labs CBC & Chem 7: 09/09/23 07:13 09/09/23 07:13 Labs: Abnormal Lab Results - Last 24 Hours (Table) 09/08/23 09/08/23 09/08/23 Range/Units 09:00 09:00 12:02 RBC 4.14 L (4.30-5.90) m/uL Glucose 240 H (74-99) mg/dL POC Glucose (mg/dL) 189 H (70-110) mg/dL Magnesium 1.4 L (1.6-2.3) mg/dL 09/08/23 09/08/23 09/09/23 Range/Units 16:20 20:26 06:20 RBC (4.30-5.90) m/uL Glucose (74-99) mg/dL POC Glucose (mg/dL) 166 H 193 H 166 H (70-110) mg/dL Magnesium (1.6-2.3) mg/dL
--- NOTE | 2023-09-09 14:58 | XR ---
EXAMINATION TYPE: XR KUB DATE OF EXAM: 09/09/2023 Comparison: CT 09/04/2023 Clinical History: 57-year-old male Ureteral calculus right Findings: Left-sided AICD generator with right ventricular lead. Coronary sinus stent. Lung bases appear clear. No evidence for free intraperitoneal air. No dilated small bowel or air-fluid levels. There is mild stool throughout the abdomen. Surgical clips left side of the pelvis. Mild degenerative change of bot h hips. Suspect a 5 mm right renal calculus. Impression: 5 mm nonobstructive right renal stone. A potential distal right ureteral stone is not well depicted r adiographically. Mild stool burden
[2023-09-09 16:35] LABS: Glucose,Whole Blood 283 mg/dL (70-110)
--- NOTE | 2023-09-09 18:06 | P.PN ---
Subjective Progress Note Date: 09/09/23 Patient reports stabbing pain of the upper back on the left-hand side. Incidentally, patient has kidney stones. Reports a significant surgical history including umbilical hernia repair, perforated diverticulitis with colostomy creation reversal. He reports occasional right upper quadrant abdominal pain. Abdomen: No peritonitis. Reports: CT of the abdomen pelvis demonstrates gallstones. Ultrasound of gallbladder report demonstrates 1 cm gallstone. Plan: 1. Clinical symptoms overlap with symptomatic gallstones. Cholecystectomy described. 2. With his pre-existing history of multiple abdominal surgeries, he is at elevated risk for complications. Objective - Vital Signs Vital signs: Vital Signs Temp 98.1 F 09/09/23 08:00 Pulse 84 09/09/23 12:00 Resp 18 09/09/23 12:00 BP 101/66 09/09/23 12:00 Pulse Ox 95 09/09/23 12:00 FiO2 Intake & Output 09/08/23 09/09/23 09/09/23 18:59 06:59 18:59 Intake Total 360 120 180 Output Total 1900 1150 1000 Balance -1540 -1030 -820 Weight 86.5 kg Intake: Oral 360 120 180 Output: Urine 1900 1150 1000 Other: Voiding Method Toilet Toilet # Bowel Movements 0 0 - Labs CBC & Chem 7: 09/09/23 07:13 09/09/23 07:13 Labs: Abnormal Lab Results - Last 24 Hours (Table) 09/08/23 09/09/23 09/09/23 Range/Units 20:26 06:20 07:13 RBC 4.15 L (4.30-5.90) m/uL Hgb 12.9 L (13.0-17.5) gm/dL Chloride (98-107) mmol/L Glucose (74-99) mg/dL POC Glucose (mg/dL) 193 H 166 H (70-110) mg/dL 09/09/23 09/09/23 09/09/23 Range/Units 07:13 11:29 16:32 RBC (4.30-5.90) m/uL Hgb (13.0-17.5) gm/dL Chloride 108 H (98-107) mmol/L Glucose 172 H (74-99) mg/dL POC Glucose (mg/dL) 177 H 283 H (70-110) mg/dL
[2023-09-09] MEDS: MAGNESIUM SULFATE-D5W PMX 1 GM in DEXTROSE/WATER 1 100ML.BAG IVPB SCH (18:41)
[2023-09-09 20:06] LABS: Glucose,Whole Blood 165 mg/dL (70-110)
[2023-09-10 06:31] LABS: Glucose,Whole Blood 147 mg/dL (70-110)
--- NOTE | 2023-09-10 09:34 | P.PN ---
Subjective Progress Note Date: 09/10/23 the patient is in the hospital both ureteral and gallbladder stones. It appears as if the ureteral stone this past base and a KUB obtained yesterday. He is to have gallbladder surgery tomorrow. Objective - Vital Signs Vital signs: Vital Signs Temp 98.5 F 09/10/23 04:00 Pulse 83 09/10/23 04:00 Resp 18 09/10/23 04:00 BP 97/59 09/10/23 04:00 Pulse Ox 96 09/10/23 04:00 FiO2 Intake & Output 09/09/23 09/10/23 09/10/23 18:59 06:59 18:59 Intake Total 360 200 222 Output Total 1000 Balance -640 200 222 Intake: Oral 360 200 222 Output: Urine 1000 Other: Voiding Method Toilet # Voids 1 - Labs CBC & Chem 7: 09/09/23 07:13 09/09/23 07:13 Labs: Abnormal Lab Results - Last 24 Hours (Table) 09/09/23 09/09/23 09/09/23 Range/Units 11:29 16:32 20:05 POC Glucose (mg/dL) 177 H 283 H 165 H (70-110) mg/dL 09/10/23 Range/Units 06:26 POC Glucose (mg/dL) 147 H (70-110) mg/dL Assessment and Plan Assessment: impression: Right ureteral stone probably passed. Recommendations I explained the patient that the stone could still be there and we just could not see it on KUB however since he is asymptomatic and nothing is visualized I would do nothing further. If he has further pain please let us know.
--- NOTE | 2023-09-10 10:54 | P.PN ---
Subjective Progress Note Date: 09/10/23 HISTORY OF PRESENT ILLNESS: This is a 57-year-old male with a past medical history significant for coronary artery disease with previous stenting, ischemic cardiomyopathy, AICD implantation, hypertension, hyperlipidemia, valvular heart disease, bicuspid aortic valve with aortic stenosis and regurgitation, and diabetes. Patient follows in the office with Dr. Yañez. We have been asked to see the patient in consultation for chest pain. Patient examined at the bedside. Patient initially presented to the hospital with right sided abdominal pain. Patient was found to have right ureteral calculus. Patient is being followed by urology. Patient is requesting to attempt to pass the stone on his own. The patient developed discomfort this morning in between his shoulder blades which he states feels s imilar to when he required stenting in the past and cardiology was consulted for evaluation. EKG revealed sinus mechanism with no signs of acute ischemia. Troponin was drawn and resulted at 1.23. DIAGNOSTICS: - EKG reveals sinus mechanism with TWI laterally - Laboratory data: WBC 7.9. Hemoglobin 11.2. Platelet count 207. Sodium 140. Potassium 4.4. BUN 19. Creatinine 0.84. Troponin 1.230. - Current home cardiac medications include Lipitor 80 mg at night, metoprolol succinate 100 mg daily, Aldactone 25 mg daily, enalapril 2.5 mg daily. - Most recent echocardiogram obtained in February 2023 revealing EF 35%, severe , mild to moderate MR, moderate AR - Cardiac catheterization history: May 2020 revealing patent stent in the mid RCA. Intermediate disease involving the PLV branch of the RCA. Normal left main coronary artery. 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 Intermediate to severe lesion involving the mid LAD. Medical management was recommended. 09/06 patient seen and examined. Patient admits he is feeling short of breath and this is somewhat worse then previous. He has been receiving IV fluids. Repeat echo does show EF approximately 25-30% on personal review and does appear to have low flow low gradient severe aortic stenosis. He admits he has been having some shortness breath over the last few months. 09/08 Blood pressure 98/68, heart rate 79-92, pulse ox 92% on room air. Repeat blood work reveals hemoglobin 12.9, WBC 9.6. Potassium 4.4, creatinine 0.77. Patient states that he is undergoing gallbladder surgery on Monday. He states he has had ongoing problems with pain between his shoulder blades. Yesterday Nitropaste was transition to Imdur and Lasix IV to oral. 09/09 Patient is seen today in follow-up. He states he continues to have pain in his shoulders related to his oral intake. Blood pressure 97/59, heart rate 83, pulse ox 96% on room air. Patient is scheduled for laparoscopic cholecystectomy on Monday. PHYSICAL EXAM: VITAL SIGNS: Reviewed. GENERAL: Well-developed in no acute distress. HEENT: Head is normocephalic. Pupils are equal, round. Sclerae anicteric. Mucous membranes of the mouth are moist. Neck supple. No JVD or thyromegaly LUNGS: Respirations even and unlabored. Lungs essentially clear to auscultation bilaterally. HEART: Regular rate and rhythm. S1 and S2 heard. Systolic murmur noted. ABDOMEN: Soft. Nondistended. Nontender. EXTREMITIES: Normal range of motion. No clubbing or cyanosis. Peripheral pulses intact. No lower extremity edema NEUROLOGIC: Awake and alert. Oriented x 3. ASSESSMENT: Abdominal pain Right-sided ureteral calculus Non-STEMI Coronary artery disease with previous stenting Ischemic cardiomyopathy versus stress-induced cardiomyopathy History of AICD implantation Hypertension Hyperlipidemia Valvular heart disease including bicuspid aortic valve with severe , moderate AR, and mild to moderate MR Diabetes acute on chronic systolic heart failure Cholecystitis with plan for laparoscopic cholecystectomy on Monday PLAN: Regarding laparoscopic cholecystectomy on Monday, patient is at increased risk for complications during the perioperative period secondary to cardiomyopathy, coronary artery disease, aortic stenosis. Patient is not currently in overt heart failure and cardiac catheterization has revealed stable CAD. No absolute contraindications for surgical intervention. Continue current cardiac medications Further recommendations as patient progresses Nurse practitioner note has been reviewed, I agree with documented findings and plan of care. Patient was seen and examined. Objective - Vital Signs Vital signs: Vital Signs Temp 98.5 F 09/10/23 04:00 Pulse 83 09/10/23 04:00 Resp 18 09/10/23 04:00 BP 97/59 09/10/23 04:00 Pulse Ox 96 09/10/23 04:00 FiO2 Intake & Output 09/09/23 09/10/23 09/10/23 18:59 06:59 18:59 Intake Total 360 200 Output Total 1000 Balance -640 200 Intake: Oral 360 200 Output: Urine 1000 Other: Voiding Method Toilet # Voids 1 - Labs CBC & Chem 7: 09/09/23 07:13 09/09/23 07:13 Labs: Abnormal Lab Results - Last 24 Hours (Table) 09/09/23 09/09/23 09/09/23 Range/Units 11:29 16:32 20:05 POC Glucose (mg/dL) 177 H 283 H 165 H (70-110) mg/dL 09/10/23 Range/Units 06:26 POC Glucose (mg/dL) 147 H (70-110) mg/dL
[2023-09-10 11:19] LABS: Glucose,Whole Blood 197 mg/dL (70-110)
--- NOTE | 2023-09-10 12:32 | P.PN ---
Subjective Progress Note Date: 09/10/23 patient still has complaints of symptomatically. Patient feels pain in his back when he eats. On exam vital signs appear stable. Abdomen soft. History of sent back lithiasis. Patient was scheduled for laparoscopic cholecystectomy. Patient is aware the risks of conversion to the open procedure. Patient's extensive surgical history with previous diverticular perforation with colostomy and subsequent reversal colostomy and repair of incisional hernia. Objective - Vital Signs Vital signs: Vital Signs Temp 98.0 F 09/10/23 08:00 Pulse 83 09/10/23 08:00 Resp 18 09/10/23 08:00 BP 90/64 09/10/23 08:00 Pulse Ox 95 09/10/23 08:00 FiO2 Intake & Output 09/09/23 09/10/23 09/10/23 18:59 06:59 18:59 Intake Total 360 200 222 Output Total 1000 Balance -640 200 222 Intake: Oral 360 200 222 Output: Urine 1000 Other: Voiding Method Toilet # Voids 1 1 - Labs CBC & Chem 7: 09/09/23 07:13 09/09/23 07:13 Labs: Abnormal Lab Results - Last 24 Hours (Table) 09/09/23 09/09/23 09/10/23 Range/Units 16:32 20:05 06:26 POC Glucose (mg/dL) 283 H 165 H 147 H (70-110) mg/dL 09/10/23 Range/Units 11:17 POC Glucose (mg/dL) 197 H (70-110) mg/dL
--- NOTE | 2023-09-10 12:36 | P.PN ---
Subjective Progress Note Date: 09/10/23 Hospital course: Patient is a very pleasant 57-year-old male with a past medical history of diabetes mellitus, hypertension, hyperlipidemia, chronic systolic heart failure status post ICD, coronary disease status post multiple stents. He presented to the ED on 09/03/2023 with a chief complaint of right flank pain. Patient underwent evaluation in the emergency department.. Laboratory analysis was remarkable for WBC was 18.0, Total bilirubin 2.2, Urine showed 2+ ketones and moderate blood. His CT abdomen pelvis showed nonobstructing bilateral renal stones measuring up to 7 mm in the left lower lobe. He was admitted under our services for intractable abdominal pain and was started on a clear liquid diet, normal saline, and IV narcotic medications for pain. General surgery and urology were consulted. On 09/06/2023, patient developed reports of chest pain and an EKG was obtained showing normal sinus rhythm at 91 bpm with T wave inversion in leads I, aVL and V4 through V6. A troponin was obtained resulting at 1.230 with repeat troponin of 1.100. Cardiology was consulted and patient was taken for cardiac catheterization which reported patent stent in the mid RCA with intermediate to severe disease involving the PLV branch of the RCA and chronic total occlusion of the left circumflex with patent stent in the mid LAD with mild disease involving the distal LAD appearing to be unchanged per cardiology report. Kick Plate Installer recommending continuing of medical management at this point and following up with echocardiogram to assess aortic valve stating they will consider PCI of the PLV branch if patient remains symptomatic on maximized medical management. Echocardiogram revealing severely reduced EF of 25 to 30% with severe pulmonary hypertension and severe left atrial enlargement. Initial plan was for discharge 09/08/23 as patient was medically cleared, cleared by urology, and cleared by cardiology, however notified by RN that patient reported pain returned in his right upper quadrant and right scapular region shortly after eating and is concerned that gallbladder is the cause of these pains. Discussed with general surgery, they recommended patient to remain hospitalized and they are planning to take patient for laparoscopic cho lecystectomy on 09/11/2023. Physical exam: Patient was seen and fully evaluated at bedside this morning. He reports again having pain to upper back and beneath right scapula after eating breakfast this morning.. He denies having any headache, lightheadedness, dizziness, palpitations, shortness of breath, or experiencing any other complaints at this time. Vital signs reviewed and stable. General: Nontoxic, no distress and appears stated age. Derm: Skin warm and dry, normal coloration for ethnicity. Head: Atraumatic, normocephalic and symmetric. Eyes: EOMs intact, no lid lag, and anicteric sclera Mouth: no lip lesions, mucus membranes moist Cardiovascular: regular rate and rhythm with normal S1S2, systolic murmur, positive posterior tibial pulses bilaterally, and cap refill < 2 seconds. Lungs: Respirations even, regular, and unlabored on room air. Lungs CTA bilaterally, no rhonchi, no rales, no wheezing, and no accessory muscle usage. Abdominal: soft, nontender to palpation, no guarding, no appreciable organomegaly Ext: ROM intact. No gross muscle atrophy, no edema, no contractures Neuro: Speech clear, face symmetrical and CN II-XII grossly intact with no noted focal neuro deficits Psych: Alert and oriented to person, place, time, and situation. Appropriate and pleasant affect. Assessment and Plan of Care: NSTEMI Ischemic cardiomyopathy status post AICD Valvular heart disease with bicuspid aortic valve and severe aortic stenosis -EKG was obtained showing normal sinus rhythm at 91 bpm with T wave inversion in leads I, aVL and V4 through V6. -Troponin resulting at 1.230 with repeat troponin of 1.100. -Cardiology following and took patient for cardiac catheterization on 09/06/2023 which reported patent stent in the mid RCA with intermediate to severe disease involving the PLV branch of the RCA and chronic total occlusion of the left circumflex with patent stent in the mid LAD with mild disease involving the distal LAD appearing to be unchanged per cardiology report. -Echocardiogram revealing severely reduced EF of 25 to 30% with severe pulmonary hypertension and severe left atrial enlargement. -Continue aspirin 81 mg daily, atorvastatin 80 mg nightly, lisinopril 5 mg daily, metoprolol 100 mg daily, and as needed sublingual nitroglycerin 0.4 mg as needed for chest pain. Intractable abdominal pain due to 4 mm right sided ureteric stone Microscopic hematuria -Urology note reviewed: No surgical intervention warranted at this point in time. -Urologist ordered for repeat KUB for monitoring of renal stones, upon follow-up of x-ray showing 5 mm nonobstructive right renal stone with a potential distal right ureteral stone and mild stool burden. -Dilaudid 0.5 mg every 3 hours as needed for pain -normal saline 75 cc an hour -consistent carb diet Constipation -Order placed for lactulose 30 g p.o. x 1 dose and patient started on MiraLAX 17 g daily. Will monitor for resolution. Chronic cholecystitis possible gallstone vs polyp -Surgery evaluated planning to take patient for laparoscopic cholecystectomy tomorrow. -Cardiology provided clearance stating patient at increased risk for cardiac complications secondary to his cardiomyopathy, coronary artery disease, and aortic stenosis but stating no absolute contraindications for surgical intervention at this time from cardiac standpoint. Hypertension Chronic systolic heart failure Coronary artery disease status post stents Hyperlipidemia -Continue aspirin 81 mg daily, atorvastatin 80 mg nightly, lisinopril 5 mg daily, and metoprolol 100 mg daily Diabetes mellitus - Hold metformin and glimepride and continue with glycemic protocol with NovoLog sliding scale. - A1C 7.3 Leukocytosis, resolved Hypomagnesemia Magnesium 1.7 and was replaced, we will repeat magnesium levels tomorrow morning and replace any abnormal electrolyte values as indicated based upon these findings. Data Reviewed: -Labs reviewed. Blood glucose levels have ranged from 166-283 over the past 24 hours. -Vital signs reviewed. Blood pressure 90/64, heart rate 83, respiratory rate 18, temp 98.0 F, and SpO2 of 95% on room air. CODE STATUS: Full code DVT prophylaxis: Heparin Anticipated discharge date: Pending Clinical Course Anticipated discharge place: Pending Clinical Course Patient was seen independently by Nurse Pracitioner. This document was prepared using codetag dictation software. Please allow for errors in pattern cutter, while rare they do occur. Asif Hernandez NP rendered care for this patient independently, reviewed the findings and plan as documented in the note above. I did not physically speak with or examine the patient on this date. Objective - Vital Signs Vital signs: Vital Signs Temp 98.5 F 09/10/23 04:00 Pulse 83 09/10/23 04:00 Resp 18 09/10/23 04:00 BP 97/59 09/10/23 04:00 Pulse Ox 96 09/10/23 04:00 FiO2 Intake & Output 09/09/23 09/10/23 09/10/23 18:59 06:59 18:59 Intake Total 360 200 Output Total 1000 Balance -640 200 Intake: Oral 360 200 Output: Urine 1000 Other: Voiding Method Toilet # Voids 1 - Labs CBC & Chem 7: 09/09/23 07:13 09/09/23 07:13 Labs: Abnormal Lab Results - Last 24 Hours (Table) 09/09/23 09/09/23 09/09/23 Range/Units 07:13 07:13 11:29 RBC 4.15 L (4.30-5.90) m/uL Hgb 12.9 L (13.0-17.5) gm/dL Chloride 108 H (98-107) mmol/L Glucose 172 H (74-99) mg/dL POC Glucose (mg/dL) 177 H (70-110) mg/dL 09/09/23 09/09/23 09/10/23 Range/Units 16:32 20:05 06:26 RBC (4.30-5.90) m/uL Hgb (13.0-17.5) gm/dL Chloride (98-107) mmol/L Glucose (74-99) mg/dL POC Glucose (mg/dL) 283 H 165 H 147 H (70-110) mg/dL
[2023-09-10 16:11] LABS: Glucose,Whole Blood 164 mg/dL (70-110)
[2023-09-10] MEDS: LACTULOSE 20 GM/30 ML CUP PO ONE (16:28)
[2023-09-10 20:51] LABS: Glucose,Whole Blood 212 mg/dL (70-110)
[2023-09-11] MEDS: LACTATED RINGERS 1,000 ML IV SCH (05:59)
[2023-09-11] MEDS ORDERED: fentaNYL (PF) 50 MCG/ML 2 ML AMP IV PRN (06:00)
[2023-09-11 06:12] LABS: Glucose,Whole Blood 182 mg/dL (70-110)
[2023-09-11] MEDS: polyethylene glycoL 3350 17 GM POWD.PACK PO SCH (08:49)
[2023-09-11] MEDS: IV FLUID CONTINUATION 900 ML IV ONE (10:45)
[2023-09-11 10:47] LABS: HCT 39.8 % (39.0-53.0); HGB 12.9 gm/dL (13.0-17.5); MCH 30.6 pg (25.0-35.0); MCHC 32.3 g/dL (31.0-37.0); MCV 94.5 fL (80.0-100.0); Mean Platelet Volume 7.8; Platelet Count 243 k/uL (150-450); RBC 4.21 m/uL (4.30-5.90)
[2023-09-11] MEDS: ONDANSETRON 4 MG/2 ML VIAL IVP ONE (11:04)
[2023-09-11] MEDS: HEPARIN SODIUM,PORCINE 5,000 UNIT/ML 1 ML VIAL SQ ONE (11:04)
[2023-09-11 11:06] LABS: ALT 41 U/L (4-49); AST 35 U/L (17-59); African American GFR (CKD) >90 (>60 ml/min/1.73 sqM); Albumin 3.6 g/dL (3.5-5.0); Alkaline Phosphatase 81 U/L (38-126); Anion Gap 9 mmol/L; Blood Urea Nitrogen 25 mg/dL (9-20); Calcium 9.1 mg/dL (8.4-10.2); Carbon Dioxide 23 mmol/L (22-30); Chloride 108 mmol/L (98-107); Glucose 156 mg/dL (74-99); Magnesium 1.8 mg/dL (1.6-2.3); Non-African American GFR(CKD) >90 (>60 ml/min/1.73 sqM); Potassium 4.6 mmol/L (3.5-5.1); Sodium 140 mmol/L (137-145); Total Bilirubin 1.3 mg/dL (0.2-1.3); Total Protein 6.2 g/dL (6.3-8.2)
[2023-09-11 11:10] LABS: Glucose,Whole Blood 178 mg/dL (70-110)
[2023-09-11] MEDS ORDERED: LIDOCAINE 1% INJ 10MG/ML (20 ML MDV) ONE (12:20)
[2023-09-11] MEDS ORDERED: GLYCOPYRROLATE 0.2 MG/ML 2 ML VIAL ONE (12:20)
[2023-09-11] MEDS ORDERED: NEOSTIGMINE 1 MG/ML 10 ML VIAL ONE (12:20)
[2023-09-11] MEDS ORDERED: fentaNYL (PF) 50 MCG/ML 2 ML AMP ONE (12:20)
[2023-09-11] MEDS ORDERED: MIDAZOLAM 2 MG/2 ML VIAL ONE (12:20)
[2023-09-11] MEDS ORDERED: ETOMIDATE 2 MG/ML 10 ML VIAL ONE (12:20)
[2023-09-11] MEDS ORDERED: SUCCINYLCHOLINE CHLORIDE 200 MG/10 ML VIAL IV ONE (12:20)
[2023-09-11] MEDS ORDERED: ROCURONIUM 10 MG/ML (5 ML VIAL) IV ONE (12:20)
[2023-09-11] MEDS ORDERED: KETOROLAC 15 MG/ML 1 ML VIAL ONE (12:20)
--- NOTE | 2023-09-11 12:28 | P.PN ---
Subjective Progress Note Date: 09/11/23 CHIEF COMPLAINT: Abdominal pain HISTORY OF PRESENT ILLNESS: Patient scheduled for lap shanita today. Patient reports that yesterday after eating he did have pain between his shoulder blades and some tenderness right upper quadrant. Denies any nausea or vomiting. Afebrile. WBC 8.0 Hgb 12.9 platelets 243 sodium is 140 potassium is 4.6 creatinine 0.86 Mg 1.8 PHYSICAL EXAM: VITAL SIGNS: Reviewed. GENERAL: Well-developed in no acute distress. ABDOMEN: Soft. Nondistended. NEUROLOGIC: Alert and oriented. Cranial nerves II through XII grossly intact. ASSESSMENT: 1. Cholecystitis PLAN: -Patient scheduled for laparoscopic cholecystectomy today with Dr. Rees Physician Hot Wire Glass Tube Cutter note has been reviewed by physician. Signing provider agrees with the documented findings, assessment, and plan of care. Objective - Vital Signs Vital signs: Vital Signs Temp 98.1 F 09/11/23 10:51 Pulse 82 09/11/23 10:51 Resp 16 09/11/23 10:51 BP 108/67 09/11/23 10:51 Pulse Ox 97 09/11/23 10:51 FiO2 Intake & Output 09/10/23 09/11/23 09/11/23 18:59 06:59 18:59 Intake Total 1102 Balance 1102 Weight 86.6 kg Intake: Oral 1102 Other: Voiding Method Toilet Toilet # Voids 1 2 # Bowel Movements 2 - Labs CBC & Chem 7: 09/11/23 09:52 09/11/23 09:52 Labs: Abnormal Lab Results - Last 24 Hours (Table) 09/10/23 09/10/23 09/11/23 Range/Units 16:07 20:49 06:11 RBC (4.30-5.90) m/uL Hgb (13.0-17.5) gm/dL Chloride (98-107) mmol/L BUN (9-20) mg/dL Glucose (74-99) mg/dL POC Glucose (mg/dL) 164 H 212 H 182 H (70-110) mg/dL Total Protein (6.3-8.2) g/dL 09/11/23 09/11/23 09/11/23 Range/Units 09:52 09:52 11:07 RBC 4.21 L (4.30-5.90) m/uL Hgb 12.9 L (13.0-17.5) gm/dL Chloride 108 H (98-107) mmol/L BUN 25 H (9-20) mg/dL Glucose 156 H (74-99) mg/dL POC Glucose (mg/dL) 178 H (70-110) mg/dL Total Protein 6.2 L (6.3-8.2) g/dL
[2023-09-11] MEDS: LIDOCAINE 1%-EPI 1:100,000 20 ML VIAL SQ ONE (12:49)
[2023-09-11 13:20] LABS: Glucose,Whole Blood 240 mg/dL (70-110)
[2023-09-11] MEDS: HYDROmorphone 0.5 MG/0.5 ML SYRINGE IVP ONE ×2 (13:23→13:34)
--- NOTE | 2023-09-11 13:53 | P.PN ---
Subjective Attempted to see patient twice today during cardiology rounds. Patient is off the floor for surgery. Patient will be reevaluated tomorrow. Please call in the meantime with questions or concerns. Objective - Vital Signs Vital signs: Vital Signs Temp 96.8 F L 09/11/23 13:10 Pulse 75 09/11/23 13:40 Resp 16 09/11/23 13:40 BP 95/60 09/11/23 13:40 Pulse Ox 97 09/11/23 13:40 FiO2 Intake & Output 09/10/23 09/11/23 09/11/23 18:59 06:59 18:59 Intake Total 1102 750 Output Total 5 Balance 1102 745 Weight 86.6 kg Intake: IV 750 Oral 1102 Output: Estimated Blood Loss 5 Other: Voiding Method Toilet Toilet # Voids 1 2 # Bowel Movements 2 - Labs CBC & Chem 7: 09/11/23 09:52 09/11/23 09:52 Labs: Abnormal Lab Results - Last 24 Hours (Table) 09/10/23 09/10/23 09/11/23 Range/Units 16:07 20:49 06:11 RBC (4.30-5.90) m/uL Hgb (13.0-17.5) gm/dL Chloride (98-107) mmol/L BUN (9-20) mg/dL Glucose (74-99) mg/dL POC Glucose (mg/dL) 164 H 212 H 182 H (70-110) mg/dL Total Protein (6.3-8.2) g/dL 09/11/23 09/11/23 09/11/23 Range/Units 09:52 09:52 11:07 RBC 4.21 L (4.30-5.90) m/uL Hgb 12.9 L (13.0-17.5) gm/dL Chloride 108 H (98-107) mmol/L BUN 25 H (9-20) mg/dL Glucose 156 H (74-99) mg/dL POC Glucose (mg/dL) 178 H (70-110) mg/dL Total Protein 6.2 L (6.3-8.2) g/dL 09/11/23 Range/Units 13:19 RBC (4.30-5.90) m/uL Hgb (13.0-17.5) gm/dL Chloride (98-107) mmol/L BUN (9-20) mg/dL Glucose (74-99) mg/dL POC Glucose (mg/dL) 240 H (70-110) mg/dL Total Protein (6.3-8.2) g/dL
[2023-09-11] MEDS: HYDROmorphone 0.5 MG/0.5 ML SYRINGE IVP PRN (14:24)
[2023-09-11] MEDS: DEXAMETHASONE SOD PHOSPHATE 4 MG/ML 1 ML VIAL IV ONE (14:28)
--- NOTE | 2023-09-11 15:55 | P.PN ---
Subjective Progress Note Date: 09/11/23 Hospital course: Patient is a very pleasant 57-year-old male with a past medical history of diabetes mellitus, hypertension, hyperlipidemia, chronic systolic heart failure status post ICD, coronary disease status post multiple stents. He presented to the ED on 09/03/2023 with a chief complaint of right flank pain. Patient underwent evaluation in the emergency department.. Laboratory analysis was remarkable for WBC was 18.0, Total bilirubin 2.2, Urine showed 2+ ketones and moderate blood. His CT abdomen pelvis showed nonobstructing bilateral renal stones measuring up to 7 mm in the left lower lobe. He was admitted under our services for intractable abdominal pain and was started on a clear liquid diet, normal saline, and IV narcotic medications for pain. General surgery and urology were consulted. On 09/06/2023, patient developed reports of chest pain and an EKG was obtained showing normal sinus rhythm at 91 bpm with T wave inversion in leads I, aVL and V4 through V6. A troponin was obtained resulting at 1.230 with repeat troponin of 1.100. Cardiology was consulted and patient was taken for cardiac catheterization which reported patent stent in the mid RCA with intermediate to severe disease involving the PLV branch of the RCA and chronic total occlusion of the left circumflex with patent stent in the mid LAD with mild disease involving the distal LAD appearing to be unchanged per cardiology report. Electric Blanket Wirer recommending continuing of medical management at this point and following up with echocardiogram to assess aortic valve stating they will consider PCI of the PLV branch if patient remains symptomatic on maximized medical management. Echocardiogram revealing severely reduced EF of 25 to 30% with severe pulmonary hypertension and severe left atrial enlargement. Initial plan was for discharge 09/08/23 as patient was medically cleared, cleared by urology, and cleared by cardiology, however notified by RN that patient reported pain returned in his right upper quadrant and right scapular region shortly after eating and is concerned that gallbladder is the cause of these pains. General surgery took patient for laparoscopic cholecystectomy this morning. Physical exam: Patient seen and fully evaluated at bedside. He was resting comfortably status post laparoscopic cholecystectomy. He reports mild abdominal pain and right shoulder pain remains but states is controlled at this time. Patient denies any headache, lightheadedness, dizziness, chest pain, palpitations, shortness of breath, or any other complaints at this time. Vital signs reviewed and stable. General: Nontoxic, no distress and appears stated age. Derm: Skin warm and dry, normal coloration for ethnicity. Head: Atraumatic, normocephalic and symmetric. Eyes: EOMs intact, no lid lag, and anicteric sclera Mouth: no lip lesions, mucus membranes moist Cardiovascular: regular rate and rhythm with normal S1S2, systolic murmur, positive posterior tibial pulses bilaterally, and cap refill < 2 seconds. Lungs: Respirations even, regular, and unlabored on room air with no accessory muscle usage. Abdominal: soft, nontender to palpation, no guarding, no appreciable organomegaly Ext: ROM intact. No gross muscle atrophy, no edema, no contractures Neuro: Speech clear, face symmetrical and CN II-XII grossly intact with no noted focal neuro deficits Psych: Alert and oriented to person, place, time, and situation. Appropriate and pleasant affect. Assessment and Plan of Care: NSTEMI Ischemic cardiomyopathy status post AICD Valvular heart disease with bicuspid aortic valve and severe aortic stenosis -EKG was obtained showing normal sinus rhythm at 91 bpm with T wave inversion in leads I, aVL and V4 through V6. -Troponin resulting at 1.230 with repeat troponin of 1.100. -Cardiology following and took patient for cardiac catheterization on 09/06/2023 which reported patent stent in the mid RCA with intermediate to severe disease involving the PLV branch of the RCA and chronic total occlusion of the left circumflex with patent stent in the mid LAD with mild disease involving the distal LAD appearing to be unchanged per cardiology report. -Echocardiogram revealing severely reduced EF of 25 to 30% with severe pulmonary hypertension and severe left atrial enlargement. -Continue aspirin 81 mg daily, atorvastatin 80 mg nightly, lisinopril 5 mg daily, metoprolol 100 mg daily, and as needed sublingual nitroglycerin 0.4 mg as needed for chest pain. Intractable abdominal pain due to 4 mm right sided ureteric stone Microscopic hematuria -Urology note reviewed: No surgical intervention warranted at this point in time. -Urologist ordered for repeat KUB for monitoring of renal stones, upon follow-up of x-ray showing 5 mm nonobstructive right renal stone with a potential distal right ureteral stone and mild stool burden. -Dilaudid 0.5 mg every 3 hours as needed for pain -normal saline 75 cc an hour -consistent carb diet Constipation -Order placed for lactulose 30 g p.o. x 1 dose and patient started on MiraLAX 17 g daily. Will monitor for resolution. Chronic cholecystitis possible gallstone vs polyp -Surgery evaluated took patient for laparoscopic cholecystectomy this morning. Hypertension Chronic systolic heart failure Coronary artery disease status post stents Hyperlipidemia -Continue aspirin 81 mg daily, atorvastatin 80 mg nightly, lisinopril 5 mg daily, and metoprolol 100 mg daily Diabetes mellitus - Hold metformin and glimepride and continue with glycemic protocol with NovoLog sliding scale. - A1C 7.3 Leukocytosis, resolved Hypomagnesemia, resolved Data Reviewed: -Labs reviewed. CBC showing stable normocytic anemia with hemoglobin of 12.9 otherwise normal findings. BMP showing mild hyperchloremia with chloride of 108 and prerenal azotemia with BUN of 25. Blood glucose 156. Liver profile unremarkable. Magnesium normal findings at 1.8. -Vital signs reviewed. Blood pressure 108/67, heart rate 82, respiratory rate 16, temp 98.1 F, and SpO2 of 97% on room air. CODE STATUS: Full code DVT prophylaxis: Heparin Anticipated discharge date: Likely tomorrow morning once cleared by general surgery team. Anticipated discharge place: Home Patient was seen independently by Nurse Pracitioner. This document was prepared using [employer] dictation software. Please allow for errors in grove worker, while rare they do occur. Asif Hernandez NP rendered care for this patient independently, reviewed the findings and plan as documented in the note above. I did not physically speak with or examine the patient on this date. Objective - Vital Signs Vital signs: Vital Signs Temp 98.1 F 09/11/23 04:00 Pulse 87 09/11/23 04:00 Resp 19 09/11/23 04:00 BP 99/61 09/11/23 04:00 Pulse Ox 96 09/11/23 04:00 FiO2 Intake & Output 09/10/23 09/11/23 09/11/23 18:59 06:59 18:59 Intake Total 1102 Balance 1102 Weight 86.6 kg Intake: Oral 1102 Other: Voiding Method Toilet # Voids 1 2 # Bowel Movements 2 - Labs CBC & Chem 7: 09/11/23 09:52 09/11/23 09:52 Labs: Abnormal Lab Results - Last 24 Hours (Table) 09/10/23 09/10/23 09/10/23 Range/Units 11:17 16:07 20:49 POC Glucose (mg/dL) 197 H 164 H 212 H (70-110) mg/dL 09/11/23 Range/Units 06:11 POC Glucose (mg/dL) 182 H (70-110) mg/dL
[2023-09-11 16:39] LABS: Glucose,Whole Blood 226 mg/dL (70-110)
[2023-09-11 20:45] LABS: Glucose,Whole Blood 228 mg/dL (70-110)
[2023-09-12 05:55] LABS: Glucose,Whole Blood 209 mg/dL (70-110)
--- NOTE | 2023-09-12 10:39 | P.PN ---
Subjective Progress Note Date: 09/12/23 CHIEF COMPLAINT: Abdominal pain HISTORY OF PRESENT ILLNESS: Patient is postop day #1 status post laparoscopic cholecystectomy.He is tolerating diet. Pain controlled. He reports some discomfort in the shoulder blades. Having flatus. Afebrile. PHYSICAL EXAM: VITAL SIGNS: Reviewed. GENERAL: Well-developed. no acute distress. ABDOMEN: Soft. Nondistended. Incisions is clean dry and intact NEUROLOGIC: Alert and oriented. Cranial nerves II through XII grossly intact. ASSESSMENT: 1. Cholecystitis status post laparoscopic cholecystectomy PLAN: -Patient can be discharged from surgical standpoint Physician Hse Coordinator note has been reviewed by physician. Signing provider agrees with the documented findings, assessment, and plan of care. Objective - Vital Signs Vital signs: Vital Signs Temp 98.1 F 09/12/23 04:00 Pulse 80 09/12/23 04:00 Resp 19 09/12/23 04:00 BP 87/53 09/12/23 04:00 Pulse Ox 93 L 09/12/23 04:00 FiO2 Intake & Output 09/11/23 09/12/23 09/12/23 18:59 06:59 18:59 Intake Total 1068 118 Output Total 5 325 325 Balance 1063 -325 -207 Intake: IV 950 Oral 118 118 Output: Urine 325 325 Estimated Blood Loss 5 Other: Voiding Method Toilet Toilet - Labs CBC & Chem 7: 09/11/23 09:52 09/11/23 09:52 Labs: Abnormal Lab Results - Last 24 Hours (Table) 09/11/23 09/11/23 09/11/23 Range/Units 09:52 09:52 11:07 RBC 4.21 L (4.30-5.90) m/uL Hgb 12.9 L (13.0-17.5) gm/dL Chloride 108 H (98-107) mmol/L BUN 25 H (9-20) mg/dL Glucose 156 H (74-99) mg/dL POC Glucose (mg/dL) 178 H (70-110) mg/dL Total Protein 6.2 L (6.3-8.2) g/dL 09/11/23 09/11/23 09/11/23 Range/Units 13:19 16:38 20:36 RBC (4.30-5.90) m/uL Hgb (13.0-17.5) gm/dL Chloride (98-107) mmol/L BUN (9-20) mg/dL Glucose (74-99) mg/dL POC Glucose (mg/dL) 240 H 226 H 228 H (70-110) mg/dL Total Protein (6.3-8.2) g/dL 09/12/23 Range/Units 05:54 RBC (4.30-5.90) m/uL Hgb (13.0-17.5) gm/dL Chloride (98-107) mmol/L BUN (9-20) mg/dL Glucose (74-99) mg/dL POC Glucose (mg/dL) 209 H (70-110) mg/dL Total Protein (6.3-8.2) g/dL
[2023-09-12 11:07] VITALS: BP 94/60; PULSE 85; RESP 18; TEMP 98
[2023-09-12 11:21] LABS: Glucose,Whole Blood 192 mg/dL (70-110)
--- NOTE | 2023-09-12 11:44 | P.DS ---
Providers Date of admission: 09/06/23 09:09 Expected date of discharge: 09/12/23 Attending physician: Lucia Ibrahim MD Consults: 09/04/23 01:10 Consult Physician Routine Consulting Provider: Sal Rees Consult Reason/Comments: Abdominal pain Do you want consulting provider notified?: Yes 09/04/23 13:05 Consult Physician Routine Consulting Provider: Miguelangel Ring Consult Reason/Comments: Right flank pain Do you want consulting provider notified?: Yes 09/06/23 08:59 Consult Physician Routine Consulting Provider: Felton Yañez Consult Reason/Comments: chest pain, CAD Do you want consulting provider notified?: Yes Primary care physician: Deborah Thompson MD Hospital Course: Discharge Diagnosis: NSTEMI. Cardiology evaluated and took patient for cardiac catheterization on 09/06/2023 which reported patent stent in the mid RCA with intermediate to severe disease involving the PLV branch of the RCA and chronic total occlusion of the left circumflex with patent stent in the mid LAD with mild disease involving the distal LAD appearing to be unchanged per hunting and fishing guide's report. Continue asp irin 81 mg daily, atorvastatin 80 mg nightly, lisinopril 5 mg daily, metoprolol 100 mg daily, and as needed sublingual nitroglycerin 0.4 mg as needed for chest pain. Ischemic cardiomyopathy status post AICD. Echocardiogram revealing severely reduced EF of 25 to 30% with severe pulmonary hypertension and severe left atrial enlargement. Valvular heart disease with bicuspid aortic valve and severe aortic stenosis. Patient to continue to follow with cardiology for continued monitoring and if needed management of bicuspid aortic valve with severe aortic stenosis. Intractable abdominal pain due to 4 mm right sided ureteric stone. Urology evaluated and patient has been started on Flomax 0.4 mg daily. Patient to follow-up outpatient in their office in 1 week. Microscopic hematuria Constipation. Resolved. Chronic cholecystitis. Surgery evaluated and took patient for laparoscopic cholecystectomy on 09/11/2023. Patient to follow-up outpatient in their office in 1 week. Hypertension Chronic systolic heart failure-Continue aspirin 81 mg daily, atorvastatin 80 mg nightly, lisinopril 5 mg daily, and metoprolol 100 mg daily Coronary artery disease status post stents. Continue aspirin 81 mg daily, atorvastatin 80 mg nightly, lisinopril 5 mg daily, and metoprolol 100 mg daily. Hyperlipidemia. Continue aspirin 81 mg daily, atorvastatin 80 mg nightly, lisinopril 5 mg daily, and metoprolol 100 mg daily. Hypertension. Continue aspirin 81 mg daily, atorvastatin 80 mg nightly, lisinopril 5 mg daily, and metoprolol 100 mg daily. Diabetes mellitus. Resume metformin 500 mg twice daily, Trulicity 3 mg subcu Wednesdays, and glimepiride 1 mg daily. Hemoglobin A1c 7.3% Leukocytosis, resolved Hypomagnesemia, resolved Hospital course: Patient is a very pleasant 57-year-old male with a past medical history of diabetes mellitus, hypertension, hyperlipidemia, chronic systolic heart failure status post ICD, coronary disease status post multiple stents. He presented to the ED on 09/03/2023 with a chief complaint of right flank pain. Patient underwent evaluation in the emergency department.. Laboratory analysis was remarkable for WBC was 18.0, Total bilirubin 2.2, Urine showed 2+ ketones and moderate blood. His CT abdomen pelvis showed nonobstructing bilateral renal stones measuring up to 7 mm in the left lower lobe. He was admitted under our services for intractable abdominal pain and was started on a clear liquid diet, normal saline, and IV narcotic medications for pain. General surgery and urology were consulted. On 09/06/2023, patient developed reports of chest pain and an EKG was obtained showing normal sinus rhythm at 91 bpm with T wave inve rsion in leads I, aVL and V4 through V6. A troponin was obtained resulting at 1.230 with repeat troponin of 1.100. Cardiology was consulted and patient was taken for cardiac catheterization which reported patent stent in the mid RCA with intermediate to severe disease involving the PLV branch of the RCA and chronic total occlusion of the left circumflex with patent stent in the mid LAD with mild disease involving the distal LAD appearing to be unchanged per cardiology report. [employer] recommending continuing of medical management at this point and following up with echocardiogram to assess aortic valve stating they will consider PCI of the PLV branch if patient remains symptomatic on maximized medical management. Echocardiogram revealing severely reduced EF of 25 to 30% with severe pulmonary hypertension and severe left atrial enlargement. Initial plan was for discharge 09/08/23 as patient was medically cleared, cleared by urology, and cleared by cardiology, however notified by RN that patient reported pain returned in his right upper quadrant and right scapular region shortly after eating and is concerned that gallbladder is the cause of these pains. General surgery took patient for laparoscopic cholecystectomy this 09/11/2023. Patient tolerating oral intake well he is free from any further complaints including chest pain, shortness of breath, dizziness, lightheadednes s, palpitations, cough or congestion, nausea or vomiting, or any other complaints. Patient reports mild postsurgical pain but states currently controlled. Patient cleared from cardiology, urology, and general surgery. He is medically stable for discharge at this time and to follow-up outpatient with PCP in 1 to 2 days and with hunting and fishing guide, urologist, and general surgeon in 1 week. Physical exam: Vital signs reviewed and stable. General: Nontoxic, no distress and appears stated age. Derm: Skin warm and dry, normal coloration for ethnicity. Head: Atraumatic, normocephalic and symmetric. Eyes: EOMs intact, no lid lag, and anicteric sclera Mouth: no lip lesions, mucus membranes moist Cardiovascular: regular rate and rhythm with normal S1S2, systolic murmur, positive posterior tibial pulses bilaterally, and cap refill < 2 seconds. Lungs: Respirations even, regular, and unlabored on room air with no accessory muscle usage. Abdominal: soft, nontender to palpation, no guarding, no appreciable organomegaly Ext: ROM intact. No gross muscle atrophy, no edema, no contractures Neuro: Speech clear, face symmetrical and CN II-XII grossly intact with no noted focal neuro deficits Psych: Alert and oriented to person, place, time, and situation. Appropriate and pleasant affect. A total of 39 minutes of time were spent preparing this complex discharge summary. Pt was discharged on 09/12/2023 at 9:48 AM. Patient was seen independently by Nurse Practitioner. This document was prepared using [employer] dictation software. Please allow for errors in jewelry drill operator while rare they do occur. Asif Hernandez NP rendered care for this patient independently, reviewed the findings and plan as documented in the note above. I did not physically speak with or examine the patient on this date. Patient Condition at Discharge: Stable Plan - Discharge Summary Discharge Rx Participant: Yes New Discharge Prescriptions: New Tamsulosin [Flomax] 0.4 mg PO PC-SUPPER 30 Days #30 cap tiZANidine [Zanaflex] 2 mg PO TID PRN #30 tab PRN Reason: Muscle Spasticity Furosemide [Lasix] 40 mg PO DAILY 60 Days #60 tablet HYDROcodone/APAP 5-325MG [[place] 5-325] 1 tab PO Q6HR PRN 3 Days #12 tab PRN Reason: Pain Lidocaine 4% Patch 1 patch TOPICAL DAILY 60 Days #60 patch Continue Nitroglycerin Sl Tabs [Nitrostat] 0.4 mg SUBLINGUAL Q5M PRN PRN Reason: Chest Pain Enalapril [Vasotec] 2.5 mg PO DAILY traMADol HCL [Ultram] 50 mg PO Q6HR PRN PRN Reason: Pain metFORMIN HCL [Glucophage] 500 mg PO BID Ibuprofen [Motrin] 800 mg PO TID Atorvastatin [Lipitor] 80 mg PO HS Metoprolol Succinate [Toprol XL] 100 mg PO DAILY Dulaglutide [Trulicity] 3 mg SQ WE Glimepiride [Amaryl] 1 mg PO AC-BRKFST Discontinued Spironolactone [Aldactone] 25 mg PO DAILY Discharge Medication List Enalapril [Vasotec] 2.5 mg PO DAILY 10/10/13 [History] Nitroglycerin Sl Tabs [Nitrostat] 0.4 mg SUBLINGUAL Q5M PRN 10/10/13 [History] traMADol HCL [Ultram] 50 mg PO Q6HR PRN 05/11/20 [History] metFORMIN HCL [Glucophage] 500 mg PO BID 08/07/20 [History] Atorvastatin [Lipitor] 80 mg PO HS 09/04/23 [History] Dulaglutide [Trulicity] 3 mg SQ WE 09/04/23 [History] Glimepiride [Amaryl] 1 mg PO AC-BRKFST 09/04/23 [History] Ibuprofen [Motrin] 800 mg PO TID 09/04/23 [History] Metoprolol Succinate [Toprol XL] 100 mg PO DAILY 09/04/23 [History] Furosemide [Lasix] 40 mg PO DAILY 60 Days #60 tablet 09/08/23 [Rx] Lidocaine 4% Patch 1 patch TOPICAL DAILY 60 Days #60 patch 09/08/23 [Rx] Tamsulosin [Flomax] 0.4 mg PO PC-SUPPER 30 Days #30 cap 09/08/23 [Rx] tiZANidine [Zanaflex] 2 mg PO TID PRN #30 tab 09/08/23 [Rx] HYDROcodone/APAP 5-325MG [[place] 5-325] 1 tab PO Q6HR PRN 3 Days #12 tab 09/12/23 [Rx] Follow up Appointment(s)/Referral(s): Efraín Freeman MD [REFERRING] - 1-2 days Felton Yañez MD [STAFF PHYSICIAN] - 1 Week (Office will call you with an appt) Miguel Olvera MD [STAFF PHYSICIAN] - 1 Week (Appt MonSeptember 24 10am) Sal Rees MD [STAFF PHYSICIAN] - 1 Week (September 19, 2023 @ 3:30) Patient Instructions/Handouts: Kidney Stones (DC), Heart Healthy Diet (DC), Decision Aid for Stable Ischemic Heart Disease (GEN) Activity/Diet/Wound Care/Special Instructions: Activity: As tolerated. Take breaks as needed. Diet: Heart healthy and carb consistent diet. Avoid salts, or foods with hidden salts such as canned or boxed foods and frozen dinners. Extra salt makes your heart work harder and traps the fluid in your body for longer. Special Instructions: Take all of your medications as directed and remember to keep all of your doctor's appointments and follow-up as needed. Thank you for allowing us to participate in your care, it was truly a pleasure having you for our patient!!! . Discharge Disposition: HOME SELF-CARE
--- NOTE | 2023-09-12 13:21 | P.PN ---
Subjective HISTORY OF PRESENT ILLNESS: This is a 57-year-old male with a past medical history significant for coronary artery disease with previous stenting, ischemic cardiomyopathy, AICD implantation, hypertension, hyperlipidemia, valvular heart disease, bicuspid aortic valve with aortic stenosis and regurgitation, and diabetes. Patient follows in the office with Dr. Yañez. We have been asked to see the patient in consultation for chest pain. Patient examined at the bedside. Patient initially presented to the hospital with right sided abdominal pain. Patient was found to have right ureteral calculus. Patient is being followed by urology. Patient is requesting to attempt to pass the stone on his own. The patient developed discomfort this morning in between his shoulder blades which he states feels similar to when he required stenting in the past and cardiology was consulted for evaluation. EKG revealed sinus mechanism with no signs of acute ischemia. Troponin was drawn and resulted at 1.23. DIAGNOSTICS: - EKG reveals sinus mechanism with TWI laterally - Laboratory data: WBC 7.9. Hemoglobin 11.2. Platelet count 207. Sodium 140. Potassium 4.4. BUN 19. Creatinine 0.84. Troponin 1.230. - Current home cardiac medications include Lipitor 80 mg at night, metoprolol succinate 100 mg daily, Aldactone 25 mg daily, enalapril 2.5 mg daily. - Most recent echocardiogram obtained in February 2023 revealing EF 35%, severe , mild to moderate MR, moderate AR - Cardiac catheterization history: May 2020 revealing patent stent in the mid RCA. Intermediate disease involving the PLV branch of the RCA. Normal left main coronary artery. 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 Intermediate to severe lesion involving the mid LAD. Medical management was recommended. 09/06 patient seen and examined. Patient admits he is feeling short of breath and this is somewhat worse then previous. He has been receiving IV fluids. Repeat echo does show EF approximately 25-30% on personal review and does appear to have low flow low gradient severe aortic stenosis. He admits he has been having some shortness breath over the last few months. 09/08 Blood pressure 98/68, heart rate 79-92, pulse ox 92% on room air. Repeat blood work reveals hemoglobin 12.9, WBC 9.6. Potassium 4.4, creatinine 0.77. Patient states that he is undergoing gallbladder surgery on Monday. He states he has had ongoing problems with pain between his shoulder blades. Yesterday Nitropaste was transition to Imdur and Lasix IV to oral. 09/09 Patient is seen today in follow-up. He states he continues to have pain in his shoulders related to his oral intake. Blood pressure 97/59, heart rate 83, pulse ox 96% on room air. Patient is scheduled for laparoscopic cholecystectomy on Monday. 09/12/2023 Patient seen and examined this morning at the bedside. Patient is status post laparoscopic cholecystectomy. Postop day #1. He denies chest pain or pressure. He denies shortness of breath. Vital signs are stable. Blood pressure on the lower side with a recent reading of 94/60. PHYSICAL EXAM: VITAL SIGNS: Reviewed. GENERAL: Well-developed in no acute distress. NECK: Supple. No JVD or thyromegaly LUNGS: Respirations even and unlabored. Lungs essentially clear to auscultation bilaterally. HEART: Regular rate and rhythm. S1 and S2 heard. Systolic murmur noted. EXTREMITIES: Normal range of motion. No clubbing or cyanosis. Peripheral pulses intact. No lower extremity edema ASSESSMENT: Abdominal pain Right-sided ureteral calculus Non-STEMI, status post cardiac catheterization revealing no progression of CAD Coronary artery disease with previous stenting Ischemic cardiomyopathy versus stress-induced cardiomyopathy History of AICD implantation Hypertension Hyperlipidemia Valvular heart disease including bicuspid aortic valve with severe , moderate AR, and mild to moderate MR Diabetes Acute on chronic systolic heart failure Cholecystitis, it is post laparoscopic cholecystectomy PLAN: Continue current cardiac medications Patient is stable for discharge home today Follow up post discharge in the office Nurse practitioner note has been reviewed by physician. Signing provider agrees with the documented findings, assessment, and plan of care documented by HISTORICAL INTERPRETER as a scribe. Objective - Vital Signs Vital signs: Vital Signs Temp 98.0 F 09/12/23 08:00 Pulse 85 09/12/23 08:00 Resp 18 09/12/23 08:00 BP 94/60 09/12/23 08:00 Pulse Ox 99 09/12/23 08:00 FiO2 Intake & Output 09/11/23 09/12/23 09/12/23 18:59 06:59 18:59 Intake Total 1068 118 Output Total 5 325 325 Balance 1063 -325 -207 Intake: IV 950 Oral 118 118 Output: Urine 325 325 Estimated Blood Loss 5 Other: Voiding Method Toilet Toilet Toilet - Labs CBC & Chem 7: 09/11/23 09:52 09/11/23 09:52 Labs: Abnormal Lab Results - Last 24 Hours (Table) 09/11/23 09/11/23 09/11/23 Range/Units 09:52 11:07 13:19 Chloride 108 H (98-107) mmol/L BUN 25 H (9-20) mg/dL Glucose 156 H (74-99) mg/dL POC Glucose (mg/dL) 178 H 240 H (70-110) mg/dL Total Protein 6.2 L (6.3-8.2) g/dL 09/11/23 09/11/23 09/12/23 Range/Units 16:38 20:36 05:54 Chloride (98-107) mmol/L BUN (9-20) mg/dL Glucose (74-99) mg/dL POC Glucose (mg/dL) 226 H 228 H 209 H (70-110) mg/dL Total Protein (6.3-8.2) g/dL
--- NOTE | 2023-10-12 15:29 | P.OP ---
Date of Procedure: 09/11/23 Preoperative Diagnosis: Cholecystitis Postoperative Diagnosis: cholecystitis Procedure(s) Performed: laparoscopic cholecystectomy Anesthesia: RON Surgeon: Sal Rees Estimated Blood Loss (ml): 5 Pathology: other (gallbladder) Condition: stable Disposition: PACU Description of Procedure: patient was placed on the operative table in the supine position. He received general endotracheal tube anesthesia. His abdomen was prepped and draped in sterile fashion. An infraumbilical skin incision was made. Then using a Pierko clamps the umbilicus was grasped. And then the Veress needle was inserted into the pleural cavity. Position of the Veress needle confirmed with a positive drop test. After adequate insufflation a 5 mm trocar was placed into the peritoneal cavity. The abdomen was insufflated.. After adequate insufflation the laparoscope was placed Into the peritoneal cavity. The patient was placed in the right side up reverse Trendelenburg position. A 8 mm trocars placed in the epigastric region. Two 5 mm trocars placed in the right lateral and right mid abdomen position. The gallbladder was visualized. The gallbladder was grasped on the fundus and infundibulum. Traction was placed on the gallbladder in the cephalad and lateral position. The triangle JABARI was visualized. The cystic duct was dissected using a pusher. The cystic duct was seen entering the common bile duct. A critical view of safety was seen. The cystic duct was then ligated with a 2-0 Ethibond and the tie knot device. The cystic duct was then cut using the harmonic scissors. The cystic artery was then divided using harmonic scissors. The gallbladder was then removed from liver bed using harmonic scissors. The gallbladder was extracted through the epigastric port site.No bleeding was seen. The skin was closed interrupted 3-0 Monocryl suture. Dermabond dressing applied. Patient Tolerated the procedure well. He was sent to recovery room in stable condition.
== END 2023-09-12 13:03 | disposition home or self-care (01) | DRG 987 ==
LOC: EC 21:41 → 6NMEDSUR 09-04 01:10 → OBSVTOIN 09-06 09:09 → 3SCARD 09-06 13:10
PROVIDERS: ADMIT Internal Medicine; ATTEND Internal Medicine
PROC: B2111ZZ Fluoroscopy of Multiple Coronary Arteries using Low Osmolar Contrast (ICD-10-PCS; principal; 2023-09-06 13:05)
PROC: 0FT44ZZ Resection of Gallbladder, Percutaneous Endoscopic Approach (ICD-10-PCS; 2023-09-11)
DX: N20.2 Calculus of kidney with calculus of ureter (principal); I21.4 Non-ST elevation (NSTEMI) myocardial infarction; I50.23 Acute on chronic systolic (congestive) heart failure; T82.855A Stenosis of coronary artery stent, initial encounter; Q23.1 Congenital insufficiency of aortic valve; I11.0 Hypertensive heart disease with heart failure; I25.10 Atherosclerotic heart disease of native coronary artery without angina pectoris; I25.5 Ischemic cardiomyopathy; K81.1 Chronic cholecystitis; E83.42 Hypomagnesemia; I27.20 Pulmonary hypertension, unspecified; Y84.8 Other medical procedures as the cause of abnormal reaction of the patient, or of later complication, without mention of misadventure at the time of the procedure; E78.5 Hyperlipidemia, unspecified; E86.1 Hypovolemia; I25.2 Old myocardial infarction; Z79.899 Other long term (current) drug therapy; Z79.84 Long term (current) use of oral hypoglycemic drugs; Z82.49 Family history of ischemic heart disease and other diseases of the circulatory system; Z90.49 Acquired absence of other specified parts of digestive tract; Z95.810 Presence of automatic (implantable) cardiac defibrillator; Z93.3 Colostomy status; Z79.82 Long term (current) use of aspirin; Z88.5 Allergy status to narcotic agent; Z91.048 Other nonmedicinal substance allergy status; R31.29 Other microscopic hematuria
CPT/HCPCS: 36415; 74018; 74176; 76705; 76937; 80048; 80053; 81001; 82150; 83036; 83605; 83690; 83735; 83880; 84100; 84443; 84484; 85025; 85027; 85610; 85730; 88304; 93306; 93454; 94760; 96361; 96374; 96375; 96376; 99285

== ENCOUNTER → 2023-09-25 | Outpatient (CLI) | payer MEDICARE, BC ==
--- NOTE | 2023-09-25 11:19 | XR ---
EXAMINATION TYPE: XR KUB DATE OF EXAM: 09/25/2023 11:03 AM CLINICAL INDICATION:Male, 57 years old with history of N20.0 CALCULUS OF KIDNEY N20.1 CALCULUS OF URE TER; COMPARISON: 09/09/2023 TECHNIQUE: One radiographic view of the abdomen was obtained. FINDINGS: The bowel gas pattern is nonspecific without dilated loops of small or large bowel. There i s no evidence for organomegaly or pneumoperitoneum. The osseous structures are intact. Bilateral re nal calculi measuring up to 6 mm on the right and 10 mm on the left. Fecal material and gas are demon strated throughout the colon and rectum. IMPRESSION: 1. Bilateral renal calculi. 2. Nonspecific bowel gas pattern without radiographic evidence for acute process.
== END | disposition home or self-care (01) ==
LOC: RADXRMAIN 10:47
PROVIDERS: ATTEND Urology
DX: N20.2 Calculus of kidney with calculus of ureter (principal)
CPT/HCPCS: 74018

== ENCOUNTER → 2024-07-19 | Day surgery (SDC) | payer MEDICARE, BC ==
[~2024-07-19] MED LIST changes: +ALPRAZolam 0.25 MG TAB PO PRN; +ALPRAZolam 0.5 MG TAB PO PRN; +EMPTY BAG 1 BAG with SODIUM CHLORIDE 0.9% 1,000 ML IV ONE; +NITROGLYCERIN SL TABS 0.4 MG TAB SUBLINGUAL PRN; +RX INFO: IV CONTRAST WAS GIVEN 1 EACH MISC MISCELLANE PRN; -ceFAZolin 1 GM in SODIUM CHLORIDE 0.9% 250 ML IRRIGATION PRN
[2024-07-19] MEDS: IV FLUID CONTINUATION 1,000 ML IV ONE (06:20)
[2024-07-19] MEDS: SODIUM CHLORIDE 0.9% 1,000 ML in EMPTY BAG 1 BAG IV SCH (06:20)
[2024-07-19 06:42] LABS: Glucose,Whole Blood 136 mg/dL (70-110)
[2024-07-19] MEDS: ASPIRIN 325 MG TAB PO STA (06:50)
[2024-07-19] MEDS: ATORVASTATIN 80 MG TAB PO STA (06:50)
[2024-07-19 07:01] VITALS: TEMP 96.9
[2024-07-19] MEDS: HEPARIN SODIUM,PORCINE (1 ML) 2,500 UNIT in SODIUM CHLORIDE 0.9% 250 ML IRRIGATION PRN (07:25)
[2024-07-19] MEDS: HEPARIN SODIUM,PORCINE 10,000 UNIT in SODIUM CHLORIDE 0.9% 1,000 ML IRRIGATION PRN (07:25)
[2024-07-19] MEDS: BENZOCAINE SPRAY 1 EACH MM ONE ×3 (07:42→07:45)
[2024-07-19] MEDS: MIDAZOLAM 2 MG/2 ML VIAL IVP ONE (07:44)
[2024-07-19] MEDS: fentaNYL (PF) 50 MCG/ML 2 ML AMP IVP ONE (07:44)
[2024-07-19] MEDS: LIDOCAINE 1% INJ 10MG/ML (20 ML MDV) SQ ONE ×2 (08:25→08:29)
[2024-07-19] MEDS: VERAPAMIL SYRINGE (5 MG/10 ML) INTRAARTER ONE (08:26)
[2024-07-19] MEDS: HEPARIN SODIUM 1,000 UN/ML (10ML VL) IVP ONE (08:38)
[2024-07-19] MEDS: IOPAMIDOL-370 100ML BTL INJ ONE (09:00)
[2024-07-19 11:47] VITALS: RESP 14
[2024-07-19 11:49] VITALS: PULSE 78
[2024-07-19 11:50] VITALS: BP 95/61
--- NOTE | 2024-07-19 14:39 | P.PCN ---
Date of Procedure: 07/19/24 Operative Findings: TRANSESOPHAGEAL ECHOCARDIOGRAM DRINKING WATER TECHNICIAN: ANUSHA CURTIS MD, RPVI INDICATION: Valvular heart disease SEDATION: Conscious sedation COMPLICATION: None LEVEL OF SEDATION Moderate with sedation length of 20 minutes PROCEDURE DESCRIPTION: After obtaining an informed consent, the patient was brought to transesophageal echocardiogram room. Pulse oximetry and heart monitors were attached to the patient. The patient throat was sprayed using lidocaine. The patient was turned into le ft lateral position. After that a bite guard was placed. After an appropriate conscious sedation was initiated, the transesophageal echocardiogram was advanced through a bite guard into the mid esophagus. A 2-D echocardiogram images, color Doppler images, continuous wave images, pulse-wave images, of various cardiac structure were performed. After that the transesophageal echocardiogram probe was advanced into the stomach and fixed to obtain transgastric view was. The probe was brought into the mid esophagus. Inter-atrial septum was interrogated using 2D images, color Doppler images, and then contrast study. After that transesophageal echocardiogram was withdrawn out and upon withdrawing the descending thoracic aorta all the way up to the arch was evaluated. CONCLUSION: 1. Dilated LV with severely impaired LV function and EF at 30 to 35% 2. Heavily calcified aortic valve and likely bicuspid aortic valve versus unicuspid aortic valve and evidence of moderate aortic regurgitation and aortic stenosis with a peak systolic velocity of 3.7 m/s and mean gradient of 38 mmHg 3. Mildly thickened mitral valve leaflets with moderate mitral regurgitation with a central jet 4. Moderate tricuspid regurgitation 5. Intact interatrial septum 6. No evidence of pericardial effusion
--- NOTE | 2024-07-19 14:44 | P.PCN ---
Date of Procedure: 07/19/24 Operative Findings: CARDIAC CATHETERIZATION PERFORMING PHYSICIAN: Felton Yañez MD, RPVI PROCEDURE PERFORMED: 1. Selective right and left coronary angiogram 2. Left heart catheterization and right heart catheterization 3. Ultrasound-guided access of the right radial artery INDICATION: Aortic stenosis COMPLICATION: None APPROACH: Right radial artery LEVEL OF SEDATION: Moderate with a sedation length of 30 minutes PROCEDURE DESCRIPTION: After obtaining an informed consent, the patient was brought to cardiac clinical laboratory technician. Local anesthesia was performed using lidocaine subcutaneously. The right common femoral vein was cannulated using micropuncture technique the micropuncture wire passed easily then I placed a 6 [place] 11 cm sheath at the right common femoral vein. The right radial artery was cannulated using Seldinger technique, under ultrasound guidance, the guidewire passed easily, following that we advanced a 5-[place] sheath dilator assembly, the wire and dilator were removed and sheath was flushed. Following that, 2 mg of verapamil along with 5000 unit heparin were given. Selective right and left coronary angiogram using a 5-[place] JR4 and JL 3.5 catheters. Following that we did left heart catheterization using 5-[place] pigtail catheter. The procedure was completed there was no complication. SELECTIVE CORONARY ANGIOGRAM: The right coronary artery: Large caliber vessel and a dominant vessel with mild to moderate disease with no evidence of high-grade stenosis and intermediate disease involving the PLV branch appears to be unchanged compared to before. The RCA is stented in the midportion and the stent is patent Left main: Has mild disease only. The left circumflex: Is chronically occluded and appears to be a medium size caliber vessel. The left anterior descending artery: The proximal LAD appeared to have mild disease appears to be in-stent restenosi s. The mid LAD after the bifurcation of a diagonal branch has intermediate disease but appeared to be small to medium caliber vessel. HEMODYNAMICS: The cardiac output was 5.34 L/min with a cardiac index of 2.68 L/min/m Pulmonary capillary wedge pressure was 33 mmHg PA pressures were as follow systolic of 70 and diastolic of 33 and mean of 49 mmHg RV pressures were as follows systolic of 68 and end-diastolic of 17 mmHg RA pressure was 8 mmHg Transpulmonary gradient was 16 mmHg Pulmonary vascular resistance was 3 Wood units CONCLUSION: 1. Elevated biventricular filling pressures 2. 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 No evidence of high-grade stenosis on the coronary angiogram POSTPROCEDURE MANAGEMENT: Evaluate the patient for aortic valve replacement
== END ==
LOC: CATHCVL 06:12
PROVIDERS: ATTEND Internal Medicine Interventional Cardiology
DX: I25.10 Atherosclerotic heart disease of native coronary artery without angina pectoris (principal); I08.3 Combined rheumatic disorders of mitral, aortic and tricuspid valves; I25.5 Ischemic cardiomyopathy; I47.20 Ventricular tachycardia, unspecified; I77.819 Aortic ectasia, unspecified site; I27.22 Pulmonary hypertension due to left heart disease; I10 Essential (primary) hypertension; E78.5 Hyperlipidemia, unspecified; E11.9 Type 2 diabetes mellitus without complications; Q23.1 Congenital insufficiency of aortic valve; L23.1 Allergic contact dermatitis due to adhesives; Z88.5 Allergy status to narcotic agent; Z88.6 Allergy status to analgesic agent; Z88.9 Allergy status to unspecified drugs, medicaments and biological substances; Z79.84 Long term (current) use of oral hypoglycemic drugs; Z79.02 Long term (current) use of antithrombotics/antiplatelets; Z79.82 Long term (current) use of aspirin; Z79.899 Other long term (current) drug therapy
CPT/HCPCS: 99152; 99153; 93312; 93320; 93325; 93460; C1769 ×3; C1894; C1751; C1760 ×2; J2250; J1644 ×3; J2003; J3010; Q9967; 93458

== ENCOUNTER 2024-11-13 22:56 | Inpatient (IN) | payer MEDICARE, BC ==
--- NOTE | 2024-11-13 23:41 | ED ---
General Adult HPI - General Chief complaint: Shortness of Breath Stated complaint: SOB, tachycardia Time Seen by Provider: 11/13/24 22:59 Source: patient Mode of arrival: ambulatory Limitations: no limitations - History of Present Illness Initial comments: Patient is 58-year-old gentleman past medical history of CAD, aortic valve stenosis, bicuspid aortic valve presenting today at the direction of his supervisor compounding and finishing, Dr. Yañez for 2 weeks of worsening shortness of breath and intermittent chest pain. Patient states that over the last few weeks he has be come more short of breath with exertion. States he cannot walk 10 feet without becoming short of breath. He states while driving at times he will begin to feel drunk like he is going to pass out and lightheaded. Over the last few days he has had intermittent tightness between his shoulder blades rates it as 3 out of 10. Denies chest pain otherwise. Was seen at his PCP's office earlier today and pt states he was tachycardic. - Related Data Home Medications Medication Instructions Recorded Confirmed Enalapril [Vasotec] 2.5 mg PO DAILY 10/10/13 11/14/24 Nitroglycerin Sl Tabs [Nitrostat] 0.4 mg SL Q5M PRN 10/10/13 11/14/24 traMADol HCL [Ultram] 50 mg PO Q6HR PRN 05/11/20 11/14/24 metFORMIN HCL [Glucophage] 500 mg PO BID 08/07/20 11/14/24 Atorvastatin [Lipitor] 80 mg PO HS 09/04/23 11/14/24 Dulaglutide [Trulicity] 3 mg SQ TH 09/04/23 11/14/24 Glimepiride [Amaryl] 1 mg PO AC-[id number] 09/04/23 11/14/24 Metoprolol Succinate [Toprol XL] 100 mg PO DAILY 09/04/23 11/14/24 Furosemide [Lasix] 40 mg PO DAILY PRN 06/20/24 11/14/24 Aspirin [Adult Low Dose Aspirin EC] 81 mg PO DAILY 07/19/24 11/14/24 Empagliflozin [Jardiance] 10 mg PO DAILY 11/14/24 11/14/24 Sacubitril/Valsartan [Entresto 24 1 tab PO BID 07/03/25 07/03/25 mg-26 mg Tablet] Spironolactone [Aldactone] 25 mg PO DAILY 11/14/24 11/14/24 Allergies Allergy/AdvReac Type Severity Reaction Status Date / Time adhesive tape Allergy Rash/Hives Verified 11/13/24 23:15 banana Allergy THROAT Verified 11/13/24 23:15 FEELS SCRATCHY AND SWOLLEN codeine Allergy Itching Verified 11/13/24 23:15 diclofenac AdvReac joint & Verified 11/13/24 23:15 muscle pain, hands numb prochlorperazine edisylate AdvReac FEELING OF Verified 11/13/24 23:15 [From Compazine] BEING HOT AND IRRITABLE prochlorperazine maleate AdvReac FEELING OF Verified 11/13/24 23:15 [From Compazine] BEING HOT AND IRRITABLE muskmelon Allergy Severe THROAT Uncoded 11/13/24 23:15 FEELS SCRATCHY AND SWOLLEN Review of Systems ROS Statement: Those systems with pertinent positive or pertinent negative responses have been documented in the HPI. ROS Other: All systems not noted in ROS Statement are negative. Past Medical History Past Medical History: Asthma, Coronary Artery Disease (CAD), Chest Pain / Angina, Diabetes Mellitus, Hyperlipidemia, Hypertension, Myocardial Infarction (GA), Osteoarthritis (OA) Additional Past Medical History / Comment(s): HX: Severe ischemic cardiomyopathy, chronic stable asthma, SOB W/ ACTIVITY, DJD, HX DIVERTICULITIS, aortic valve leaking per pt, hx. kidney stones Last Myocardial Infarction Date:: 11/10/16 History of Any Multi-Drug Resistant Organisms: MRSA Date of last positivie culture/infection: 2010 MDRO Source:: AREAS TO NECK,BACK,AND ARMPIT Past Surgical History: AICD, Bowel Resection, Cholecystectomy, Heart Catheterization, Heart Catheterization With Stent, Hernia Repair, Orthopedic Surgery Additional Past Surgical History / Comment(s): multiple cardiac cath's w/stents, [employer] AICD. Colostomy with reversal, pain procedure, kidney stone surg., arthroscopy left knee Past Anesthesia/Blood Transfusion Reactions: Postoperative Nausea & Vomiting (PONV) Additional Past Anesthesia/Blood Transfusion Reaction / Comment(s): Pt has never received blood. PONV once years ago, nothing since Date of Last Stent Placement:: 02/23/15 Type of Cardiac Device: AICD Device Placement Date:: 2020 [employer] Past Psychological History: No Psychological Hx Reported Smoking Status: Never smoker - Past Family History Father Family Medical History: Chest Pain / Angina, Coronary Artery Disease (CAD), Hypertension, Myocardial Infarction (GA) Additional Family Medical History / Comment(s): CABG Mother Family Medical History: CVA/TIA Additional Family Medical History / Comment(s): right carotid endarterectomy, rheumatic fever Brother(s) Family Medical History: AICD/Pacemaker, Coronary Artery Disease (CAD), H ypertension Additional Family Medical History / Comment(s): CODED on treadmill at [facility], [place] Office General Exam - General Exam Comments Initial Comments: PE: CONSTITUTIONAL: [no apparent distress, well appearing] SKIN: [warm, dry, no jaundice, hives or petechiae] EYES:[ pupils are equally round, extraocular movements intact without nystagmus, clear conjunctiva, non-icteric sclera] HENT: [normocephalic, atraumatic, moist mucus membranes, oropharynx clear without exudates] NECK: , [Full range of motion, normal appearance] PULMONARY: [clear to auscultation without wheezes, rhonchi, or rales, normal excursion, no accessory muscle use and no stridor] CARDIOVASCULAR:[ regular rate, rhythm, normal S1 and S2. soft holosystolic murmur at left 2nd intercostal space. Strong radial pulses with intact distal perfusion. No lower extremity edema] GASTROINTESTINAL: [soft, active bowel sounds throughout, non-tender, non- distended, no palpable masses, no rebound or guarding. No hepatosplenomegaly] GENITOURINARY: MUSCULOSKELETAL: [Extremities have no gross deformity, no edema, redness, or swelling. No calf swelling ] NEUROLOGIC: [_a/o x 3, GCS 15, normal mentation and speech. Moves all extr emities x 4 without motor or sensory deficit] PSYCHIATRIC:[ _normal mood and affect, thought process is clear and linear] Limitations: no limitations Course Vital Signs 11/13/24 11/14/24 11/14/24 23:11 00:06 01:00 Temperature 97.5 F L Pulse Rate 96 100 92 Respiratory 22 18 18 Rate Blood Pressure 91/63 86/62 77/60 O2 Sat by Pulse 100 96 98 Oximetry 11/14/24 11/14/24 11/14/24 02:25 03:37 07:00 Temperature 97.9 F Pulse Rate 97 91 Respiratory 18 20 18 Rate Blood Pressure 81/62 79/57 O2 Sat by Pulse 96 97 Oximetry 11/14/24 11/14/24 11/14/24 08:19 10:25 12:55 Temperature Pulse Rate 91 87 88 Respiratory 17 14 18 Rate Blood Pressure 78/63 76/60 81/61 O2 Sat by Pulse 97 94 L 96 Oximetry 11/14/24 11/14/24 11/14/24 14:18 19:17 20:44 Temperature 98.1 F Pulse Rate 91 93 97 Respiratory 20 16 16 Rate Blood Pressure 85/66 85/60 97/64 O2 Sat by Pulse 94 L 99 97 Oximetry 11/14/24 11/15/24 11/15/24 22:08 00:40 01:56 Temperature 98 F Pulse Rate 93 92 92 Respiratory 16 16 16 Rate Blood Pressure 88/63 89/61 82/63 O2 Sat by Pulse 98 96 95 Oximetry 11/15/24 11/15/24 11/15/24 03:14 05:18 06:37 Temperature Pulse Rate 97 98 104 H Respiratory 16 18 18 Rate Blood Pressure 93/66 87/66 90/65 O2 Sat by Pulse 97 100 98 Oximetry 11/15/24 08:23 Temperature Pulse Rate 109 H Respiratory 18 Rate Blood Pressure 98/63 O2 Sat by Pulse 95 Oximetry - Reevaluation(s) Reevaluation #1: Patient did have an elevated troponin from 0.044. On reassessment his pain has resolved. Will start him on heparin out of concern for unstable angina, I did repeat an EKG, showed persistent T wave inversion lead V1, V2, does not appear to show worsening ST elevations or depressions 11/14/24 01:25 EKG Findings - EKG Comments: EKG Findings:: EKG #1 performed at 2323, showed rate 95 bpm sinus rhythm, intervals in acceptable limits, intermittent VPCs, T wave inversion lead V1 V2, no STEMI, no arrhythmia Medical Decision Making - Medical Decision Making Was pt. sent in by a medical professional or institution (, PA, BOTTOM FINISHER, urgent care, hospital, or [facility]...) When possible be specific @ -Patient was sent in by Dr. Yañez, his supervisor compounding and finishing Did you speak to anyone other than the patient for history (EMS, parent, family, police, friend...)? What history was obtained from this source @ -I spoke with Dr. Yañez, cardiology who called ahead and discussed pt's complex past medical hx, requests pt be admitted for echo, considered lasix, etc as indicated Did you review nursing and triage notes (agree or disagree)? Why? @ -I reviewed nursing and triage notes Were old charts reviewed (outside hosp., previous admission, EMS record, old EKG, old radiological studies, urgent care reports/EKG's, [facility] records)? Report findings @ -Medical records reviewed- Reviewed echo 09/07/23- EF 25-30% at that time Differential Diagnosis (chest pain, altered mental status, abdominal pain women, abdominal pain men, vaginal bleeding, weakness, fever, dyspnea, syncope, headache, dizziness, GI bleed, back pain, seizure, CVA, palpatations, mental health, musculoskeletal)? @Differential Dyspnea: Coronary syndrome, arrhythmia, tamponade, asthma, COPD, pulmonary embolism, pneumonia, pneumothorax, pulmonary effusion, anaphylaxis, diabetic ketoacidosis, flailed chest, pulmonary contusion, diaphragmatic rupture, anemia, neuromuscular, this is not meant to be an all-inclusive list. EKG interpreted by me (3pts min.). @ -As above X-rays interpreted by me (1pt min.). @ -Personally reviewed chest x-rays no evidence of consolidations, pleural effusions or pulmonary edema agree with radiologist interpretation CT interpreted by me (1pt min.). @ -None done U/S interpreted by me (1pt. min.). @ -None done What testing was considered but not performed or refused? (CT, X-rays, U/S, labs)? Why? @ -None What meds were considered but not given or refused? Why? @ IV fluids were considered due to borderline hypotension however pt has complex cardiac hx, and I suspect BP may be at least in part 2/2 aortic valve issues and medication side effect, pt appears euvolemic, IV fluids may worsen shortness of breath Did you discuss the management of the patient with other professionals (professionals i.e. , PA, BOTTOM FINISHER, lab, RT, psych nurse, geriatric social worker, community engagement representative, teacher, executive officer, case briefer)? Give summary @ -No Was smoking cessation discussed for >3mins.? @ -No Was critical care preformed (if so, how long)? @ Yes 35 minutes Were there social determinants of health that impacted care today? How? (Homelessness, low income, unemployed, alcoholism, drug addiction, transportation, low edu. Level, literacy, decrease access to med. care, correction, rehab)? @ -No Was there de-escalation of care discussed even if they declined (Discuss DNR or withdrawal of care, Hospice)? @ -No What co-morbidities impacted this encounter? (DM, HTN, Smoking, COPD, CAD, Cancer, CVA, ARF, Chemo, Hep., AIDS, mental health diagnosis, sleep apnea, morbid obesity)? @CAD, bicuspid aortic valve, aortic stenosis Was patient admitted / discharged? Hospital course, mention meds given and route, prescriptions, significant lab abnormalities, going to OR and other pertinent info. @Admission- This is a pleasant 58-year-old gentleman sent in today by his supervisor compounding and finishing, Dr. Cordova due to intermittent chest pain and shortness of breath. Patient has significant cardiac history and will require admission for cardiology consultation. Pt initially seen and assessed in triage hallway due to ED at overflow capacity. Obtained pt's permission to obain hx and perform initial assessment in hallway to which he was agreeable. BP 91/63 on arrival. Pt well appearing, pleasant, conversant. Soft holosystolic murmur noted on cardiac exam. No LE edema. Discussed with pt plan for ASA, admission, echo, possibly heparin out of concern for unstable angina due to intermittent tightness between shoulder blades (pt states has experienced similar when he required cardiac stent in the past and could potentially be chest pain equivalent). Pt agreeable with POC. Pt was roomed. Troponin mildly elevated 0.044. Heparin ordered out of concern for unstable angina vs angina. On reassessment pt endorsed improvement in pain. Updated pt to findings, discussed plan for admission. Of note, additionally, BNP ~9500. Ordered IV lasix. Case discussed with MINDY Rosen, who kindly accepted pt for admission. Undiagnosed new problem with uncertain prognosis? @ -No Drug Therapy requiring intensive monitoring for toxicity (Heparin, Nitro, Insulin, Cardizem)? @Heparin Were any procedures done? @ -No Diagnosis/symptom? @ unstable angina Acute, or Chronic, or Acute on Chronic? @ acute Uncomplicated (without systemic symptoms) or Complicated (systemic symptoms)? @complicated Side effects of treatment? @ -No Exacerbation, Progression, or Severe Exacerbation? @ -No Poses a threat to life or bodily function? How? (Chest pain, USA, GA, pneumonia, PE, COPD, DKA, ARF, appy, cholecystitis, CVA, Diverticulitis, Homicidal, Suicidal, threat to staff... and all critical care pts) @yes - Lab Data Result diagrams: 11/15/24 01:26 11/14/24 00:01 Lab Results 11/14/24 11/14/24 11/14/24 Range/Units 00:01 00:01 00:01 WBC 7.29 (4.50-10.00) 10*3/uL RBC 3.96 L (4.40-5.60) 10*6/uL Hgb 12.5 L (13.0-17.0) g/dL Hct 37.1 L (39.6-50.0) % MCV 93.7 (80.0-97.0) fL MCH 31.6 (27.0-32.0) pg MCHC 33.7 (32.0-37.0) g/dL Plt Count 235 (140-440) 10*3/uL MPV 10.1 (9.5-12.2) fL Immature Gran % (Auto) 0.4 % Neutrophils % 66.2 % Lymphocytes % 15.6 % Monocytes % 9.1 % Eosinophils % 8.0 % Basophils % 0.7 % Immature Gran # 0.03 (0.00-0.04) 10*3/uL Neutrophils # 4.83 (1.80-7.70) 10*3/uL Lymphocytes # 1.14 (0.90-5.00) 10*3/uL Monocytes # 0.66 (0.20-1.00) 10*3/uL Eosinophils # 0.58 H (0.04-0.35) 10*3/uL Basophils # 0.05 (0.00-0.10) 10*3/uL PT 11.7 (10.0-12.5) sec INR 1.1 (<1.2) APTT 25.9 (22.0-30.0) sec Sodium 138 (137-145) mmol/L Potassium 5.3 H (3.5-5.1) mmol/L Chloride 106 (98-107) mmol/L Carbon Dioxide 20 L (22-30) mmol/L Anion Gap 12 mmol/L BUN 36 H (9-20) mg/dL Creatinine 0.99 (0.66-1.25) mg/dL Est GFR (CKD-EPI)AfAm >90 (>60 ml/min/1.73 sqM) Est GFR (CKD-EPI)NonAf 82 (>60 ml/min/1.73 sqM) Glucose 167 H (74-99) mg/dL Calcium 9.5 (8.4-10.2) mg/dL Magnesium 2.2 (1.6-2.3) mg/dL Total Bilirubin 3.5 H (0.2-1.3) mg/dL AST 37 (17-59) U/L ALT 27 (4-49) U/L Alkaline Phosphatase 96 (38-126) U/L Troponin I (0.000-0.034) ng/mL NT-Pro-B Natriuret Pep 9500 pg/mL Total Protein 6.5 (6.3-8.2) g/dL Albumin 3.8 (3.5-5.0) g/dL 11/14/24 11/14/24 11/14/24 Range/Units 00:01 02:41 08:15 WBC (4.50-10.00) 10*3/uL RBC (4.40-5.60) 10*6/uL Hgb (13.0-17.0) g/dL Hct (39.6-50.0) % MCV (80.0-97.0) fL MCH (27.0-32.0) pg MCHC (32.0-37.0) g/dL Plt Count (140-440) 10*3/uL MPV (9.5-12.2) fL Immature Gran % (Auto) % Neutrophils % % Lymphocytes % % Monocytes % % Eosinophils % % Basophils % % Immature Gran # (0.00-0.04) 10*3/uL Neutrophils # (1.80-7.70) 10*3/uL Lymphocytes # (0.90-5.00) 10*3/uL Monocytes # (0.20-1.00) 10*3/uL Eosinophils # (0.04-0.35) 10*3/uL Basophils # (0.00-0.10) 10*3/uL PT (10.0-12.5) sec INR (<1.2) APTT 35.6 H (22.0-30.0) sec Sodium (137-145) mmol/L Potassium (3.5-5.1) mmol/L Chloride (98-107) mmol/L Carbon Dioxide (22-30) mmol/L Anion Gap mmol/L BUN (9-20) mg/dL Creatinine (0.66-1.25) mg/dL Est GFR (CKD-EPI)AfAm (>60 ml/min/1.73 sqM) Est GFR (CKD-EPI)NonAf (>60 ml/min/1.73 sqM) Glucose (74-99) mg/dL Calcium (8.4-10.2) mg/dL Magnesium (1.6-2.3) mg/dL Total Bilirubin (0.2-1.3) mg/dL AST (17-59) U/L ALT (4-49) U/L Alkaline Phosphatase (38-126) U/L Troponin I 0.044 H* 0.047 H* (0.000-0.034) ng/mL NT-Pro-B Natriuret Pep pg/mL Total Protein (6.3-8.2) g/dL Albumin (3.5-5.0) g/dL 11/14/24 Range/Units 08:15 WBC (4.50-10.00) 10*3/uL RBC (4.40-5.60) 10*6/uL Hgb (13.0-17.0) g/dL Hct (39.6-50.0) % MCV (80.0-97.0) fL MCH (27.0-32.0) pg MCHC (32.0-37.0) g/dL Plt Count (140-440) 10*3/uL MPV (9.5-12.2) fL Immature Gran % (Auto) % Neutrophils % % Lymphocytes % % Monocytes % % Eosinophils % % Basophils % % Immature Gran # (0.00-0.04) 10*3/uL Neutrophils # (1.80-7.70) 10*3/uL Lymphocytes # (0.90-5.00) 10*3/uL Monocytes # (0.20-1.00) 10*3/uL Eosinophils # (0.04-0.35) 10*3/uL Basophils # (0.00-0.10) 10*3/uL PT (10.0-12.5) sec INR (<1.2) APTT (22.0-30.0) sec Sodium (137-145) mmol/L Potassium (3.5-5.1) mmol/L Chloride (98-107) mmol/L Carbon Dioxide (22-30) mmol/L Anion Gap mmol/L BUN (9-20) mg/dL Creatinine (0.66-1.25) mg/dL Est GFR (CKD-EPI)AfAm (>60 ml/min/1.73 sqM) Est GFR (CKD-EPI)NonAf (>60 ml/min/1.73 sqM) Glucose (74-99) mg/dL Calcium (8.4-10.2) mg/dL Magnesium (1.6-2.3) mg/dL Total Bilirubin (0.2-1.3) mg/dL AST (17-59) U/L ALT (4-49) U/L Alkaline Phosphatase (38-126) U/L Troponin I 0.035 H* (0.000-0.034) ng/mL NT-Pro-B Natriuret Pep pg/mL Total Protein (6.3-8.2) g/dL Albumin (3.5-5.0) g/dL Disposition Clinical Impression: Unstable angina Disposition: ADMITTED IP TO THIS [facility] Condition: Stable
[2024-11-14] MEDS: ASPIRIN 81 MG PO STA (00:02)
[2024-11-14 00:26] LABS: INR 1.1 (<1.2); Partial Thromboplastin Time 25.9 sec (22.0-30.0); Prothrombin Time 11.7 sec (10.0-12.5)
[2024-11-14 00:41] LABS: ALT 27 U/L (4-49); African American GFR (CKD) >90 (>60 ml/min/1.73 sqM); Albumin 3.8 g/dL (3.5-5.0); Anion Gap 12 mmol/L; Blood Urea Nitrogen 36 mg/dL (9-20); Calcium 9.5 mg/dL (8.4-10.2); Carbon Dioxide 20 mmol/L (22-30); Chloride 106 mmol/L (98-107); Glucose 167 mg/dL (74-99); Non-African American GFR(CKD) 82 (>60 ml/min/1.73 sqM); Sodium 138 mmol/L (137-145); Total Protein 6.5 g/dL (6.3-8.2)
[2024-11-14 00:43] LABS: Basophils # (A) 0.05 10*3/uL (0.00-0.10); Basophils % (A) 0.7 %; Eosinophils # (A) 0.58 10*3/uL (0.04-0.35); Eosinophils % (A) 8.0 %; HCT 37.1 % (39.6-50.0); HGB 12.5 g/dL (13.0-17.0); Lymphocytes # (A) 1.14 10*3/uL (0.90-5.00); Lymphocytes % (A) 15.6 %; MCH 31.6 pg (27.0-32.0); MCHC 33.7 g/dL (32.0-37.0); MCV 93.7 fL (80.0-97.0); Monocytes # (A) 0.66 10*3/uL (0.20-1.00); Monocytes % (A) 9.1 %; Neutrophils # (A) 4.83 10*3/uL (1.80-7.70); Neutrophils % (A) 66.2 %; Platelet Count 235 10*3/uL (140-440); RBC 3.96 10*6/uL (4.40-5.60); RDW 14.2 % (11.5-14.5); WBC 7.29 10*3/uL (4.50-10.00)
[2024-11-14 00:49] LABS: NT-Pro-B-Type Natriuretic Pept 9500 pg/mL
[2024-11-14 00:52] LABS: AST 37 U/L (17-59); Alkaline Phosphatase 96 U/L (38-126); Magnesium 2.2 mg/dL (1.6-2.3); Potassium 5.3 mmol/L (3.5-5.1)
--- NOTE | 2024-11-14 00:56 | XR ---
EXAM: XR Chest, 2 Views CLINICAL HISTORY: difficulty breathing TECHNIQUE: Frontal and lateral views of the chest. COMPARISON: 04/18/2014 FINDINGS: Lungs: Unremarkable. No consolidation. Pleural space: Unremarkable. Mediastinum: Unremarkable. Normal mediastinal contour. Bones/joints: No acute findings. Tubes, lines and devices: Left pacer is again noted. IMPRESSION: No acute findings in the chest.
[2024-11-14] MEDS ORDERED: ACETAMINOPHEN TAB 325 MG TAB PO PRN (01:21)
[2024-11-14] MEDS ORDERED: NALOXONE 0.4 MG/ML 1 ML VIAL IV PRN (01:21)
[2024-11-14] MEDS: FUROSEMIDE 10 MG/ML 4 ML VIAL IV STA (02:10)
[2024-11-14] MEDS: HEPARIN SOD,PORK IN 0.45% NACL 25,000 UNIT in 0.45% NACL 1 250ML.BAG IV SCH (02:20)
[2024-11-14] MEDS: HEPARIN SODIUM 1,000 UN/ML (10ML VL) IV ONE (02:20)
[2024-11-14] MEDS ORDERED: NITROGLYCERIN SL TABS 0.4 MG TAB SUBLINGUAL PRN (04:42)
[2024-11-14] MEDS ORDERED: HYDROcodone/APAP 5-325MG 1 EACH TAB PO PRN (04:42)
[2024-11-14] MEDS: diphenhydrAMINE 50 MG/ML 1 ML VIAL IVP STA (05:40)
[2024-11-14] MEDS: GLIMEPIRIDE 1 MG TAB PO SCH (07:13)
[2024-11-14] MEDS: ASPIRIN 81 MG PO SCH (08:21)
[2024-11-14] MEDS: metFORMIN 500 MG TAB PO SCH (08:21)
[2024-11-14] MEDS: PANTOPRAZOLE 40 MG/10 ML VIAL IV SCH (08:21)
[2024-11-14] MEDS: METOPROLOL SUCCINATE (ER) 100 MG TAB.ER.24H PO SCH (08:22)
[2024-11-14] MEDS ORDERED: FUROSEMIDE 40 MG TAB PO PRN (09:00)
[2024-11-14] MEDS: traMADol 50 MG TAB PO PRN (09:42)
[2024-11-14] MEDS: HEPARIN SODIUM 1,000 UN/ML (10ML VL) IV PRN (11:17)
--- NOTE | 2024-11-14 12:22 | P.CRDCN ---
History of Present Illness Consult date: 11/14/24 Reason for Consult (text): Unstable angina History of present illness: This is 58-year-old male patient of Dr. Yañez with past medical history of coronary artery disease with prior stenting of the RCA and LAD, ischemic cardiomyopathy status post AICD, NSVT, valvular heart disease with known bicuspid aortic valve with AAS and AI as well as MR and TR, pulmonary hypertension, diabetes, hypertension, dyslipidemia, dilated ascending aorta. We have been asked to evaluate the patient for unstable angina. Patient was last seen in the office on 11/05/2024. Patient is undergoing workup at [facility] for severe symptomatic aortic stenosis and also considered for possible mitral valve clip. Patient states that he came into the hospital because he was having difficulty breathing which is improved. He denies chest pain. Patient w as seen by his PCP and had a low blood pressure shortness of breath and tachycardia and upon Dr. Yañez's recommendations, patient was sent into the hospital. He has had some dizziness lightheadedness. Patient denies any recent syncopal episodes. He has been started on heparin drip. Patient is seen today in the emergency center waiting for bed on the cardiac stepdown unit. Blood pressure 79/57, heart rate 91, pulse ox 97% on 2 L nasal cannula. -EKG: Sinus rhythm with nonspecific ST-T wave changes, occasional PVCs, 94 bpm. -Chest x-ray: No acute process. -Laboratory studies: Troponin 0.044, 0.047. proBNP 9500. WBC 7.2, hemoglobin 12.5, sodium 138, potassium 5.3, BUN 36 and creatinine 0.99. -Home cardiac medications: Aspirin 81 mg daily, atorvastatin 80 mg daily, Entresto 24-26 mg 1 tablet twice daily, Jardiance 10 mg daily, Lasix 40 mg daily, metoprolol succinate 100 mg daily, Nitrostat as needed, spironolactone 25 mg daily. -Cardiac catheterization performed 07/19/2024 revealed elevated biventricular filling pressures. Severe pulmonary hypertension secondary to who group 2. No evidence of high-grade stenosis in the coronary arteries. -VANESSA performed 07/19/2024 revealed dilated LV with EF 30 to 35%. Heavily calcified aortic valve with bicuspid versus unicuspid valve with moderate aortic regurgitation and mean gradient of 38 mmHg. Mild to moderate MR. -Generator replacement single-chamber ICD Medtronic 08/10/2020. -Lexiscan Cardiolite stress test performed 03/02/2023 revealed large anterior scar. Review Of Systems: At the time of my exam: CONSTITUTIONAL: Denies fever or chills. HEENT: Denies blurred vision, vision changes, or eye pain. Denies hemoptysis CARDIOVASCULAR: Denies chest pain. Denies orthopnea. Denies PND. Denies palpitations RESPIRATORY: Reports dyspnea on exertion, reports shortness of breath. GASTROINTESTINAL: Denies abdominal pain. Denies nausea or vomiting. HEMATOLOGIC: Denies bleeding disorders. GENITOURINARY: Denies any blood in urine. SKIN: Denies puritis. Denies rash. Physical examination: Gen: This is 58-year-old male patient in no acute distress. VS: reviewed HEENT: Head is atraumatic, normocephalic. Pupils equal, round. Sclerae is anicteric. NECK: Supple. No JVD. LUNGS: Diminished breath sounds. No intercostal retractions. HEART: Regular rate and rhythm. Crescendo decrescendo murmur at the right and left upper sternal border decreased S2. ABDOMEN: Soft No tenderness. EXTREMITIES: No pedal edema. No calf tenderness. NEUROLOGICAL: Patient is awake, alert and oriented x3. Assessment: Unstable angina Hypotension History of coronary artery disease with prior stenting of the RCA and LAD with READING RECOV[employer] TE[employer] of the left circumflex Ischemic cardiomyopathy status post AICD NSVT Valvular heart disease with known bicuspid aortic valve with AAS and AI, MR and TR undergoing workup at [facility] Pulmonary hypertension Hypertension Dyslipidemia Dilated ascending aorta Plan: Resume patient's home cardiac medications with the following changes: Hold Entresto, Lasix, spironolactone due to hypotension Continue heparin drip Obtain third troponin Obtain urgent 2-D echocardiogram and Doppler study to assess cardiac structure and function Further recommendations to follow based upon clinical course Thank you kindly for this consultation. Nurse practitioner note has been reviewed, I agree with documented findings and plan of care. Patient was seen and examined. Past Medical History Past Medical History: Asthma, Coronary Artery Disease (CAD), Chest Pain / Angina, Diabetes Mellitus, Hyperlipidemia, Hypertension, Myocardial Infarction ([place]), Osteoarthritis (OA) Additional Past Medical History / Comment(s): HX: Severe ischemic cardiomyopathy, chronic stable asthma, SOB W/ ACTIVITY, DJD, HX DIVERTICULITIS, aortic valve leaking per pt, hx. kidney stones Last Myocardial Infarction Date:: 11/10/16 History of Any Multi-Drug Resistant Organisms: MRSA Date of last positivie culture/infection: 2010 MDRO Source:: AREAS TO NECK,BACK,AND ARMPIT Past Surgical History: AICD, Bowel Resection, Cholecystectomy, Heart Catheterization, Heart Catheterization With Stent, Hernia Repair, Orthopedic Surgery Additional Past Surgical History / Comment(s): multiple cardiac cath's w/stents, MEDTRONIC AICD. Colostomy with reversal, pain procedure, kidney stone surg., arthroscopy left knee Past Anesthesia/Blood Transfusion Reactions: Postoperative Nausea & Vomiting (PONV) Additional Past Anesthesia/Blood Transfusion Reaction / Comment(s): Pt has never received blood. PONV once years ago, nothing since Date of Last Stent Placement:: 02/23/15 Type of Cardiac Device: AICD Device Placement Date:: 2020 Medtronic Past Psychological History: No Psychological Hx Reported Smoking Status: Never smoker - Past Family History Father Family Medical History: Chest Pain / Angina, Coronary Artery Disease (CAD), Hypertension, Myocardial Infarction ([place]) Additional Family Medical History / Comment(s): CABG Mother Family Medical History: CVA/TIA Additional Family Medical History / Comment(s): right carotid endarterectomy, rheumatic fever Brother(s) Family Medical History: AICD/Pacemaker, Coronary Artery Disease (CAD), Hypertension Additional Family Medical History / Comment(s): CODED on treadmill at [facility] Office Medications and Allergies Home Medications Medication Instructions Recorded Confirmed Type Enalapril [Vasotec] 2.5 mg PO DAILY 10/10/13 11/14/24 History Nitroglycerin Sl Tabs [Nitrostat] 0.4 mg SL Q5M PRN 10/10/13 11/14/24 History traMADol HCL [Ultram] 50 mg PO Q6HR PRN 05/11/20 11/14/24 History metFORMIN HCL [Glucophage] 500 mg PO BID 08/07/20 11/14/24 History Atorvastatin [Lipitor] 80 mg PO HS 09/04/23 11/14/24 History Dulaglutide [Trulicity] 3 mg SQ TH 09/04/23 11/14/24 History Glimepiride [Amaryl] 1 mg PO AC-BRKFST 09/04/23 11/14/24 History Metoprolol Succinate [Toprol XL] 100 mg PO DAILY 09/04/23 11/14/24 History Furosemide [Lasix] 40 mg PO DAILY PRN 06/20/24 11/14/24 History Aspirin [Adult Low Dose Aspirin EC] 81 mg PO DAILY 07/19/24 11/14/24 History Empagliflozin [Jardiance] 10 mg PO DAILY 11/14/24 11/14/24 History Sacubitril/Valsartan [Entresto 24 1 tab PO BID 11/14/24 11/14/24 History mg-26 mg Tablet] Spironolactone [Aldactone] 25 mg PO DAILY 11/14/24 11/14/24 History Allergies Allergy/AdvReac Type Severity Reaction Status Date / Time adhesive tape Allergy Rash/Hives Verified 11/13/24 23:15 banana Allergy THROAT Verified 11/13/24 23:15 FEELS SCRATCHY AND SWOLLEN codeine Allergy Itching Verified 11/13/24 23:15 diclofenac AdvReac joint & Verified 11/13/24 23:15 muscle pain, hands numb prochlorperazine edisylate AdvReac FEELING OF Verified 11/13/24 23:15 [From Compazine] BEING HOT AND IRRITABLE prochlorperazine maleate AdvReac FEELING OF Verified 11/13/24 23:15 [From Compazine] BEING HOT AND IRRITABLE muskmelon Allergy Severe THROAT Uncoded 11/13/24 23:15 FEELS SCRATCHY AND SWOLLEN Physical Exam Vitals: Vital Signs Temp Pulse Resp BP Pulse Ox 11/14/24 07:00 91 18 79/57 97 11/14/24 03:37 97.9 F 97 20 81/62 96 11/14/24 02:25 18 11/14/24 01:00 92 18 77/60 98 11/14/24 00:06 100 18 86/62 96 11/13/24 23:11 97.5 F L 96 22 91/63 100 Intake and Output 11/13/24 11/14/24 11/14/24 22:59 06:59 14:59 Other: Weight 78.925 kg Results 11/14/24 00:01 11/14/24 00:01 Cardiac Enzymes 11/14/24 11/14/24 11/14/24 Range/Units 00:01 00:01 02:41 AST 37 (17-59) U/L Troponin I 0.044 H* 0.047 H* (0.000-0.034) ng/mL Coagulation 11/14/24 Range/Units 00:01 PT 11.7 (10.0-12.5) sec APTT 25.9 (22.0-30.0) sec CBC 11/14/24 Range/Units 00:01 WBC 7.29 (4.50-10.00) 10*3/uL RBC 3.96 L (4.40-5.60) 10*6/uL Hgb 12.5 L (13.0-17.0) g/dL Hct 37.1 L (39.6-50.0) % Plt Count 235 (140-440) 10*3/uL Comprehensive Metabolic Panel 11/14/24 Range/Units 00:01 Sodium 138 (137-145) mmol/L Potassium 5.3 H (3.5-5.1) mmol/L Chloride 106 (98-107) mmol/L Carbon Dioxide 20 L (22-30) mmol/L BUN 36 H (9-20) mg/dL Creatinine 0.99 (0.66-1.25) mg/dL Glucose 167 H (74-99) mg/dL Calcium 9.5 (8.4-10.2) mg/dL AST 37 (17-59) U/L ALT 27 (4-49) U/L Alkaline Phosphatase 96 (38-126) U/L Total Protein 6.5 (6.3-8.2) g/dL Albumin 3.8 (3.5-5.0) g/dL Current Medications Generic Name Dose Route Start Last Admin Trade Name Freq PRN Reason Stop Dose Admin Acetaminophen 650 mg 11/14/24 01:21 Acetaminophen Tab 325 Mg Tab PO Q6HR PRN Mild Pain or Fever > 100.5 Hydrocodone Bitart/Acetaminophen 1 each 11/14/24 04:42 Hydrocodone/Apap 5-325mg 1 Each Tab PO Q6HR PRN Pain Aspirin 81 mg 11/14/24 09:00 Aspirin 81 Mg PO DAILY MERLE Atorvastatin Calcium 80 mg 11/14/24 21:00 Atorvastatin 80 Mg Tab PO HS MERLE Furosemide 40 mg 11/14/24 09:00 Furosemide 40 Mg Tab PO DAILY PRN Edema Glimepiride 1 mg 11/14/24 07:30 11/14/24 07:13 Glimepiride 1 Mg Tab PO Not Given AC-BRKFST [facility] Heparin Sodium (Porcine) 0 unit 11/14/24 01:19 Heparin Sodium 1,000 Un/Ml (10ml Vl) IV PER PROTOCOL PRN Low PTT Protocol Heparin Sodium/Sodium Chloride 250 mls @ 9.471 mls/hr 11/14/24 01:30 11/14/24 02:20 25,000 unit/ Sodium Chloride IV 12 units/kg/hr .Q24H MERLE 9.471 mls/hr Administration Protocol 12 UNITS/KG/HR Lisinopril 2.5 mg 11/14/24 09:00 Lisinopril 2.5 Mg Tab PO DAILY [facility] Metformin HCl 500 mg 11/14/24 09:00 Metformin 500 Mg Tab PO BID [facility] Metoprolol Succinate 100 mg 11/14/24 09:00 Metoprolol Succinate (Er) 100 Mg Tab.Er.24h PO DAILY [facility] Naloxone HCl 0.2 mg 11/14/24 01:21 Naloxone 0.4 Mg/Ml 1 Ml Vial IV Q2M PRN Opioid Reversal Nitroglycerin 0.4 mg 11/14/24 04:42 Nitroglycerin Sl Tabs 0.4 Mg Tab SUBLINGUAL Q5M PRN Chest Pain Non-Formulary Medication 3 mg 11/20/24 09:00 Dulaglutide [Trulicity] SQ WE [facility] Pantoprazole Sodium 40 mg 11/14/24 09:00 Pantoprazole 40 Mg/10 Ml Vial IV DAILY [facility] Tizanidine HCl 2 mg 11/14/24 04:42 Tizanidine 4 Mg Tab PO TID PRN Muscle Spasticity Tramadol HCl 50 mg 11/14/24 04:42 Tramadol 50 Mg Tab PO Q6HR PRN Pain Intake and Output 11/13/24 11/14/24 11/14/24 22:59 06:59 14:59 Other: Weight 78.925 kg 11/14/24 00:01 11/14/24 00:01
[2024-11-14] MEDS ORDERED: DEXTROSE 50% SYRINGE 50 ML IVP PRN ×2 (12:24)
--- NOTE | 2024-11-14 12:27 | P.HPIM ---
History of Present Illness H&P Date: 11/14/24 Chief Complaint: Short of breath Pleasant 58-year-old patient who follows with Dr. Deborah Thompson. 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 Chronic medical conditions include CAD, diabetes, hypertension, hyperlipidemia, osteoarthritis. Has severe ischemic cardiomyopathy. Had a stent placed several years ago. He has been to [facility] has an appointment for December 09. Supposed to have valve intervention. Exact details unknown currently to me. Possibly arctic valve. For 2 weeks patient's become increasingly short of breath. Does get some pain between his shoulder blades. But predominant symptom is shortness of breath. No edema. No orthopnea. Patient's troponins were positive in the ER. Placed on IV heparin. At rest no chest pain. Review of systems: GEN.: Tired EYES: None HEENT: None NECK: None RESPIRATORY: [As above CARDIOVASCULAR: As above GASTROINTESTINAL: None GENITOURINARY: None MUSCULOSKELETAL: None LYMPHATICS: None HEMATOLOGICAL: None PSYCHIATRY: None NEUROLOGICAL: None Social history: Lives with his . On disability. Non-smoker. Alcohol rarely. Physical examination: VITAL SIGNS: 97.9, 87, 14, 76 x 60, 94% on 2 L GENERAL: BMI 26.5, reclining bed awake comfortable. EYES: Pupils equal. Conjunctiva keiry l. HEENT: External appearance of nose and ears normal, oral cavity grossly normal. NECK: JVD not raised; masses not palpable. HEART: First and second heart sounds are normal; no edema. LUNGS: Respiratory rate normal; clear to auscultation. ABDOMEN: Soft, nontender, liver spleen not palpable, no masses palpable. PSYCH: Alert and oriented x3; mood and affect keiry l. MUSCULOSKELETAL:No Clubbing/cyanosis;muscles-grossly intact NEUROLOGICAL: Cranial nerves grossly intact; no facial asymmetry, power and s ensation grossly intact. LYMPHATICS: No lymph nodes palpable in the axilla and neck INVESTIGATIONS, reviewed in the clinical context: November 14, 2024: White count 7.2 hemoglobin 12.5 platelets 235 sodium 138 potassium 5.3 BUN 36 creatinine 0.99 Troponin I 0.044, 0.047, 0.035. proBNP 9500 EKG tracing personally reviewed by me-normal sinus rhythm. PVCs. ST segment depression in several leads. Abnormal T waves. Chest x-ray film personally reviewed by me-cardiomegaly. Assessment plan: - Acute non-Q wave NM. With preceding unstable angina Patient has underlying CAD with stent several years ago. No recent cardiac catheterization. For 2 weeks patient increasingly short of breath. Some pain between the shoulder blades with activity. Patient has known valve disease and due for intervention at [facility] on December 09. Patient may have underlying progression of CAD. IV heparin. Aspirin. Toprol-XL. -IV heparin, per protocol - Ischemic cardiomyopathy. Currently EF not known. 2D echo. Aldactone. Entresto. Lasix. Toprol-XL. Jardiance. - Hyperlipidemia Lipitor 80 mg nightly - Diabetes mellitus type 2 Trulicity. Jardiance. Amaryl-hold. Glucophage. Diabetic diet. Accu-Cheks with sliding scale insulin - Primary osteoarthritis Pain medication as needed - Coronary artery disease with stent previously Follows with Dr. Yañez - Valvular heart disease. Including arctic valve. 2D echo. Patient has followed at [facility]. Has appointment there in December 09 Full code. Past Medical History Past Medical History: Asthma, Coronary Artery Disease (CAD), Chest Pain / Angina, Diabetes Mellitus, Hyperlipidemia, Hypertension, Myocardial Infarction (NM), Osteoarthritis (OA) Additional Past Medical History / Comment(s): HX: Severe ischemic cardiomyopathy, chronic stable asthma, SOB W/ ACTIVITY, DJD, HX DIVERTICULITIS, aortic valve leaking per pt, hx. kidney stones Last Myocardial Infarction Date:: 11/10/16 History of Any Multi-Drug Resistant Organisms: MRSA Date of last positivie culture/infection: 2010 MDRO Source:: AREAS TO NECK,BACK,AND ARMPIT Past Surgical History: AICD, Bowel Resection, Cholecystectomy, Heart Catheterization, Heart Catheterization With Stent, Hernia Repair, Orthopedic Surgery Additional Past Surgical History / Comment(s): multiple cardiac cath's w/stents, MEDTRONIC AICD. Colostomy with reversal, pain procedure, kidney stone surg., arthroscopy left knee Past Anesthesia/Blood Transfusion Reactions: Postoperative Nausea & Vomiting (PONV) Additional Past Anesthesia/Blood Transfusion Reaction / Comment(s): Pt has never received blood. PONV once years ago, nothing since Date of Last Stent Placement:: 02/23/15 Type of Cardiac Device: AICD Device Placement Date:: 2020 Medtronic Past Psychological History: No Psychological Hx Reported Smoking Status: Never smoker - Past Family History Father Family Medical History: Chest Pain / Angina, Coronary Artery Disease (CAD), Hypertension, Myocardial Infarction (NM) Additional Family Medical History / Comment(s): CABG Mother Family Medical History: CVA/TIA Additional Family Medical History / Comment(s): right carotid endarterectomy, rh eumatic fever Brother(s) Family Medical History: AICD/Pacemaker, Coronary Artery Disease (CAD), Hypertension Additional Family Medical History / Comment(s): CODED on treadmill at [facility] Office Medications and Allergies Home Medications Medication Instructions Recorded Confirmed Type Enalapril [Vasotec] 2.5 mg PO DAILY 10/10/13 11/14/24 History Nitroglycerin Sl Tabs [Nitrostat] 0.4 mg SL Q5M PRN 10/10/13 11/14/24 History traMADol HCL [Ultram] 50 mg PO Q6HR PRN 05/11/20 11/14/24 History metFORMIN HCL [Glucophage] 500 mg PO BID 08/07/20 11/14/24 History Atorvastatin [Lipitor] 80 mg PO HS 09/04/23 11/14/24 History Dulaglutide [Trulicity] 3 mg SQ TH 09/04/23 11/14/24 History Glimepiride [Amaryl] 1 mg PO AC-BRKFST 09/04/23 11/14/24 History Metoprolol Succinate [Toprol XL] 100 mg PO DAILY 09/04/23 11/14/24 History Furosemide [Lasix] 40 mg PO DAILY PRN 06/20/24 11/14/24 History Aspirin [Adult Low Dose Aspirin EC] 81 mg PO DAILY 07/19/24 11/14/24 History Empagliflozin [Jardiance] 10 mg PO DAILY 11/14/24 11/14/24 History Sacubitril/Valsartan [Entresto 24 1 tab PO BID 11/14/24 11/14/24 History mg-26 mg Tablet] Spironolactone [Aldactone] 25 mg PO DAILY 11/14/24 11/14/24 History Allergies Allergy/AdvReac Type Severity Reaction Status Date / Time adhesive tape Allergy Rash/Hives Verified 11/13/24 23:15 banana Allergy THROAT Verified 11/13/24 23:15 FEELS SCRATCHY AND SWOLLEN codeine Allergy Itching Verified 11/13/24 23:15 diclofenac AdvReac joint & Verified 11/13/24 23:15 muscle pain, hands numb prochlorperazine edisylate AdvReac FEELING OF Verified 11/13/24 23:15 [From Compazine] BEING HOT AND IRRITABLE prochlorperazine maleate AdvReac FEELING OF Verified 11/13/24 23:15 [From Compazine] BEING HOT AND IRRITABLE muskmelon Allergy Severe THROAT Uncoded 11/13/24 23:15 FEELS SCRATCHY AND SWOLLEN Physical Exam Vitals: Vital Signs Temp Pulse Resp BP Pulse Ox 11/14/24 10:25 87 14 76/60 94 L 11/14/24 08:19 91 17 78/63 97 11/14/24 07:00 91 18 79/57 97 11/14/24 03:37 97.9 F 97 20 81/62 96 11/14/24 02:25 18 11/14/24 01:00 92 18 77/60 98 11/14/24 00:06 100 18 86/62 96 11/13/24 23:11 97.5 F L 96 22 91/63 100 Intake and Output 11/13/24 11/14/24 11/14/24 22:59 06:59 14:59 Intake Total 84.134 Output Total 1650 Balance -1565.866 Intake: Intake, IV Titration 84.134 Amount Heparin Sod,Pork in 0.45% 84.134 NaCl 25,000 unit In 0.45 % NaCl 1 250ml.bag @ 12 UNITS/KG/HR 9.471 mls/hr IV .Q24H [facility] Rx#: [id number] Output: Urine 1650 Other: Weight 78.925 kg Results CBC & Chem 7: 11/14/24 00:01 11/14/24 00:01 Labs: Abnormal Lab Results - Last 24 Hours (Table) 11/14/24 11/14/24 11/14/24 Range/Units 00:01 00:01 00:01 RBC 3.96 L (4.40-5.60) 10*6/uL Hgb 12.5 L (13.0-17.0) g/dL Hct 37.1 L (39.6-50.0) % Eosinophils # 0.58 H (0.04-0.35) 10*3/uL APTT (22.0-30.0) sec Potassium 5.3 H (3.5-5.1) mmol/L Carbon Dioxide 20 L (22-30) mmol/L BUN 36 H (9-20) mg/dL Glucose 167 H (74-99) mg/dL Total Bilirubin 3.5 H (0.2-1.3) mg/dL Troponin I 0.044 H* (0.000-0.034) ng/mL 11/14/24 11/14/24 11/14/24 Range/Units 02:41 08:15 08:15 RBC (4.40-5.60) 10*6/uL Hgb (13.0-17.0) g/dL Hct (39.6-50.0) % Eosinophils # (0.04-0.35) 10*3/uL APTT 35.6 H (22.0-30.0) sec Potassium (3.5-5.1) mmol/L Carbon Dioxide (22-30) mmol/L BUN (9-20) mg/dL Glucose (74-99) mg/dL Total Bilirubin (0.2-1.3) mg/dL Troponin I 0.047 H* 0.035 H* (0.000-0.034) ng/mL
[2024-11-14 12:50] LABS: Glucose,Whole Blood 107 mg/dL (70-110)
[2024-11-14] MEDS: INSULIN LISPRO (HumaLOG) 100 UNIT/ML 10 mL VL SQ SCH (12:56)
[2024-11-14 17:33] LABS: Glucose,Whole Blood 164 mg/dL (70-110)
[2024-11-14] MEDS: ATORVASTATIN 80 MG TAB PO SCH (20:07)
[2024-11-15 01:47] LABS: Basophils # (A) 0.05 10*3/uL (0.00-0.10); Basophils % (A) 0.7 %; Eosinophils # (A) 0.71 10*3/uL (0.04-0.35); Eosinophils % (A) 10.2 %; HCT 34.9 % (39.6-50.0); HGB 11.7 g/dL (13.0-17.0); Lymphocytes # (A) 1.21 10*3/uL (0.90-5.00); Lymphocytes % (A) 17.5 %; MCH 31.0 pg (27.0-32.0); MCHC 33.5 g/dL (32.0-37.0); MCV 92.6 fL (80.0-97.0); Monocytes # (A) 0.55 10*3/uL (0.20-1.00); Monocytes % (A) 7.9 %; Neutrophils # (A) 4.39 10*3/uL (1.80-7.70); Neutrophils % (A) 63.4 %; Platelet Count 193 10*3/uL (140-440); RBC 3.77 10*6/uL (4.40-5.60); RDW 13.9 % (11.5-14.5); WBC 6.93 10*3/uL (4.50-10.00)
[2024-11-15 02:27] LABS: INR 1.1 (<1.2); Partial Thromboplastin Time 37.1 sec (22.0-30.0); Prothrombin Time 12.4 sec (10.0-12.5)
[2024-11-15 07:51] LABS: Glucose,Whole Blood 109 mg/dL (70-110)
--- NOTE | 2024-11-15 09:04 | P.PN ---
Subjective Progress Note Date: 11/15/24 Reason for Consult (text): Unstable angina History of present illness: This is 58-year-old male patient of Dr. Yañez with past medical history of coronary artery disease with prior stenting of the RCA and LAD, ischemic cardiomyopathy status post AICD, NSVT, valvular heart disease with known bicuspid aortic valve with AAS and AI as well as MR and TR, pulmonary hypertension, diabetes, hypertension, dyslipidemia, dilated ascending aorta. We have been asked to evaluate the patient for unstable angina. Patient was last seen in the office on 11/05/2024. Patient is undergoing workup at [facility] for severe symptomatic aortic stenosis and also considered for possible mitral valve clip. Patient states that he came into the hospital because he was having difficulty breathing which is improved. He denies chest pain. Patient was seen by his PCP and had a low blood pressure shortness of breath and tachycardia and upon Dr. Yañez's recommendations, patient was sent into the hospital. He has had some dizziness lightheadedness. Patient denies any recent syncopal episodes. He has been started on heparin drip. Patient is seen today in the emergency center waiting for bed on the cardiac stepdown unit. Blood pressure 79/57, heart rate 91, pulse ox 97% on 2 L nasal cannula. -EKG: Sinus rhythm with nonspecific ST-T wave changes, occasional PVCs, 94 bpm. -Chest x-ray: No acute process. -Laboratory studies: Troponin 0.044, 0.047. proBNP 9500. WBC 7.2, hemoglobin 12.5, sodium 138, potassium 5.3, BUN 36 and creatinine 0.99. -Home cardiac medications: Aspirin 81 mg daily, atorvastatin 80 mg daily, Entresto 24-26 mg 1 tablet twice daily, Jardiance 10 mg daily, Lasix 40 mg daily, metoprolol succinate 100 mg daily, Nitrostat as needed, spironolactone 25 mg daily. -Cardiac catheterization performed 07/19/2024 revealed elevated biventricular filling pressures. Severe pulmonary hypertension secondary to who group 2. No evidence of high-grade stenosis in the coronary arteries. -VANESSA performed 07/19/2024 revealed dilated LV with EF 30 to 35%. Heavily calcified aortic valve with bicuspid versus unicuspid valve with moderate aortic regurgitation and mean gradient of 38 mmHg. Mild to moderate MR. -Generator replacement single-chamber ICD Medtronic 08/10/2020. -Lexiscan Cardiolite stress test performed 03/02/2023 revealed large anterior scar. 11/2024 Patient seen and examined in the emergency center waiting for bed in the cardiac stepdown unit. Patient's blood pressure readings remain low at 87/66, heart rate 96, pulse ox 100% on 2 L nasal cannula. Patient remains on heparin drip. Echocardiogram is pending. Patient is comfortable at rest but has significant dyspnea on exertion. He states he occasionally has mild pain between his shoulder blades. TSH is less than 0.15. Additional troponin 0.035 and 0.026. Physical examination: Gen: This is 58-year-old male patient in no acute distress. VS: reviewed HEENT: Head is atraumatic, normocephalic. Pupils equal, round. Sclerae is anicteric. NECK: Supple. No JVD. LUNGS: Diminished breath sounds. No intercostal retractions. HEART: Regular rate and rhythm. Crescendo decrescendo murmur at the right and left upper sternal border decreased S2. ABDOMEN: Soft No tenderness. EXTREMITIES: No pedal edema. No calf tenderness. NEUROLOGICAL: Patient is awake, alert and oriented x3. 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 Plan: Patient's symptoms may be related to a number of factors including heart failure, worsening valvular disease and possibly new coronary blockage but most likely related to worsening valvular disease. Patient may require transfer to [facility]. Continue patient's home cardiac medications with the following changes: Hold Entresto, Lasix, spironolactone due to hypotension Continue heparin drip Obtain urgent 2-D echocardiogram and Doppler study to assess cardiac structure and function Further recommendations to follow based upon clinical course Nurse practitioner note has been reviewed, I agree with documented findings and plan of care. Patient was seen and examined. Objective - Vital Signs Vital signs: Vital Signs Temp 98 F 11/15/24 00:40 Pulse 98 11/15/24 05:18 Resp 18 11/15/24 05:18 BP 87/66 11/15/24 05:18 Pulse Ox 100 11/15/24 05:18 FiO2 Intake & Output 11/14/24 11/14/24 11/15/24 06:59 18:59 06:59 Intake Total 84.134 181.453 Output Total 1650 800 Balance -1565.866 -618.547 Weight 78.925 kg Intake: Intake, IV Titration 84.134 181.453 Amount Heparin Sod,Pork in 0.45% 84.134 181.453 NaCl 25,000 unit In 0.45 % NaCl 1 250ml.bag @ 12 UNITS/KG/HR 9.471 mls/hr IV .Q24H [facility] Rx#: [id number] Output: Urine 1650 800 Other: # Voids 3 - Labs CBC & Chem 7: 11/15/24 01:26 11/14/24 00:01 Labs: Abnormal Lab Results - Last 24 Hours (Table) 11/14/24 11/14/24 11/14/24 Range/Units 08:15 08:15 16:56 RBC (4.40-5.60) 10*6/uL Hgb (13.0-17.0) g/dL Hct (39.6-50.0) % Eosinophils # (0.04-0.35) 10*3/uL APTT 35.6 H 35.5 H (22.0-30.0) sec POC Glucose (mg/dL) (70-110) mg/dL Troponin I 0.035 H* (0.000-0.034) ng/mL 11/14/24 11/15/24 11/15/24 Range/Units 17:32 01:26 01:26 RBC 3.77 L (4.40-5.60) 10*6/uL Hgb 11.7 L (13.0-17.0) g/dL Hct 34.9 L (39.6-50.0) % Eosinophils # 0.71 H (0.04-0.35) 10*3/uL APTT 37.1 H (22.0-30.0) sec POC Glucose (mg/dL) 164 H (70-110) mg/dL Troponin I (0.000-0.034) ng/mL
[2024-11-15 09:14] LABS: T4, Free (Free Thyroxine) 3.95 ng/dL (0.78-2.19)
[2024-11-15 12:03] LABS: Glucose,Whole Blood 107 mg/dL (70-110)
--- NOTE | 2024-11-15 12:37 | CA ---
Transthoracic Echo Report Name: Chase Buenrostro Age: 58 Gender: M : 1965 Exam Date: 11/15/2024 09:48 Exam Location: [facility] Ht (in): 68 Wt (lb): 174 Ordering Physician: Sarah Leslie MD Attending/Referring Phys: Manager China Gladys Hartley RDCS Procedure CPT: Indications: chf Cardiac Hx: AICD Technical Quality: Technically difficult study Contrast 1: Total Dose (mL): Contrast 2: Total Dose (mL): MEASUREMENTS (Male / Female) Normal Values 2D ECHO LV Diastolic Diameter PLAX 6.4 cm 4.2 - 5.9 / 3.9 - 5.3 cm LV Systolic Diameter PLAX 5.7 cm IVS Diastolic Thickness 1.3 cm 0.6 - 1.0 / 0.6 - 0.9 cm LVPW Diastolic Thickness 1.3 cm 0.6 - 1.0 / 0.6 - 0.9 cm LV Relative Wall Thickness 0.4 RV Internal Dim ED PLAX 3.7 cm LA Systolic Diameter LX 3.7 cm 3.0 - 4.0 / 2.7 - 3.8 cm LV Diastolic Volume MOD BP 199.2 cm??? 67 - 155 / 56 - 104 cm??? LV Systolic Volume MOD BP 167.7 cm??? 22 - 58 / 19 - 49 cm??? LV Ejection Fraction MOD BP 15.8 % >= 55 % LV Cardiac Index MOD BP 1863.9 cm???/min???m??? LV Diastolic Volume MOD 4C 181.3 cm??? LV Systolic Volume MOD 4C 151.0 cm??? LV Ejection Fraction MOD 4C 16.7 % LV Cardiac Index MOD 4C 1791.7 cm???/min???m??? LV Diastolic Length 4C 9.4 cm LV Systolic Length 4C 9.6 cm LV Diastolic Volume MOD 2C 212.2 cm??? LV Systolic Volume MOD 2C 178.7 cm??? LV Ejection Fraction MOD 2C 15.8 % LV Cardiac Index MOD 2C 1982.8 cm???/min???m??? LV Diastolic Length 2C 9.0 cm LV Systolic Length 2C 9.0 cm M-MODE Aortic Root Diameter MM 3.7 cm DOPPLER AV Peak Velocity 410.2 cm/s AV Peak Gradient 67.3 mmHg AV Mean Velocity 320.7 cm/s AV Mean Gradient 44.1 mmHg AV Velocity Time Integral 83.4 cm AI Peak Velocity 410.5 cm/s AI Peak Gradient 67.4 mmHg AI Pressure Half Time 175.0 ms LVOT Peak Velocity 51.6 cm/s LVOT Peak Gradient 1.1 mmHg LVOT Velocity Time Integral 9.3 cm MV Area PHT 6.6 cm??? MV E' Velocity 4.9 cm/s TR Peak Velocity 394.9 cm/s TR Peak Gradient 62.4 mmHg Right Ventricular Systolic Press 73.1 mmHg FINDINGS Left Ventricle Left ventricular ejection fraction is estimated at 15-20 %. Mildly increased septal wall thickness. Mildly increased left ventricular diastolic diameter. Moderately increased left ventricular diastolic volume. Severely increased left ventricular systolic volume. Severely decreased left ventricular ejection fraction. Right Ventricle Mild right ventricular dilatation. Severe pulmonary hypertension. Right ventricular systolic pressure estimated at 73 mm hg. Right Atrium Mild right atrial dilatation. No right atrial thrombus or mass seen. Left Atrium Normal left atrial size. No left atrial thrombus or mass present. Mitral Valve Structurally normal mitral valve. [id number] mitral regurgitation. Aortic Valve Severe aortic valve sclerosis. Severe aortic stenosis with a peak velocity of 4.1 m/s, peak gradient 67 mmHg, mean gradient 44 mmHg Tricuspid Valve Structurally normal tricuspid valve. [id number] tricuspid regurgitation. Pulmonic Valve Pulmonic valve not well visualized. Trace to mild pulmonic regurgitation. Pericardium No pericardial effusion. Aorta Normal size aortic root and proximal ascending aorta. CONCLUSIONS Left ventricular ejection fraction 15 to 20%. RVSP 88 Mild to moderate mitral regurgitation Severe/critical aortic stenosis with maximum velocity 4.6 m/s, mean gradient 55, underestimated secondary low-flow low gradient with dimensionless index 0.11 Mild to moderate tricuspid regurgitation No pericardial effusion Previewed by: Dr. Austyn Moore DO (Electronically Signed) Final Date: 15 November 2024 12:36
[2024-11-15 17:58] LABS: Glucose,Whole Blood 159 mg/dL (70-110)
--- NOTE | 2024-11-15 19:39 | P.PN ---
Progress Note - Text Progress Note Date: 11/15/24 Chief Complaint: Short of breath Pleasant 58-year-old patient who follows with Dr. Deborah Thompson. [employer] Dr. Yañez. Chronic medical conditions include CAD, diabetes, hypertension, hyperlipidemia, osteoarthritis. Has severe ischemic cardiomyopathy. Had a stent placed several years ago. He has been to [facility] has an appointment for December 09. Supposed to have valve intervention. Exact details unknown currently to me. Possibly arctic valve. For 2 weeks patient's become increasingly short of breath. Does get some pain between his shoulder blades. But predominant symptom is shortness of breath. No edema. No orthopnea. Patient's troponins were positive in the ER. Placed on IV heparin. At rest no chest pain. November 14: Patient seen in the ER this morning. A bit short of breath. Remains on IV heparin. Blood pressure running in the 80s to 90 systolic. A bit tachycardic. 2D echo showed a EF of 15 to 20%.Severe pulmonary hypertension. Severe aortic valve sclerosis/stenosis with a peak velocity of 4.1. Peak gradie nt 67 mmHg. And a mean gradient of [address] Moore from cardiology called me to say that patient to get transferred to [facility]. I called and spoke to nursing charge Rylee. And provided her with my cell number and Dr. Moore's number. Did discuss earlier with the patient. Total time spent today over 50 minutes with over 30 minutes of discussion. Active Medications Acetaminophen (Acetaminophen Tab 325 Mg Tab) 650 mg PO Q6HR PRN PRN Reason: Mild Pain or Fever > 100.5 Hydrocodone Bitart/Acetaminophen (Hydrocodone/Apap 5-325mg 1 Each Tab) 1 each PO Q6HR PRN PRN Reason: Pain Aspirin (Aspirin 81 Mg) 81 mg PO DAILY [facility] Last Admin: 11/15/24 08:34 Dose: 81 mg Atorvastatin Calcium (Atorvastatin 80 Mg Tab) 80 mg PO HS [facility] Last Admin: 11/14/24 20:07 Dose: 80 mg Dextrose/Water (Dextrose 50% Syringe 50 Ml) 25 ml IVP PER PROTOCOL PRN; Protocol PRN Reason: Hypoglycemia Dextrose/Water (Dextrose 50% Syringe 50 Ml) 50 ml IVP PER PROTOCOL PRN; Protocol PRN Reason: Hypoglycemia Heparin Sodium (Porcine) (Heparin Sodium 1,000 Un/Ml (10ml Vl)) 0 unit IV PER PROTOCOL PRN; Protocol PRN Reason: Low PTT Last Admin: 11/15/24 02:34 Dose: 1,950 unit Heparin Sodium/Sodium Chloride (25,000 unit/ Sodium Chloride) 250 mls @ 9.471 mls/hr IV .Q24H [facility]; Protocol Last Admin: 11/15/24 18:59 Dose: 18 units/kg/hr, 14.207 mls/hr Insulin Human Lispro (Insulin Lispro (Humalog) 100 Unit/Ml 10 Ml Vl) 0 unit SQ AC-TID [facility]; Protocol Last Admin: 11/15/24 18:58 Dose: Not Given Metformin HCl (Metformin 500 Mg Tab) 500 mg PO BID [facility] Last Admin: 11/15/24 08:33 Dose: 500 mg Metoprolol Succinate (Metoprolol Succinate (Er) 100 Mg Tab.Er.24h) 100 mg PO DAILY [facility] Last Admin: 11/15/24 09:02 Dose: Not Given Naloxone HCl (Naloxone 0.4 Mg/Ml 1 Ml Vial) 0.2 mg IV Q2M PRN PRN Reason: Opioid Reversal Nitroglycerin (Nitroglycerin Sl Tabs 0.4 Mg Tab) 0.4 mg SUBLINGUAL Q5M PRN PRN Reason: Chest Pain Non-Formulary Medication (Dulaglutide [Trulicity]) 3 mg SQ [facility] Tizanidine HCl (Tizanidine 4 Mg Tab) 2 mg PO TID PRN PRN Reason: Muscle Spasticity Tramadol HCl (Tramadol 50 Mg Tab) 50 mg PO Q6HR PRN PRN Reason: Pain Last Admin: 11/15/24 08:34 Dose: 50 mg Social history: Lives with his . On disability. Non-smoker. Alcohol rarely. Physical examination: VITAL SIGNS: 114, 18, 95 x 71, 96% on nasal cannula GENERAL: reclining bed awake a bit tired EYES: Pupils equal. Conjunctiva keiry l. HEENT: External appearance of nose and ears normal, oral cavity grossly normal. NECK: JVD not raised; masses not palpable. HEART: First and second heart sounds are normal; no edema. LUNGS: Respiratory rate increased; clear to auscultation. ABDOMEN: Soft, nontender, liver spleen not palpable, no masses palpable. PSYCH: Alert and oriented x3; mood and affect keiry l. MUSCULOSKELETAL:No Clubbing/cyanosis;muscles-grossly intact INVESTIGATIONS, reviewed in the clinical context: 2D echocardiogram: EF 15 to 20%. Severe arctic stenosis. Severe pulmonary hypertension. Mild to moderate TR. November 14, 2024: White count 7.2 hemoglobin 12.5 platelets 235 sodium 138 potassium 5.3 BUN 36 creatinine 0.99 Troponin I 0.044, 0.047, 0.035. proBNP 9500 EKG tracing personally reviewed by me-normal sinus rhythm. PVCs. ST segment depression in several leads. Abnormal T waves. Chest x-ray film personally reviewed by me-cardiomegaly. Assessment plan: - Acute non-Q wave NC. With preceding unstable angina Patient has underlying CAD with stent several years ago. No recent cardiac catheterization. For 2 weeks patient increasingly short of breath. Some pain between the shoulder blades with activity. Patient has known valve disease and due for intervention at [facility] on December 09. Patient may have underlying progression of CAD. IV heparin. Aspirin. Toprol-XL. - Severe aortic stenosis. Peak gradient 67 mmHg. Mean gradient 44 mmHg. 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 We do not have endocrinology service in the hospital. Patient is already on a mirela. Start with Tapazole 5 mg twice daily - Ischemic cardiomyopathy. EF 15 to 20%. 2D echo. Aldactone. Entresto. Lasix. Toprol-XL. Jardiance. - Hyperlipidemia Lipitor 80 mg nightly - Diabetes mellitus type 2 Trulicity. Jardiance. Amaryl-hold. Glucophage. Diabetic diet. Accu-Cheks with sliding scale insulin - Primary osteoarthritis Pain medication as needed - Coronary artery disease with stent previously Follows with Dr. Yañez Full code. Being followed by cardiology. Awaiting to hear from [facility]. Rylee nurse in charge reached out to the transfer team. My cell number and cell number for Dr. Moore provided. Start Tapazole 5 mg twice daily Past Medical History Past Medical History: Asthma, Coronary Artery Disease (CAD), Chest Pain / Angina, Diabetes Mellitus, Hyperlipidemia, Hypertension, Myocardial Infarction (NC), Osteoarthritis (OA) Additional Past Medical History / Comment(s): HX: Severe ischemic cardiomyopathy, chronic stable asthma, SOB W/ ACTIVITY, DJD, HX DIVERTICULITIS, aortic valve leaking per pt, hx. kidney stones Last Myocardial Infarction Date:: 11/10/16 History of Any Multi-Drug Resistant Organisms: MRSA Date of last positivie culture/infection: 2010 MDRO Source:: AREAS TO NECK,BACK,AND ARMPIT Past Surgical History: AICD, Bowel Resection, Cholecystectomy, Heart C atheterization, Heart Catheterization With Stent, Hernia Repair, Orthopedic Surgery Additional Past Surgical History / Comment(s): multiple cardiac cath's w/stents, MEDTRONIC AICD. Colostomy with reversal, pain procedure, kidney stone surg., arthroscopy left knee Past Anesthesia/Blood Transfusion Reactions: Postoperative Nausea & Vomiting (PONV) Additional Past Anesthesia/Blood Transfusion Reaction / Comment(s): Pt has never received blood. PONV once years ago, nothing since Date of Last Stent Placement:: 02/23/15 Type of Cardiac Device: AICD Device Placement Date:: 2020 New Scale [employer] Past Psychological History: No Psychological Hx Reported Smoking Status: Never smoker
[2024-11-15] MEDS: methIMAzole 5 MG TAB PO SCH (20:46)
[2024-11-15] MEDS: ZOLPIDEM 5 MG TAB PO SCH (21:12)
[2024-11-16 05:00] VITALS: RESP 18
--- NOTE | 2024-11-16 06:34 | P.PN ---
Subjective Progress Note Date: 11/16/24 Reason for Consult (text): Unstable angina History of present illness: This is 58-year-old male patient of Dr. Yañez with past medical history of coronary artery disease with prior stenting of the RCA and LAD, ischemic cardiomyopathy status post AICD, NSVT, valvular heart disease with known bicuspid aortic valve with AAS and AI as well as MR and TR, pulmonary hypertension, diabetes, hypertension, dyslipidemia, dilated ascending aorta. We have been asked to evaluate the patient for unstable angina. Patient was last seen in the office on 11/05/2024. Patient is undergoing workup at [facility] for severe symptomatic aortic stenosis and also considered for possible mitral valve clip. Patient states that he came into the hospital because he was having difficulty breathing which is improved. He denies chest pain. Patient was seen by his PCP and had a low blood pressure shortness of breath and tachycardia and upon Dr. Yañez's recommendations, patient was sent into the hospital. He has had some dizziness lightheadedness. Patient denies any recent syncopal episodes. He has been started on heparin drip. Patient is seen today in the emergency center waiting for bed on the cardiac stepdown unit. Blood pressure 79/57, heart rate 91, pulse ox 97% on 2 L nasal cannula. -EKG: Sinus rhythm with nonspecific ST-T wave changes, occasional PVCs, 94 bpm. -Chest x-ray: No acute process. -Laboratory studies: Troponin 0.044, 0.047. proBNP 9500. WBC 7.2, hemoglobin 12.5, sodium 138, potassium 5.3, BUN 36 and creatinine 0.99. -Home cardiac medications: Aspirin 81 mg daily, atorvastatin 80 mg daily, Entresto 24-26 mg 1 tablet twice daily, Jardiance 10 mg daily, Lasix 40 mg daily, metoprolol succinate 100 mg daily, Nitrostat as needed, spironolactone 25 mg daily. -Cardiac catheterization performed 07/19/2024 revealed elevated biventricular filling pressures. Severe pulmonary hypertension secondary to who group 2. No evidence of high-grade stenosis in the coronary arteries. -VANESSA performed 07/19/2024 revealed dilated LV with EF 30 to 35%. Heavily calcified aortic valve with bicuspid versus unicuspid valve with moderate aortic regurgitation and mean gradient of 38 mmHg. Mild to moderate MR. -Generator replacement single-chamber ICD Medtronic 08/10/2020. -Lexiscan Cardiolite stress test performed 03/02/2023 revealed large anterior scar. 11/15/2024 Patient seen and examined in the emergency center waiting for bed in the cardiac stepdown unit. Patient's blood pressure readings remain low at 87/66, heart rate 96, pulse ox 100% on 2 L nasal cannula. Patient remains on heparin drip. Echocardiogram is pending. Patient is comfortable at rest but has significant dyspnea on exertion. He states he occasionally has mild pain between his shoulder blades. TSH is less than 0.15. Additional troponin 0.035 and 0.026. 11/16/2024 Patient seen and examined in the emergency center waiting for a bed on the cardiac stepdown unit. Echocardiogram reveals EF 15 to 20%, RVSP 88, mild to moderate mitral regurgitation. Severe to critical aortic stenosis with maximum velocity 4.6 m/s, mean gradient 55, underestimated secondary low flow low gradient with dimensionless index 0.11. Mild to moderate tricuspid regurgitation. No pericardial effusion. Blood pressure 99/67, heart rate 104, pulse ox 97% on 2 L nasal cannula. Patient remains on heparin drip. Results of the echocardiogram reviewed with the patient yesterday afternoon with recommendations for transfer to [facility]. Dr. Moore again discussed results and plans with the patient. We anticipate transfer as soon as a bed is available. Physical examination: Gen: This is 58-year-old male patient in no acute distress. VS: reviewed HEENT: Head is atraumatic, normocephalic. Pupils equal, round. Sclerae is anicteric. NECK: Supple. No JVD. LUNGS: Diminished breath sounds. No intercostal retractions. HEART: Regular rate and rhythm. Crescendo decrescendo murmur at the right and left upper sternal border decreased S2. ABDOMEN: Soft No tenderness. EXTREMITIES: No pedal edema. No calf tenderness. NEUROLOGICAL: Patient is awake, alert and oriented x3. 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 Patient requires transfer to [facility]. Continue patient's home cardiac medications with the following changes: Hold Entresto, Lasix, spironolactone due to hypotension Continue heparin drip Further recommendations to follow based upon clinical course Nurse practitioner note has been reviewed, I agree with documented findings and plan of care. Patient was seen and examined. Objective - Vital Signs Vital signs: Vital Signs Temp 98 F 11/15/24 00:40 Pulse 104 H 11/16/24 04:00 Resp 18 11/16/24 04:00 BP 99/67 11/16/24 04:00 Pulse Ox 97 11/16/24 04:00 FiO2 Intake & Output 11/15/24 11/15/24 11/16/24 06:59 18:59 06:59 Intake Total 181.453 212.958 Output Total 800 Balance -618.547 212.958 Intake: Intake, IV Titration 181.453 212.958 Amount Heparin Sod,Pork in 0.45% 181.453 212.958 NaCl 25,000 unit In 0.45 % NaCl 1 250ml.bag @ 12 UNITS/KG/HR 9.471 mls/hr IV .Q24H [facility] Rx#: [id number] Output: Urine 800 Other: # Voids 3 - Labs CBC & Chem 7: 11/15/24 01:26 11/14/24 00:01 Labs: Abnormal Lab Results - Last 24 Hours (Table) 11/15/24 11/15/24 11/15/24 Range/Units 07:20 07:20 17:57 APTT 47.9 H (22.0-30.0) sec POC Glucose (mg/dL) 159 H (70-110) mg/dL TSH <0.015 L (0.465-4.680) mIU/L Free T4 3.95 H (0.78-2.19) ng/dL
[2024-11-16 08:43] LABS: Glucose,Whole Blood 220 mg/dL (70-110)
[2024-11-16 10:14] VITALS: TEMP 98.1
[2024-11-16 11:36] VITALS: PULSE 104
[2024-11-16 11:57] LABS: Glucose,Whole Blood 126 mg/dL (70-110)
[2024-11-16 11:58] VITALS: BP 103/91
--- NOTE | 2024-11-16 14:30 | P.PN ---
Progress Note - Text Progress Note Date: 11/16/24 Chief Complaint: Short of breath Pleasant 58-year-old patient who follows with Dr. Deborah Thompson. 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 Chronic medical conditions include CAD, diabetes, hypertension, hyperlipidemia, osteoarthritis. Has severe ischemic cardiomyopathy. Had a stent placed several years ago. He has been to [facility] has an appointment for December 09. Supposed to have valve intervention. Exact details unknown currently to me. Possibly arctic valve. For 2 weeks patient's become increasingly short of breath. Does get some pain between his shoulder blades. But predominant symptom is shortness of breath. No edema. No orthopnea. Patient's troponins were positive in the ER. Placed on IV heparin. At rest no chest pain. November 15: Patient seen in the ER this morning. A bit short of breath. Remains on IV heparin. Blood pressure running in the 80s to 90 systolic. A bit tachycardic. 2D echo showed a EF of 15 to 20%.Severe pulmonary hypertension. Severe aortic valve sclerosis/stenosis with a peak velocity of 4.1. Peak gradie nt 67 mmHg. And a mean gradient of [address] Moore from cardiology called me to say that patient to get transferred to [facility]. I called and spoke to nursing charge Rylee. And provided her with my cell number and Dr. Moore's number. Did discuss earlier with the patient. Total time spent today over 50 minutes with over 30 minutes of discussion. November 16: Tired. Started on Tapazole yesterday for hyperthyroidism. Discussed with the patient. We have not heard from [facility]. Follow-up with cardiology. Remains on IV heparin. Active Medications Acetaminophen (Acetaminophen Tab 325 Mg Tab) 650 mg PO Q6HR PRN PRN Reason: Mild Pain or Fever > 100.5 Hydrocodone Bitart/Acetaminophen (Hydrocodone/Apap 5-325mg 1 Each Tab) 1 each PO Q6HR PRN PRN Reason: Pain Aspirin (Aspirin 81 Mg) 81 mg PO DAILY [facility] Last Admin: 11/16/24 09:39 Dose: 81 mg Atorvastatin Calcium (Atorvastatin 80 Mg Tab) 80 mg PO HS [facility] Last Admin: 11/15/24 20:15 Dose: 80 mg Dextrose/Water (Dextrose 50% Syringe 50 Ml) 25 ml IVP PER PROTOCOL PRN; Protocol PRN Reason: Hypoglycemia Dextrose/Water (Dextrose 50% Syringe 50 Ml) 50 ml IVP PER PROTOCOL PRN; Protocol PRN Reason: Hypoglycemia Heparin Sodium (Porcine) (Heparin Sodium 1,000 Un/Ml (10ml Vl)) 0 unit IV PER PROTOCOL PRN; Protocol PRN Reason: Low PTT Last Admin: 11/15/24 02:34 Dose: 1,950 unit Heparin Sodium/Sodium Chloride (25,000 unit/ Sodium Chloride) 250 mls @ 9.471 mls/hr IV .Q24H [facility]; Protocol Last Admin: 11/15/24 18:59 Dose: 18 units/kg/hr, 14.207 mls/hr Insulin Human Lispro (Insulin Lispro (Humalog) 100 Unit/Ml 10 Ml Vl) 0 unit SQ AC-TID [facility]; Protocol Last Admin: 11/16/24 12:02 Dose: Not Given Metformin HCl (Metformin 500 Mg Tab) 500 mg PO BID [facility] Last Admin: 11/16/24 09:39 Dose: 500 mg Methimazole (Methimazole 5 Mg Tab) 5 mg PO BID [facility] Last Admin: 11/16/24 09:40 Dose: 5 mg Metoprolol Succinate (Metoprolol Succinate (Er) 100 Mg Tab.Er.24h) 100 mg PO DAILY [facility] Last Admin: 11/16/24 09:39 Dose: 100 mg Naloxone HCl (Naloxone 0.4 Mg/Ml 1 Ml Vial) 0.2 mg IV Q2M PRN PRN Reason: Opioid Reversal Nitroglycerin (Nitroglycerin Sl Tabs 0.4 Mg Tab) 0.4 mg SUBLINGUAL Q5M PRN PRN Reason: Chest Pain Non-Formulary Medication (Dulaglutide [Trulicity]) 3 mg SQ [facility] Tizanidine HCl (Tizanidine 4 Mg Tab) 2 mg PO TID PRN PRN Reason: Muscle Spasticity Tramadol HCl (Tramadol 50 Mg Tab) 50 mg PO Q6HR PRN PRN Reason: Pain Last Admin: 11/16/24 11:59 Dose: 50 mg Zolpidem Tartrate (Zolpidem 5 Mg Tab) 5 mg PO HS [facility] Last Admin: 11/15/24 21:12 Dose: 5 mg Social history: Lives with his . On disability. Non-smoker. Alcohol rarely. Physical examination: VITAL SIGNS: 98.1, 104, 18, 103 x 91, 99% 3 L GENERAL: Resting in bed, a bit tired EYES: Pupils equal. Conjunctiva keiry l. HEENT: External appearance of nose and ears normal, oral cavity grossly normal. NECK: JVD not raised; masses not palpable. HEART: First and second heart sounds are normal; no edema. Ejection systolic murmur LUNGS: Respiratory rate increased; clear to auscultation. ABDOMEN: Soft, nontender, liver spleen not palpable, no masses palpable. PSYCH: Alert and oriented x3; mood and affect keiry l. MUSCULOSKELETAL:No Clubbing/cyanosis;muscles-grossly intact INVESTIGATIONS, reviewed in the clinical context: 2D echocardiogram: EF 15 to 20%. Severe arctic stenosis. Severe pulmonary hypertension. Mild to moderate TR. November 14, 2024: White count 7.2 hemoglobin 12.5 platelets 235 sodium 138 potassium 5.3 BUN 36 creatinine 0.99 Troponin I 0.044, 0.047, 0.035. proBNP 9500 EKG tracing personally reviewed by me-normal sinus rhythm. PVCs. ST segment depression in several leads. Abnormal T waves. Chest x-ray film personally reviewed by me-cardiomegaly. Assessment plan: - Acute non-Q wave [place]. With preceding unstable angina Patient has underlying CAD with stent several years ago. No recent cardiac catheterization. For 2 weeks patient increasingly short of breath. Some pain between the shoulder blades with activity. Patient has known valve disease and due for intervention at [facility] on December 09. Patient may have underlying progression of CAD. IV heparin. Aspirin. Toprol-XL. - Severe aortic stenosis. Peak gradient 67 mmHg. Mean gradient 44 mmHg. 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 We do not have endocrinology service in the hospital. Patient is already on a mirela. Start with Tapazole 5 mg twice daily - Ischemic cardiomyopathy. EF 15 to 20%. 2D echo. Aldactone. Entresto. Lasix. Toprol-XL. Jardiance. - Hyperlipidemia Lipitor 80 mg nightly - Diabetes mellitus type 2 Trulicity. Jardiance. Amaryl-hold. Glucophage. Diabetic diet. Accu-Cheks with sliding scale insulin - Primary osteoarthritis Pain medication as needed - Coronary artery disease with stent previously Follows with Dr. Yañez Full code. Pending [facility] to accept the patient. Follow with cardiology. Past Medical History Past Medical History: Asthma, Coronary Artery Disease (CAD), Chest Pain / Angina, Diabetes Mellitus, Hyperlipidemia, Hypertension, Myocardial Infarction (HI), Osteoarthritis (OA) Additional Past Medical History / Comment(s): HX: Severe ischemic cardiomyopathy, chronic stable asthma, SOB W/ ACTIVITY, DJD, HX DIVERTICULITIS, aortic valve leaking per pt, hx. kidney stones Last Myocardial Infarction Date:: 11/10/16 History of Any Multi-Drug Resistant Organisms: MRSA Date of last positivie culture/infection: 2010 MDRO Source:: AREAS TO NECK,BACK,AND ARMPIT Past Surgical History: AICD, Bowel Resection, Cholecystectomy, Heart Catheterization, Heart Catheterization With Stent, Hernia Repair, Orthopedic Surgery Additional Past Surgical History / Comment(s): multiple cardiac cath's w/stents, [employer] AICD. Colostomy with reversal, pain procedure, kidney stone surg., arthroscopy left knee Past Anesthesia/Blood Transfusion Reactions: Postoperative Nausea & Vomiting (PONV) Additional Past Anesthesia/Blood Transfusion Reaction / Comment(s): Pt has never received blood. PONV once years ago, nothing since Date of Last Stent Placement:: 02/23/15 Type of Cardiac Device: AICD Device Placement Date:: 2020 [employer] Past Psychological History: No Psychological Hx Reported Smoking Status: Never smoker
--- NOTE | 2024-11-18 20:40 | P.DS ---
Providers Date of admission: 11/14/24 12:16 Expected date of discharge: 11/16/24 Attending physician: Charlie Hunter Consults: 11/14/24 01:21 Consult Physician Urgent Consulting Provider: Fetlon Yañez Consult Reason/Comments: ACS, CHF Do you want consulting provider notified?: Already Contacted Primary care physician: Deborah Thompson MD Hospital Course: Chief Complaint: Short of breath Pleasant 58-year-old patient who follows with Dr. Deborah Thompson. 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 Chronic medical conditions include CAD, diabetes, hypertension, hyperlipidemia, osteoarthritis. Has severe ischemic cardiomyopathy. Had a stent placed several years ago. He has been to [facility] has an appointment for December 09. Supposed to have valve intervention. Exact details unknown currently to me. Possibly arctic valve. For 2 weeks patient's become increasingly short of breath. Does get some pain between his shoulder blades. But predominant symptom is shortness of breath. No edema. No orthopnea. Patient's troponins were positive in the ER. Placed on IV heparin. At rest no chest pain. November 15: Patient seen in the ER this morning. A bit short of breath. Remains on IV heparin. Blood pressure running in the 80s to 90 systolic. A bit tachycardic. 2D echo showed a EF of 15 to 20%.Severe pulmonary hypertension. Severe aortic valve sclerosis/stenosis with a peak velocity of 4.1. Peak gradient 67 mmHg. And a mean gradient of [address] Moore from cardiology called me to say that patient to get transferred to [facility]. I called and spoke to nursing charge Rylee. And provided her with my cell number and Dr. Moore's number. Did discuss earlier with the patient. Total time spent today over 50 minutes with over 30 minutes of discussion. November 16: Tired. Started on Tapazole yesterday for hyperthyroidism. Discussed with the patient. We have not heard from [facility]. Follow-up with cardiology. Remains on IV heparin. Late in the evening patient was transferred to [facility] Social history: Lives with his . On disability. Non-smoker. Alcohol rarely. Physical examination: VITAL SIGNS: 98.1, 104, 18, 103 x 91, 99% 3 L GENERAL: Resting in bed, a bit tired EYES: Pupils equal. Conjunctiva keiry l. HEENT: External appearance of nose and ears normal, oral cavity grossly normal. NECK: JVD not raised; masses not palpable. HEART: First and second heart sounds are normal; no edema. Ejection systolic murmur LUNGS: Respiratory rate increased; clear to auscultation. ABDOMEN: Soft, nontender, liver spleen not palpable, no masses palpable. PSYCH: Alert and oriented x3; mood and affect keiry l. MUSCULOSKELETAL:No Clubbing/cyanosis;muscles-grossly intact INVESTIGATIONS, reviewed in the clinical context: 2D echocardiogram: EF 15 to 20%. Severe arctic stenosis. Severe pulmonary hypertension. Mild to moderate TR. November 14, 2024: White count 7.2 hemoglobin 12.5 platelets 235 sodium 138 potassium 5.3 BUN 36 creatinine 0.99 Troponin I 0.044, 0.047, 0.035. proBNP 9500 EKG tracing personally reviewed by me-normal sinus rhythm. PVCs. ST segment depression in several leads. Abnormal T waves. Chest x-ray film personally reviewed by me-cardiomegaly. Assessment plan: - Acute non-Q wave CT. With preceding unstable angina Patient has underlying CAD with stent several years ago. No recent cardiac catheterization. For 2 weeks patient increasingly short of breath. Some pain between the shoulder blades with activity. Patient has known valve disease and due for intervention at [facility] on December 09. Patient may have underlying progression of CAD. IV heparin. Aspirin. Toprol-XL. - Severe aortic stenosis. Peak gradient 67 mmHg. Mean gradient 44 mmHg. 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 We do not have endocrinology service in the hospital. Patient is already on a mirela. Start with Tapazole 5 mg twice daily - Ischemic cardiomyopathy. EF 15 to 20%. 2D echo. Aldactone. Entresto. Lasix. Toprol-XL. Jardiance. - Hyperlipidemia Lipitor 80 mg nightly - Diabetes mellitus type 2 Trulicity. Jardiance. Amaryl-hold. Glucophage. Diabetic diet. Accu-Cheks with sliding scale insulin - Primary osteoarthritis Pain medication as needed - Coronary artery disease with stent previously Follows with Dr. Yañez Full code. Disposition: Transfer to [facility] for higher level of care. Past Medical History Past Medical History: Asthma, Coronary Artery Disease (CAD), Chest Pain / Angina, Diabetes Mellitus, Hyperlipidemia, Hypertension, Myocardial Infarction (CT), Osteoarthritis (OA) Additional Past Medical History / Comment(s): HX: Severe ischemic cardiomyopathy, chronic stable asthma, SOB W/ ACTIVITY, DJD, HX DIVERTICULITIS, aortic valve leaking per pt, hx. kidney stones Last Myocardial Infarction Date:: 11/10/16 History of Any Multi-Drug Resistant Organisms: MRSA Date of last positivie culture/infection: 2010 MDRO Source:: AREAS TO NECK,BACK,AND ARMPIT Past Surgical History: AICD, Bowel Resection, Cholecystectomy, Heart Catheterization, Heart Catheterization With Stent, Hernia Repair, Orthopedic Surgery Additional Past Surgical History / Comment(s): multiple cardiac cath's w/stents, [employer] AICD. Colostomy with reversal, pain procedure, kidney stone surg., arthroscopy left knee Past Anesthesia/Blood Transfusion Reactions: Postoperative Nausea & Vomiting (PONV) Additional Past Anesthesia/Blood Transfusion Reaction / Comment(s): Pt has never received blood. PONV once years ago, nothing since Date of Last Stent Placement:: 02/23/15 Type of Cardiac Device: AICD Device Placement Date:: 2020 [employer] Past Psychological History: No Psychological Hx Reported Smoking Status: Never smoker Plan - Discharge Summary New Discharge Prescriptions: No Action Nitroglycerin Sl Tabs [Nitrostat] 0.4 mg SL Q5M PRN PRN Reason: Chest Pain Enalapril [Vasotec] 2.5 mg PO DAILY traMADol HCL [Ultram] 50 mg PO Q6HR PRN PRN Reason: Pain metFORMIN HCL [Glucophage] 500 mg PO BID Atorvastatin [Lipitor] 80 mg PO HS Metoprolol Succinate [Toprol XL] 100 mg PO DAILY Dulaglutide [Trulicity] 3 mg SQ TH Furosemide [Lasix] 40 mg PO DAILY PRN PRN Reason: Edema Sacubitril/Valsartan [Entresto 24 mg-26 mg Tablet] 1 tab PO BID Glimepiride [Amaryl] 1 mg PO AC-BRKFST Aspirin [Adult Low Dose Aspirin EC] 81 mg PO DAILY Spironolactone [Aldactone] 25 mg PO DAILY Empagliflozin [Jardiance] 10 mg PO DAILY Discharge Medication List Enalapril [Vasotec] 2.5 mg PO DAILY 10/10/13 [History] Nitroglycerin Sl Tabs [Nitrostat] 0.4 mg SL Q5M PRN 10/10/13 [History] traMADol HCL [Ultram] 50 mg PO Q6HR PRN 05/11/20 [History] metFORMIN HCL [Glucophage] 500 mg PO BID 08/07/20 [History] Atorvastatin [Lipitor] 80 mg PO HS 09/04/23 [History] Dulaglutide [Trulicity] 3 mg SQ TH 09/04/23 [History] Glimepiride [Amaryl] 1 mg PO AC-BRKFST 09/04/23 [History] Metoprolol Succinate [Toprol XL] 100 mg PO DAILY 09/04/23 [History] Furosemide [Lasix] 40 mg PO DAILY PRN 06/20/24 [History] Aspirin [Adult Low Dose Aspirin EC] 81 mg PO DAILY 07/19/24 [History] Empagliflozin [Jardiance] 10 mg PO DAILY 11/14/24 [History] Sacubitril/Valsartan [Entresto 24 mg-26 mg Tablet] 1 tab PO BID 11/14/24 [History] Spironolactone [Aldactone] 25 mg PO DAILY 11/14/24 [History] Follow up Appointment(s)/Referral(s): Deborah Thompson MD [Primary Care Provider] - 1-2 days Discharge Disposition: DC/TRNS IP HOSP W/PLND IP READ
[2024-11-20] MEDS ORDERED: NON FORMULARY DRUG (Dulaglutide [Trulicity] 3 MG/0.5 ML Each) SQ SCH (09:00)
== END 2024-11-16 12:10 | disposition short-term general hospital (02) | DRG 303 ==
LOC: EC 22:56 → 3SCARD 11-14 01:24 → OBSVTOIN 11-14 12:16 → 3SCARD 11-14 13:55
PROVIDERS: ADMIT Hospitalist; ATTEND Hospitalist
DX: I25.110 Atherosclerotic heart disease of native coronary artery with unstable angina pectoris (principal); I27.22 Pulmonary hypertension due to left heart disease; I47.20 Ventricular tachycardia, unspecified; I11.0 Hypertensive heart disease with heart failure; E11.9 Type 2 diabetes mellitus without complications; Q23.81 Bicuspid aortic valve; E05.90 Thyrotoxicosis, unspecified without thyrotoxic crisis or storm; I77.810 Thoracic aortic ectasia; I50.1 Left ventricular failure, unspecified; I08.3 Combined rheumatic disorders of mitral, aortic and tricuspid valves; E78.5 Hyperlipidemia, unspecified; I25.5 Ischemic cardiomyopathy; M19.91 Primary osteoarthritis, unspecified site; I95.89 Other hypotension; I25.2 Old myocardial infarction; Z79.82 Long term (current) use of aspirin; Z95.1 Presence of aortocoronary bypass graft; Z95.810 Presence of automatic (implantable) cardiac defibrillator; Z86.14 Personal history of Methicillin resistant Staphylococcus aureus infection; Z79.84 Long term (current) use of oral hypoglycemic drugs; Z79.899 Other long term (current) drug therapy; Z79.85 Long-term (current) use of injectable non-insulin antidiabetic drugs; Z95.5 Presence of coronary angioplasty implant and graft; Z82.49 Family history of ischemic heart disease and other diseases of the circulatory system
CPT/HCPCS: 36415; 71046; 80053; 83735; 83880; 84439; 84443; 84484; 85025; 85610; 85730; 93005; 93306; 96365; 96366; 96375; 99291